=== PATIENT | female | born 1995 | race Caucasian/White ===

== ENCOUNTER → 2020-05-28 10:51 | Outpatient (BNVA) | payer MEDICAID, SELFPAY | PROVIDERS: Visit Provider Advanced Practice Midwife | DX: N92.6 Irregular menstruation, unspecified (principal) | CPT/HCPCS: 81025; 99212 ==

== ENCOUNTER 2020-06-11 09:24 | Outpatient (REF) | payer MEDICAID, SELFPAY ==
--- NOTE | ~2020-06-11 | US_ITS ---
EXAMINATION: US OBSTETRICAL ULTRASOUND CLINICAL INFORMATION: Irregular menstruation. Positive urine test. COMPARISON: None. LMP: 04/22/2020. Gestational age by maternal dates is 7 weeks 1 day. Estimated date of delivery by maternal dates is 01/27/2021. TECHNIQUE: Routine transabdominal ultrasound pelvis is performed. FINDINGS: There is a single intrauterine gestational sac with visible yolk sac, embryo/fetus, and cardiac activity. There is no significant subchorionic hemorrhage or hematoma. HR: 127 beats per minute. CRL (crown-rump length): 0.66 cm (6 weeks and 4 days +/- 4 days). JAROD (estimated date of delivery): 01/31/2021 +/- 4 days. There is visualization of yolk sac and heartbeat. movement is not yet seen. There is a small subchorionic hypoechoic area adjacent to the gestational sac suggestive of small subchorionic bleed. MATERNAL ADNEXA: The right maternal ovary measures 3.8 x 1.8 x 2.0 cm. The left maternal ovary measures 3.4 x 2.1 x 1.5 cm. There is a corpus luteal cyst measuring 1.3 x 0.9 x 1.5 cm. There is no significant maternal adnexal mass. No maternal pelvic ascites. US/US OB <= 14 weeks fetus IMPRESSION: 1. Single intrauterine gestation with ultrasound gestational age of 6 weeks 4 days +/- 4 days. 2. Estimated date of delivery is 01/31/2021 +/- 4 days. 3. Small subchorionic bleed suspected adjacent to the gestational sac. 4. Small corpus luteal cyst left ovary.
== END 2020-06-11 09:25 | disposition home or self-care (01) ==
LOC: HO.US 09:24
PROVIDERS: Visit Provider Advanced Practice Midwife
DX: N92.6 Irregular menstruation, unspecified (principal)
CPT/HCPCS: 76801

== ENCOUNTER → 2020-06-25 09:49 | Outpatient (BNVA) | payer MEDICAID, SELFPAY | PROVIDERS: Visit Provider Advanced Practice Midwife | DX: O21.9 Vomiting of pregnancy, unspecified (principal); O26.811 Pregnancy related exhaustion and fatigue, first trimester; O99.211 Obesity complicating pregnancy, first trimester; Z3A.09 9 weeks gestation of pregnancy | CPT/HCPCS: 99212 ==

== ENCOUNTER 2020-07-09 09:40 | Outpatient (REF) | payer MEDICAID, SELFPAY ==
[2020-07-09 13:31] LABS: MANUAL DIFF FLAG NO
[2020-07-09 13:43] LABS: Basophils Percent Auto 0.2 % (0-2); Eosinophils Absolute Auto 0.1 X10*3/uL (0.0-0.4); Eosinophils Percent Auto 1.2 % (0-4); Hematocrit 40.5 % (37-47); Hemoglobin 13.8 g/dl (12.0-16.0); Imm Gran Abs Auto 0.03 X10*3/uL (0.00-0.03); Imm Gran Pct Auto 0.4 % (0.0-0.4); Lymphocytes Absolute Auto 1.9 X10*3/uL (1.2-4.9); Lymphocytes Percent Auto 22.5 % (20-40); Mean Corpuscular HGB Conc 34.1 g/dl (31.0-35.0); Mean Corpuscular Hemoglobin 29.4 pg (27.0-33.0); Mean Corpuscular Volume 86.4 fL (80-98); Mean Platelet Volume 10.2 fL (9.4-12.3); Monocytes Absolute Auto 0.4 X10*3/uL (0.1-1.2); Monocytes Percent Auto 4.5 % (2-11); Neutrophils Absolute Auto 6.1 X10*3/uL (2.0-8.3); Neutrophils Percent Auto 71.2 % (45-73); Platelet Count 285 X10*3/uL (160-400); Red Blood Count 4.69 X10*6/uL (4.20-5.50); White Blood Count 8.5 X10*3/uL (4.8-10.8)
[2020-07-09 13:46] LABS: Glucose 1 Hour 130 mg/dL
[2020-07-09 14:17] LABS: Syphilis Screen Nonreactive (Nonreactive)
[2020-07-09 14:53] LABS: Amphetamine Screen Urine Not Detected (Not Detect); Barbiturates, Urine Not Detected (Not Detect); Benzodiazepines Screen Urine Not Detected (Not Detect); Cannabinoid Screen Urine Not Detected (Not Detect); Cocaine Screen Urine Not Detected (Not Detect); Opiate Screen Urine Not Detected (Not Detect); Phencyclidine Screen Urine Not Detected (Not Detect)
[2020-07-10 01:47] LABS: CT PCR NOT DETECTED (Not Detect.); NG PCR NOT DETECTED (Not Detect.)
[2020-07-10 05:17] LABS: Rubella IgG Antibody 5.92 Index
[2020-07-11 07:45] LABS: ~HepC Num1 0.18 S/CO (0.00-0.79); ~Hepatitis C Antibody Nonreactive (Nonreactive)
[2020-07-11 08:36] LABS: HBsAGNum1 0.22 S/CO (0.00-0.99); HIV AB/AG Nonreactive (Nonreactive); HIV Num 1 0.06 S/CO (0.00-0.99); Hepatitis B Surface Antigen Negative (Negative)
== END 2020-07-09 09:41 | disposition home or self-care (01) ==
LOC: HO.LAB 09:40
PROVIDERS: Visit Provider Advanced Practice Midwife
DX: Z34.91 Encounter for supervision of normal pregnancy, unspecified, first trimester (principal); Z20.2 Contact with and (suspected) exposure to infections with a predominantly sexual mode of transmission
CPT/HCPCS: 80307; 81003; 82951; 85025; 86762; 86780; 86787; 86803; 86850; 86900; 86901; 87086; 87340; 87389; 87491; 87591; 99212

== ENCOUNTER 2020-07-11 11:28 | Outpatient (REF) | payer MEDICAID, SELFPAY ==
--- NOTE | ~2020-07-11 | US_ITS ---
EXAMINATION: OBSTETRICAL ULTRASOUND, FIRST TRIMESTER HISTORY: 24-year-old at 11.3 weeks of gestation NT screening COMPARISON: 06/11/2020 TECHNIQUE: Real time transabdominal imaging with color and M-mode Doppler. FINDINGS: A single, live IUP CRL of 45.8 mm c/w 11.3wks is noted. Heart Rate: 156 beats per minute. Normal yolk sac seen. NT was 0.96.mm. NB Present The embryo appears sonographically wnl for this GA. Both maternal ovaries are seen and appear normal. GESTATIONAL AGE: 1. Established GA: 11.3 wks 2. GA from [facility]: 11.3 wks ESTIMATED DATE OF DELIVERY: 1. Established JAROD: 01/27/2021 2. JAROD from [facility]: 01/27/2021 US/US OB 1T nuc measure IMPRESSION: 1. A single live IUP 2. Size equals dates 3. NT of 0.96 mm MFM Consultation: I reviewed the ultrasound findings along with significance of NT measurement. The NT of less than 3mm is generally reassuring. However, the sensitivity for T21 detection is only 60%. I reviewed the availability of serum aneuploidy screening which includes cell-free DNA and placental protein based tests. I discussed the sensitivity, false-positive rate, and other limitations associated with each test. I also reviewed the availability of invasive diagnostic tests that are associated small but definite risk of miscarriage. We also reviewed the differences between screening tests and diagnostic tests. After our discussion, she opted for the First trimester screening that is based on cell-free DNA or non-invasive testing (NIPT). The result will be faxed to your office in approximately 7 days. A follow up at 18 weeks for survey has been scheduled. Thank you very much for this referral. Total time 20 minutes. The time spent was devoted to counseling the patient about the disease and diagnosis, coordinating care including reviewing her records, pertinent lab data and studies, as well as discussing diagnostic evaluation and workup, plan therapeutic interventions and future disposition of care. This includes any additional research needed to obtain further information in formulating the plan of care of this patient. This note was generated with a voice recognition program. Please excuse any errors which may have been overlooked during my review of this note. Sometimes these errors may affect the content or meaning of a given sentence.
== END 2020-07-11 11:29 | disposition home or self-care (01) ==
LOC: HO.US 11:28
PROVIDERS: Visit Provider Advanced Practice Midwife
DX: Z34.90 Encounter for supervision of normal pregnancy, unspecified, unspecified trimester (principal); Z36.82 Encounter for antenatal screening for nuchal translucency
CPT/HCPCS: 76813

== ENCOUNTER 2020-07-27 13:58 | Emergency (ER) | payer MEDICAID, SELFPAY ==
[2020-07-27 14:07] VITALS: BP 152/100; PULSE 92; RESP 18; TEMP 36.8; O2SAT 98; BMI 31.8
[2020-07-27 16:34] LABS: MANUAL DIFF FLAG NO
[2020-07-27 16:35] LABS: Basophils Percent Auto 0.3 % (0-2); Eosinophils Absolute Auto 0.1 X10*3/uL (0.0-0.4); Eosinophils Percent Auto 0.6 % (0-4); Hematocrit 41.9 % (37-47); Hemoglobin 14.5 g/dl (12.0-16.0); Imm Gran Abs Auto 0.02 X10*3/uL (0.00-0.03); Imm Gran Pct Auto 0.2 % (0.0-0.4); Lymphocytes Absolute Auto 1.9 X10*3/uL (1.2-4.9); Lymphocytes Percent Auto 18.9 % (20-40); Mean Corpuscular HGB Conc 34.6 g/dl (31.0-35.0); Mean Corpuscular Hemoglobin 29.4 pg (27.0-33.0); Mean Corpuscular Volume 84.8 fL (80-98); Mean Platelet Volume 9.7 fL (9.4-12.3); Monocytes Absolute Auto 0.4 X10*3/uL (0.1-1.2); Neutrophils Absolute Auto 7.7 X10*3/uL (2.0-8.3); Platelet Count 286 X10*3/uL (160-400); Red Blood Count 4.94 X10*6/uL (4.20-5.50); Red Cell Distribution Width 12.6 % (11.0-16.0); White Blood Count 10.1 X10*3/uL (4.8-10.8)
[2020-07-27] MEDS: 0.9 % Sodium Chloride 1,000 ML 999 ML IV (16:36)
[2020-07-27] MEDS: Lactated Ringers 1,000 ML 999 ML IV (16:36)
[2020-07-27] MEDS: ondansetron HCL 4 MG/2 ML VIAL IVPUSH (16:36)
[2020-07-27 16:49] LABS: COVID-19 Test Negative (Negative); IDNOW Serial# 9DD0AD1C
[2020-07-27 16:57] LABS: Alanine Aminotransferase 20 U/L (0-31); Albumin Level 4.4 g/dL (3.5-5.0); Alkaline Phosphatase 60 U/L (39-117); Anion Gap 14 (12-20); Aspartate Amino Transferase 17 U/L (5-31); Bilirubin Direct 0.2 mg/dL (0.0-0.5); Bilirubin Total 0.4 mg/dL (0.0-1.0); Blood Urea Nitrogen 6 mg/dL (9-16); Carbon Dioxide 23 mmol/L (22-29); Chloride 104 mmol/L (96-108); Creatinine Clr Calc Pharmacy 130.1; Estimated Glomerular Filt Rate > 60; Glucose Random 96 mg/dL (60-115); Lipase 22 U/L (8-78); Potassium 4.1 mmol/L (3.3-5.1); Sodium 137 mmol/L (135-145); Total Protein 7.4 g/dL (6.5-8.0)
--- NOTE | 2020-07-27 17:29 | ED.NAVMDI ---
HPI - Nausea/Vomiting/Diarrhea General Chief complaint: Nausea/Vomiting/Diarrhea Stated complaint: VOMITING PREG Time Seen by Provider: 07/27/20 14:50 Source: patient Mode of arrival: ambulatory Limitations: no limitations History of Present Illness HPI Narrative: Patient presents ED for vomiting and not able to to keep stuff down her stomach. Patient denies any abdominal pain, vaginal bleeding, dysuria, hematuria, back pain, or flank pain. Patient taking vitamin being B6 and diphenhydramine and as prescribed by her OBGYN. Patient denies any coughing, fever, chills, chest pain, shortness of breath Associated nausea: Yes Related Data Previous Rx's Medication Instructions Recorded vitamin with calcium 1 tab PO DAILY #30 tab 05/28/20 no.72-iron 27 mg-folic acid 1 mg tablet pyridoxine (vitamin B6) 25 mg 25 mg PO TID 30 Days #90 tab 06/11/20 tablet doxylamine succinate 25 mg tablet 12.5 mg PO BEDTIME #15 tab 06/30/20 Allergies Allergy/AdvReac Type Severity Reaction Status Date / Time sulfamethoxazole Allergy Intermediate RASH Verified 07/09/20 10:07 [From BACTRIM] trimethoprim [From BACTRIM] Allergy Intermediate RASH Verified 07/09/20 10:07 Review of Systems Review of Systems: Yes all other systems are reviewed and are negative Constitutional: Constitutional: Reports as per HPI and Reports no additional constitutional complaints Eyes: Eyes: Reports as per HPI and Reports no additional eye complaints ENT: Reports system reviewed and no additional complaints, except as documented and Reports as per HPI Cardiovascular: Cardiovascular: Reports as per HPI and Reports no additional cardiovascular complaints Respiratory: Respiratory: Reports as per HPI and Reports no additional respiratory complaints Gastrointestinal: Gastrointestinal: Reports as per HPI, Reports no additional gastrointestinal complaints, Denies abdominal pain, Denies belching, Reports nausea and Reports vomiting Genitourinary: Genitourinary: Reports no additional female genitourinary complaints and Reports as per HPI Musculoskeletal: Musculoskeletal: Reports no additional musculoskeletal complaints and Reports as per HPI Neurologic: Reports system reviewed and no additional complaints, except as documented and Reports as per HPI Psychiatric: Psychiatric: Reports no additional psychiatric complaints and Reports as per HPI PMF Past Medical History Medical History Obesity (BMI 30-39.9) Family History Family History Mother HTN (hypertension) Maternal Grandmother Epilepsy Maternal Aunt Diabetes Brother Coloboma, congenital heart disease, choanal atresia, growth retardation, genital hypoplasia, ear and hearing anomaly (CHARGE) syndrome Sister Autism disorder Social History Social History Household Members: Significant Other and Children Housing: House Alcohol intake: never Special misty needs: No Agree to transfusion: Yes Advance Directives: Yes Advance Directives Information Provided: Yes Advance Directives on File: No Patient : Yes Physical Exam Vital Signs: Vital Signs: Last Vital Signs Temp 98.2 F 07/27/20 14:07 Pulse 92 07/27/20 14:07 Resp 18 07/27/20 14:07 BP 152/100 H 07/27/20 14:07 Pulse Ox 98 07/27/20 14:07 Body Mass Index 31.8 Const: General: cooperative, healthy appearing, comfortable, no acute distress, well developed, alert, awake and Physically active Orientation/consciousness: patient oriented x3 HENMT: Head: Yes normal to inspection, Yes No palpable skull fracture present, Yes normocephalic and Yes atraumatic Eyes: General: appearance normal, both eyes and all related structures Neck: Neck: Yes normal visual inspection, Yes full ROM, Yes no lymphadenopathy, Yes no meningeal signs, Yes trachea midline, Yes supple and No tender Chest: Chest palpation & inspection: normal inspection of the chest and normal palpation of entire chest wall Resp: Effort & Inspection: normal respiratory effort and able to speak in complete sentences Auscultation: clear to auscultation bilaterally Cardio: Jugular venous distension: no JVD Heart sounds: S1 normal heart sound present and S2 normal heart sound present GI: Inspection: Yes normal to inspection and No abdominal wall ecchymosis Palpation (GI): Soft to palpation, not firm, nontender, no guarding and not rigid : General: No CVA tenderness and Yes no CVA tenderness Back/Spine/Pelvis: Back: no CVA tenderness, No CVA tenderness and No back tenderness Skin: General skin exam: no rashes or lesions noted and elasticity normal Neuro: General: patient oriented x3, gait normal, no meningeal signs and CN's II-XI intact bilaterally Cranial nerves: Yes CN's II-XII intact bilaterally Extrem: General: Yes normal to inspection and Yes full ROM Psych: Appearance: grossly normal, well kempt and not disheveled Course Course Course Narrative: Patient will have labs drawn given fluid. Reevaluation(s) Reevaluation #1: Patient given fluids. Patient given Zofran. Waiting for UA. Will do p.o. challenge. No need for ultrasound. Patient is not complaining of any abdominal pain or vaginal bleeding.Sign out to [employer]EL[employer] Samira MDM - Nausea/Vomiting/Diarrhea MDM Narrative Medical decision making narrative: Hyperemesis Lab Data Result diagrams: 07/27/20 16:07/27/20 16: Labs: Lab Results 07/27/20 07/27/20 07/27/20 Range/Units 16:28 16:28 16:28 WBC 10.1 (4.8-10.8) X10*3/uL RBC 4.94 (4.20-5.50) X10*6/uL Hgb 14.5 (12.0-16.0) g/dl Hct 41.9 (37-47) % MCV 84.8 (80-98) fL MCH 29.4 (27.0-33.0) pg MCHC 34.6 (31.0-35.0) g/dl RDW 12.6 (11.0-16.0) % Plt Count 286 (160-400) X10*3/uL MPV 9.7 (9.4-12.3) fL Immature Gran % (Auto) 0.2 (0.0-0.4) % Neut % (Auto) 76.0 H (45-73) % Lymph % (Auto) 18.9 L (20-40) % [place] % (Auto) 4.0 (2-11) % Eos % (Auto) 0.6 (0-4) % Baso % (Auto) 0.3 (0-2) % Lymph # (Auto) 1.9 (1.2-4.9) X10*3/uL [place] # (Auto) 0.4 (0.1-1.2) X10*3/uL Eos # (Auto) 0.1 (0.0-0.4) X10*3/uL Baso # (Auto) 0.0 (0.0-0.2) X10*3/uL Abs Immat Gran (auto) 0.02 (0.00-0.03) X10*3/uL Absolute Neuts (auto) 7.7 (2.0-8.3) X10*3/uL Absolute Nucleated RBC 0.000 (0.0-0.012) X10*3/uL Nucleated RBC % (auto) 0.0 (0.0-0.2) /100WBC Sodium 137 (135-145) mmol/L Potassium 4.1 (3.3-5.1) mmol/L Chloride 104 (96-108) mmol/L Carbon Dioxide 23 (22-29) mmol/L Anion Gap 14 (12-20) BUN 6 L (9-16) mg/dL Creatinine 0.68 (0.5-1.4) mg/dL Estim Creat Clear Calc 130.1 Estimated GFR > 60 Random Glucose 96 (60-115) mg/dL Calcium 10.0 (8.4-10.2) mg/dL Total Bilirubin 0.4 (0.0-1.0) mg/dL Direct Bilirubin 0.2 (0.0-0.5) mg/dL AST 17 (5-31) U/L ALT 20 (0-31) U/L Alkaline Phosphatase 60 (39-117) U/L Total Protein 7.4 (6.5-8.0) g/dL Albumin 4.4 (3.5-5.0) g/dL Lipase 22 (8-78) U/L Beta HCG, Quant 97763 mIU/mL COVID-19 (NACHO) Negative (Negative) COVID-19 Clin Com See Note Discharge Plan Discharge Clinical Impression: Hyperemesis gravidarum Patient Disposition: Home, Self-Care Prescriptions: No Action Vitamin Plus Low Iron 27 mg iron- 1 mg tablet 1 tab PO DAILY Qty: 30 RF: 11 pyridoxine (vitamin B6) 25 mg tablet 25 mg PO TID 30 Days Qty: 90 RF: 1 doxylamine succinate [Nighttime Sleep-Aid (doxylamn)] 25 mg tablet 12.5 mg PO BEDTIME Qty: 15 RF: 0
[2020-07-27 18:00] VITALS: RESP 18
[2020-07-27 18:09] LABS: Glucose Urine UA NEG (NEG); Leukocyte Esterase Urine NEG (NEG); Nitrite Urine NEG (NEG); Specific Gravity - Urine 1.025 (1.005-1.025); Urine Blood NEG (NEG); Urine Ketones >=80 MG/DL (NEG); Urine Protein NEG (NEG-TRACE)
[2020-07-27 18:10] LABS: UPreg QC Valid YES; Urine Pregnancy POSITIVE (NEGATIVE)
[2020-07-27 18:11] LABS: Appearance Urine CLEAR; Color Urine YELLOW
[2020-07-27 18:13] LABS: INTERNATIONAL NORM RATIO 1.1 (0.9-1.1); Prothrombin Time 13.3 SEC (10.8-13.0)
[2020-07-27 18:15] LABS: Partial Thromboplastin Time 32.9 SEC (24.1-38.0)
== END 2020-07-27 19:05 | disposition home or self-care (01) ==
PROVIDERS: Physician Assistant; Emergency Provider Emergency Medicine Emergency Medical Services
DX: O21.0 Mild hyperemesis gravidarum (principal); Z20.822 Contact with and (suspected) exposure to COVID-19; O99.210 Obesity complicating pregnancy, unspecified trimester; E66.9 Obesity, unspecified; Z3A.00 Weeks of gestation of pregnancy not specified
CPT/HCPCS: 36415; 80053; 80076; 81003; 81025; 82248; 83690; 84702; 85025; 85610; 85730; 87635; 96361; 96374; 99284; J2405

== ENCOUNTER → 2020-08-06 10:31 | Outpatient (BNVA) | payer MEDICAID, SELFPAY | PROVIDERS: Visit Provider Advanced Practice Midwife | DX: O35.9XX0 Maternal care for (suspected) fetal abnormality and damage, unspecified, not applicable or unspecified (principal); Z3A.15 15 weeks gestation of pregnancy | CPT/HCPCS: 81003; 99212 ==

== ENCOUNTER 2020-08-29 11:02 | Outpatient (REF) | payer MEDICAID, SELFPAY ==
--- NOTE | ~2020-08-29 | US_ITS ---
EXAMINATION: US OBSTETRICAL CLINICAL INFORMATION: 24-year-old at 18.3 weeks of gestation Screening for anomaly COMPARISON: 07/11/2020 TECHNIQUE: Real-time transabdominal ultrasound was performed using C1-5 megahertz transducer. FINDINGS: A single, active, fetus is seen in vertex presentation. The placenta is posterior without previa, and the amniotic fluid volume is wnl. MEASUREMENTS: 1. Biparietal Diameter: 4.1 cm; 18.4 wks 2. Occipital Frontal Diameter: 5.2 cm 3. Head Circumference: 15.4 cm; 18.3 wks 4. Abdominal Circumference: 12.8 cm; 18.3 wks 5. Femur Length: 2.6 cm; 17.6 wks 6. Humerus Length: 2.6 cm; 18.1 wks 7. Tibia Length: 2.3 cm; 18.2 wks 8. Ulna Length: 2.4 cm; 18.3 wks 9. Lateral ventricle: 0.6 cm 10. Cerebellum: 1.9 cm; 19.3 wks 11. Cisterna Magna: 0.4 cm 12. Nuchal Fold: 3.74 mm 13. Heart Rate: 138 beats per minute Rt ovary: normal Lt ovary: normal Cervical length 3.2 cm on T/A. GESTATIONAL AGE: 1. Established GA: 18.3 wks 2. GA from [facility]: 18.3 wks ESTIMATED DATE OF DELIVERY: 1. Established JAROD: 01/27/2021 2. JAROD from [facility]: 01/27/2021 ANATOMY: The visualized anatomy includes but not limited to: 1. Cranium: Normal 2. Intracranial anatomy: cavum septum pellucidi, lateral ventricles, choroid plexus, cerebellum, posterior fossa, third and fourth ventricles. 3. face: orbits, lip/palate, profile, nasal bone 4. Heart: four-chamber view of the heart, ventricular septum, foramen ovale, pulmonary vein, left and right outflow tracts, three-vessel view, 3 vessel trachea view, aortic and ductal arches, situs.. 5. Diaphragm: Normal 6. Abdominal wall: Normal 7. Cord Insertion: Normal 8. Spine: Cervical, thoracic, lumbar, sacral. 9. Stomach: Normal size and shape 10. Right Kidney: Normal 11. Left Kidney: Normal 12. 3 vessel cord: Normal 13. Upper extremity: Open hands, fifth digit. 14. Lower extremity: Tibia, fibula, bilateral feet. 15. Bladder: Normal 16. Genitalia: Male, patient aware US/US OB /maternal det add IMPRESSION: 1. Single, living, intrauterine with appropriate biometry. 2. Normal survey DISCUSSION: I reviewed today's ultrasound findings. We discussed the limitations of ultrasound in diagnosing aneuploidy and other congenital abnormalities. I reviewed the differences between screening test and diagnostic test. Amniocentesis was discussed and declined. She was informed that the baseline incidence of congenital abnormalities is approximately 3-5%. Not all these conditions are diagnosable in utero. RECOMMENDATIONS: Follow-up when necessary Thank you for allowing me to participate in her care. Total time 30 minutes. The time spent was devoted to counseling the patient about the disease and diagnosis, coordinating care including reviewing her records, pertinent lab data and studies, as well as discussing diagnostic evaluation and workup, plan therapeutic interventions and future disposition of care. This includes any additional research needed to obtain further information in formulating the plan of care of this patient. This note was generated with a voice recognition program. Please excuse any errors which may have been overlooked during my review of this note. Sometimes these errors may affect the content or meaning of a given sentence.
== END 2020-08-29 11:03 | disposition home or self-care (01) ==
LOC: HO.US 11:02
PROVIDERS: Visit Provider Advanced Practice Midwife
DX: Z34.92 Encounter for supervision of normal pregnancy, unspecified, second trimester (principal); Z36.3 Encounter for antenatal screening for malformations
CPT/HCPCS: 76811; 76812

== ENCOUNTER → 2020-09-05 10:21 | Outpatient (BNVA) | payer MEDICAID, SELFPAY | PROVIDERS: Visit Provider Advanced Practice Midwife | DX: Z34.92 Encounter for supervision of normal pregnancy, unspecified, second trimester (principal); Z3A.19 19 weeks gestation of pregnancy | CPT/HCPCS: 99212 ==

== ENCOUNTER → 2020-10-07 11:36 | Outpatient (BNVA) | payer MEDICAID, SELFPAY | PROVIDERS: Visit Provider Advanced Practice Midwife | DX: O99.212 Obesity complicating pregnancy, second trimester (principal); Z3A.24 24 weeks gestation of pregnancy; Z88.1 Allergy status to other antibiotic agents; Z79.82 Long term (current) use of aspirin | CPT/HCPCS: 81003; 99212 ==

== ENCOUNTER 2020-11-05 10:40 | Outpatient (REF) | payer MEDICAID, SELFPAY ==
[2020-11-05 13:08] LABS: Hematocrit 34.9 % (37-47); Hemoglobin 12.1 g/dl (12.0-16.0); Mean Corpuscular HGB Conc 34.7 g/dl (31.0-35.0); Mean Corpuscular Hemoglobin 29.9 pg (27.0-33.0); Mean Corpuscular Volume 86.2 fL (80-98); Mean Platelet Volume 9.9 fL (9.4-12.3); Platelet Count 230 X10*3/uL (160-400); Red Blood Count 4.05 X10*6/uL (4.20-5.50); Red Cell Distribution Width 13.6 % (11.0-16.0); White Blood Count 9.5 X10*3/uL (4.8-10.8)
[2020-11-05 13:23] LABS: Glucose 1 Hour PP 50gm Dose 157 mg/dL (60-140)
[2020-11-05 13:50] LABS: Syphilis Screen Nonreactive (Nonreactive)
== END 2020-11-05 10:41 | disposition home or self-care (01) ==
LOC: HO.LAB 10:40
PROVIDERS: Visit Provider Advanced Practice Midwife
DX: Z34.93 Encounter for supervision of normal pregnancy, unspecified, third trimester (principal); Z3A.28 28 weeks gestation of pregnancy
CPT/HCPCS: 36415; 81003; 85027; 86780; 99212

== ENCOUNTER 2020-11-10 10:16 | Outpatient (REF) | payer MEDICAID, SELFPAY | END 2020-11-10 10:17 | disposition home or self-care (01) | LOC: HO.LAB 10:16 | PROVIDERS: Visit Provider Advanced Practice Midwife | DX: Z13.89 Encounter for screening for other disorder (principal) ==

== ENCOUNTER → 2020-11-13 13:00 | Outpatient (BNVA) | payer MEDICAID, SELFPAY | PROVIDERS: Visit Provider Advanced Practice Midwife | DX: Z34.93 Encounter for supervision of normal pregnancy, unspecified, third trimester (principal); Z3A.29 29 weeks gestation of pregnancy | CPT/HCPCS: 99211 ==

== ENCOUNTER → 2020-11-19 13:04 | Outpatient (BNVA) | payer MEDICAID, SELFPAY | PROVIDERS: Visit Provider Advanced Practice Midwife | DX: O24.410 Gestational diabetes mellitus in pregnancy, diet controlled (principal); Z3A.30 30 weeks gestation of pregnancy | CPT/HCPCS: 99212 ==

== ENCOUNTER 2020-11-28 11:18 | Outpatient (REF) | payer MEDICAID, SELFPAY ==
--- NOTE | ~2020-11-28 | US_ITS ---
EXAMINATION: OBSTETRICAL ULTRASOUND, Follow up HISTORY: A 25-year-old at 31.3 weeks of gestation GDM on diet COMPARISON: 08/29/2020 TECHNIQUE: Real time transabdominal imaging with color and M-mode Doppler. PRESENTATION: Vertex PLACENTA LOCATION: Posterior without previa AMNIOTIC FLUID: [place] 13.8 MEASUREMENTS: 1. Biparietal Diameter: 7.8 cm; 31.3 wks 2. Head Circumference: 28.6 cm; 31.3 wks 3. Abdominal Circumference: 26.4 cm; 30.4 wks 4. Femur Length: 6.03 cm; 31.3 wks 5. Heart Rate: 134 beats per minute WEIGHT: EFW: 1672 grams (3 lbs 11 oz) -- 24 %. BIOPHYSICAL PROFILE: Motion: 2 Tone: 2 Breathin Amniotic Fluid: 2 Total score: 8/8 GESTATIONAL AGE: 1. Established GA: 31.3 wks 2. GA from [facility]: 31.2 wks ESTIMATED DATE OF DELIVERY: 1. Established JAROD: 01/27/2021 2. JAROD from [facility]: 01/28/2021 US/US OB follow up IMPRESSION: 1. A single active fetus is in vertex presentation 2. Size equals dates 3. Normal BPP score and amniotic fluid index. Patient is currently on GDM diet and monitoring her fingerstick glucose values. She was unable to tolerate her 1 hour GLT. According to patient, most of her fasting and postprandial values are within target range. I gave her reassurance regarding the size. We reviewed the clinical consequences of suboptimally controlled maternal serum glucose. Maternal hypoglycemia has been associated with the increased incidence of macrosomia and hypoglycemia. If her fingerstick glucose values are acceptable on diet alone, a follow-up evaluation in approximately one month is suggested. (Not scheduled) Thank you very much for this referral. Total time 30 minutes. The time spent was devoted to counseling the patient about the disease and diagnosis, coordinating care including reviewing her records, pertinent lab data and studies, as well as discussing diagnostic evaluation and workup, plan therapeutic interventions and future disposition of care. This includes any additional research needed to obtain further information in formulating the plan of care of this patient. This note was generated with a voice recognition program. Please excuse any errors which may have been overlooked during my review of this note. Sometimes these errors may affect the content or meaning of a given sentence.
== END 2020-11-28 11:19 | disposition home or self-care (01) ==
LOC: HO.US 11:18
PROVIDERS: Visit Provider Advanced Practice Midwife
DX: O24.419 Gestational diabetes mellitus in pregnancy, unspecified control (principal); Z3A.31 31 weeks gestation of pregnancy
CPT/HCPCS: 76816

== ENCOUNTER → 2020-12-02 13:22 | Outpatient (BNVA) | payer MEDICAID, SELFPAY | PROVIDERS: Visit Provider Advanced Practice Midwife | DX: Z34.83 Encounter for supervision of other normal pregnancy, third trimester (principal); Z3A.32 32 weeks gestation of pregnancy | CPT/HCPCS: 81003; 99212 ==

== ENCOUNTER → 2020-12-04 13:02 | Outpatient (BNVA) | payer MEDICAID, SELFPAY | PROVIDERS: Visit Provider Obstetrics & Gynecology | DX: O24.410 Gestational diabetes mellitus in pregnancy, diet controlled (principal); Z3A.32 32 weeks gestation of pregnancy | CPT/HCPCS: 59025; 99212 ==

== ENCOUNTER 2020-12-16 08:53 | Outpatient (REF) | payer MEDICAID, SELFPAY ==
--- NOTE | ~2020-12-16 | US_ITS ---
EXAMINATION: US OBSTETRICAL (BIOPHYSICAL PROFILE) CLINICAL INFORMATION: Variable deceleration COMPARISON: Ultrasound OB 11/28/2020 TECHNIQUE: Ultrasound of the pelvis is performed. Biophysical profile is performed over 30 minutes with assessment of breathing, gross body movement, tone, and qualitative amniotic fluid volume. Each matrix is scored 0 or 2, depending if the metric is present. Maximum total score possible is 8. Examination is not intended to assess for anomalies. FINDINGS: POSITION: Cephalic PLACENTA: Posterior, grade 2 AMNIOTIC FLUID INDEX: 10.5 cm CARDIAC ACTIVITY: 136 beats per minute BIOPHYSICAL PROFILE: Motion: 2 Tone: 2 Breathin Amniotic Fluid: 2 Total score: 8/8 US/US OB biophysical profile IMPRESSION: 1. Single intrauterine gestation in cephalic position with posterior placenta. 2. Total biophysical score is 8 (scale 0-8). 3. Amniotic fluid index 10.5 cm. 4. cardiac activity 136 beats per minute.
[2020-12-17 09:05] LABS: BV Int Neg Control Negative (Negative); BV Int Pos Control Positive (Positive)
[2020-12-17 11:13] LABS: CT PCR NOT DETECTED (Not Detect.); NG PCR NOT DETECTED (Not Detect.)
== END 2020-12-16 08:54 | disposition home or self-care (01) ==
LOC: HO.US 08:53
PROVIDERS: Visit Provider Advanced Practice Midwife
DX: O36.8330 Maternal care for abnormalities of the fetal heart rate or rhythm, third trimester, not applicable or unspecified (principal); O26.893 Other specified pregnancy related conditions, third trimester; N89.8 Other specified noninflammatory disorders of vagina
CPT/HCPCS: 59025; 76819; 81003; 87480; 87491; 87510; 87591; 87660; 99212

== ENCOUNTER → 2020-12-18 13:41 | Outpatient (BNVA) | payer MEDICAID, SELFPAY | PROVIDERS: Visit Provider Advanced Practice Midwife | DX: O24.419 Gestational diabetes mellitus in pregnancy, unspecified control (principal); Z3A.34 34 weeks gestation of pregnancy; O99.891 Other specified diseases and conditions complicating pregnancy; Z86.59 Personal history of other mental and behavioral disorders | CPT/HCPCS: 99212 ==

== ENCOUNTER 2020-12-22 11:42 | Outpatient (REF) | payer MEDICAID, SELFPAY ==
[2020-12-22 13:16] LABS: Hemoglobin 12.8 g/dl (12.0-16.0); Mean Corpuscular HGB Conc 34.6 g/dl (31.0-35.0); Mean Corpuscular Hemoglobin 30.3 pg (27.0-33.0); Mean Corpuscular Volume 87.5 fL (80-98); Mean Platelet Volume 10.6 fL (9.4-12.3); Platelet Count 230 X10*3/uL (160-400); Red Blood Count 4.23 X10*6/uL (4.20-5.50); White Blood Count 9.6 X10*3/uL (4.8-10.8)
[2020-12-22 13:32] LABS: Alanine Aminotransferase 18 U/L (0-31); Aspartate Amino Transferase 17 U/L (5-31); Blood Urea Nitrogen 7 mg/dL (9-16)
[2020-12-22 14:10] LABS: Creatinine Urine 20.22 mg/dL; Total Protein Urine Random < 7 mg/dL (<12)
== END 2020-12-22 11:43 | disposition home or self-care (01) ==
LOC: HO.LAB 11:42
PROVIDERS: Visit Provider Advanced Practice Midwife
DX: O26.893 Other specified pregnancy related conditions, third trimester (principal); R03.0 Elevated blood-pressure reading, without diagnosis of hypertension; R51.9 Headache, unspecified; O24.419 Gestational diabetes mellitus in pregnancy, unspecified control; Z3A.34 34 weeks gestation of pregnancy
CPT/HCPCS: 36415; 84156; 84450; 84460; 84520; 85027; 99212

== ENCOUNTER 2021-01-07 11:47 | Outpatient (REF) | payer MEDICAID, SELFPAY ==
[2021-01-07 16:39] LABS: CT PCR NOT DETECTED (Not Detect.); NG PCR NOT DETECTED (Not Detect.)
[2021-01-08 10:55] LABS: BV Int Neg Control Negative (Negative); BV Int Pos Control Positive (Positive)
== END 2021-01-07 11:48 | disposition home or self-care (01) ==
LOC: HO.LAB 11:47
PROVIDERS: Visit Provider Advanced Practice Midwife
DX: O26.899 Other specified pregnancy related conditions, unspecified trimester (principal); O99.213 Obesity complicating pregnancy, third trimester; N89.8 Other specified noninflammatory disorders of vagina; Z3A.37 37 weeks gestation of pregnancy; Z68.38 Body mass index [BMI] 38.0-38.9, adult
CPT/HCPCS: 87081; 87480; 87491; 87510; 87591; 87660; 99212

== ENCOUNTER → 2021-01-12 13:00 | Outpatient (BNVA) | payer MEDICAID, SELFPAY | PROVIDERS: Visit Provider Advanced Practice Midwife | DX: O24.419 Gestational diabetes mellitus in pregnancy, unspecified control (principal); E66.9 Obesity, unspecified; Z3A.37 37 weeks gestation of pregnancy | CPT/HCPCS: 81003; 99212 ==

== ENCOUNTER → 2021-01-13 13:54 | Outpatient (BNVA) | payer MEDICAID, SELFPAY | PROVIDERS: Visit Provider Advanced Practice Midwife | DX: O24.419 Gestational diabetes mellitus in pregnancy, unspecified control (principal); O36.8330 Maternal care for abnormalities of the fetal heart rate or rhythm, third trimester, not applicable or unspecified; Z3A.38 38 weeks gestation of pregnancy | CPT/HCPCS: 59025; 99212 ==

== ENCOUNTER → 2021-01-14 14:04 | Outpatient (BNVA) | payer MEDICAID, SELFPAY | PROVIDERS: Visit Provider Advanced Practice Midwife | DX: O16.3 Unspecified maternal hypertension, third trimester (principal); Z3A.38 38 weeks gestation of pregnancy | CPT/HCPCS: 99212 ==

== ENCOUNTER → 2021-01-19 14:48 | Outpatient (BNVA) | payer MEDICAID, SELFPAY | PROVIDERS: Visit Provider Advanced Practice Midwife | DX: O14.95 Unspecified pre-eclampsia, complicating the puerperium (principal); Z3A.38 38 weeks gestation of pregnancy | CPT/HCPCS: 99212 ==

== ENCOUNTER → 2021-03-02 14:03 | Outpatient (BNVA) | payer MEDICAID, SELFPAY | PROVIDERS: Visit Provider Advanced Practice Midwife | DX: O14.95 Unspecified pre-eclampsia, complicating the puerperium (principal); Z30.011 Encounter for initial prescription of contraceptive pills | CPT/HCPCS: 99212 ==

== ENCOUNTER 2021-03-26 12:37 | Outpatient (REF) | payer MEDICAID, SELFPAY ==
--- NOTE | ~2021-03-26 | XR_ITS ---
EXAMINATION: XR WRIST, LEFT CLINICAL INFORMATION: Left wrist pain COMPARISON: None TECHNIQUE: Four views of the left wrist. FINDINGS: Visualized portion of the distal left radius and ulna demonstrate no fracture. Carpal rows are well aligned. No carpal bone fracture. No focal soft tissue swelling of the wrist. Visualized metacarpals demonstrate no fracture. XR/XR wrist LT min 3V IMPRESSION: Unremarkable radiographs of the left wrist.
== END 2021-03-26 12:38 | disposition home or self-care (01) ==
LOC: HO.XRAY 12:37
PROVIDERS: PCP Registered Nurse Community Health; Visit Provider Registered Nurse Community Health
DX: M25.532 Pain in left wrist (principal)
CPT/HCPCS: 73110

== ENCOUNTER → 2021-04-03 13:39 | Outpatient (BNVA) | payer MEDICAID, SELFPAY | PROVIDERS: PCP Registered Nurse Community Health; Visit Provider Advanced Practice Midwife | DX: Z30.09 Encounter for other general counseling and advice on contraception (principal); R51.9 Headache, unspecified; T38.4X5A Adverse effect of oral contraceptives, initial encounter; Z87.59 Personal history of other complications of pregnancy, childbirth and the puerperium | CPT/HCPCS: 99212 ==

== ENCOUNTER → 2021-05-04 14:42 | Outpatient (BNVA) | payer MEDICAID, SELFPAY | PROVIDERS: Visit Provider Advanced Practice Midwife ==

== ENCOUNTER 2021-06-20 13:42 | Emergency (ER) | payer MEDICAID, SELFPAY ==
--- NOTE | ~2021-06-20 | US_ITS ---
EXAMINATION: US ABDOMEN LIMITED CLINICAL INFORMATION: Upper abdominal pain and nausea. COMPARISON: None TECHNIQUE: Real-time imaging of the right upper quadrant abdominal viscera. FINDINGS: PANCREAS: Normal. LIVER: Normal. The liver is normal in size. The liver contour is normal. Parenchymal echogenicity is normal. No focal hepatic lesion. There is no intrahepatic biliary duct dilatation seen. GALLBLADDER: Echogenic sludge. The gallbladder is physiologically distended without evidence of stones, polyps, wall thickening or pericholecystic fluid. COMMON BILE DUCT: Normal in caliber measuring 0.3 cm in diameter. RIGHT KIDNEY: Increased echogenicity of the renal pyramids. No hydronephrosis. No renal calculi or focal parenchymal lesions. The kidney measures 13.4 cm in maximum dimension. FREE FLUID: None. US/US abdomen limited IMPRESSION: Increased echogenicity of the renal pyramids which is nonspecific but could be seen in cases of medullary nephrocalcinosis. Recommend clinical correlation. Echogenic gallbladder sludge with no shadowing stones, gallbladder wall thickening nor pericholecystic free fluid.
[2021-06-20 13:54] VITALS: BP 154/69; PULSE 108; RESP 20; TEMP 36.1; O2SAT 98; BMI 35.4
[2021-06-20] MEDS: Ondansetron ODT 4 MG TAB.RAPDIS TRANSLINGU (13:57)
[2021-06-20 14:49] LABS: MANUAL DIFF FLAG NO
[2021-06-20 15:00] LABS: Basophils Percent Auto 0.2 % (0-2); Eosinophils Absolute Auto 0.1 X10*3/uL (0.0-0.4); Eosinophils Percent Auto 0.7 % (0-4); Hematocrit 46.1 % (37.0-47.0); Hemoglobin 15.7 g/dl (12.0-16.0); Imm Gran Abs Auto 0.03 X10*3/uL (0.00-0.03); Imm Gran Pct Auto 0.4 % (0.0-0.4); Lymphocytes Absolute Auto 0.9 X10*3/uL (1.2-4.9); Lymphocytes Percent Auto 10.5 % (20-40); Mean Corpuscular HGB Conc 34.1 g/dl (31.0-35.0); Mean Corpuscular Volume 85.2 fL (80.0-98.0); Mean Platelet Volume 9.5 fL (9.4-12.3); Monocytes Absolute Auto 0.4 X10*3/uL (0.1-1.2); Monocytes Percent Auto 4.6 % (2-11); Neutrophils Absolute Auto 6.9 x10*3/uL (2.0-8.3); Neutrophils Percent Auto 83.6 % (45-73); Platelet Count 285 X10*3/uL (160-400); Red Blood Count 5.41 X10*6/uL (4.20-5.50); White Blood Count 8.3 X10*3/uL (4.8-10.8)
[2021-06-20 15:05] LABS: COVID-19 Test Negative (Negative); IDNOW Serial# 55D5AD1C; Influenza A Negative (Negative); Influenza B2 Negative (Negative)
[2021-06-20 15:11] LABS: Anion Gap 10 (12-20); Blood Urea Nitrogen 12 mg/dL (9-16); Calcium 9.5 mg/dL (8.4-10.2); Carbon Dioxide 26 mmol/L (22-29); Chloride 105 mmol/L (96-108); Creatinine Clr Calc Pharmacy 120.4; Estimated Glomerular Filt Rate > 60; Glucose Random 92 mg/dL (60-115); Potassium 4.4 mmol/L (3.3-5.1); Sodium 137 mmol/L (135-145)
--- NOTE | 2021-06-20 16:48 | ED.ABDPAIN ---
HPI - Abdominal Pain General Chief Complaint: Nausea/Vomiting/Diarrhea Stated Complaint: Headache/Nausea Time Seen by Provider: 06/20/21 16:23 Source: patient Mode of arrival: ambulatory Limitations: no limitations History of Present Illness HPI narrative: 25-year-old female with a past medical history of gestational diabetes and who had high blood pressure while she was a year ago presenting to the ED with complaints of nausea/diarrhea and lower abdominal cramping since yesterday. She reports intermittent headaches. She is also concerned about her blood glucose level reports that she wants to see if her blood sugars still high due to while she was it was high. She also reports that she wants her blood pressure recheck due to she believes her blood pressure has been running high and she has tried to talk to her doctor about this although her doctor believes that she is too young to have high blood pressure. She denies any fevers, chills, dizziness, neck pain/stiffness, trouble swallowing or breathing, chest pain or shortness of breath, dyspnea on exertion, orthopnea, palpitations, paresthesias, radiation of the abdominal pain, dysuria, hematuria, abnormal vaginal discharge, black or bloody stools, vomiting, constipation, recent travel or sick contacts, bad food exposure, others with similar symptoms, recent antibiotic usage, recent surgery or procedure, recent injury, similar symptoms in the past, possible bad food exposure or any other symptoms complaints or concerns at this time. MD elicited complaint: abdominal pain Pertinent past history: none Onset (ago): day(s) (2) Pain Consistency: constant Location: epigastric, LUQ and RUQ Severity: moderate Quality: cramping and aching Radiation: none Migration to: no migration Exacerbating factors: nothing Relieving factors: nothing Associated symptoms: nausea, vomiting and diarrhea Related Data Date of Last Menstrual Period: 05/29/21 Previous Rx's Medication Instructions Recorded norethindrone (contraceptive) 0.35 0.35 mg PO DAILY #84 tab 04/03/21 mg tablet dicyclomine 20 mg tablet 20 mg PO TID #14 tab 06/20/21 ondansetron 4 mg disintegrating 4 mg PO Q6-8H PRN #14 tab 06/20/21 tablet Allergies Allergy/AdvReac Type Severity Reaction Status Date / Time sulfamethoxazole Allergy Intermediate RASH Verified 05/04/21 14:57 [From BACTRIM] trimethoprim [From BACTRIM] Allergy Intermediate RASH Verified 03/02/21 14:25 Review of Systems Review of Systems Constitutional : No Fever, No Chills, No Night Sweats, No Fatigue, No Malaise Cardiovascular : No Chest Pain, No SOB Respiratory : No Cough, No Sputum, No Wheezing, No Dyspnea Gastrointestinal : + Nausea, No Vomiting, + Diarrhea, + abdominal Pain, No Hematochezia, No Melena Genitourinary : No irregular bleeding, No Dysuria, No Urinary Frequency, No Hematuria,No Urinary Incontinence, No Urgency, No Flank Pain Musculoskeletal : No joint pain, No Myalgias, No Joint Swelling Skin : No Skin Lesions, No rash Neuro : No Weakness, No Numbness, No Paresthesias, No Loss of Consciousness, No Dizziness, + Headache Heme/Lymph: No Lymphadenopathy Endocrine : No Temperature Intolerance Yes all other systems are reviewed and are negative ON LICENSE OF [facility] Past Medical History Attestation statement: The following information was validated with the patient. Medical History Fall (on) (from) other stairs and steps, initial encounter Obesity (BMI 30-39.9) Date of Last Menstrual Period: 05/29/21 Family History Family History Mother HTN (hypertension) Maternal Grandmother Epilepsy Maternal Aunt Diabetes Brother Coloboma, congenital heart disease, choanal atresia, growth retardation, genital hypoplasia, ear and hearing anomaly (CHARGE) syndrome Sister Autism disorder Social History Social History Household Members: Significant Other and Children Housing: House Alcohol intake: never Patient Tobacco Use Status: Never used Tobacco Special misty needs: No Agree to transfusion: Yes Advance Directives: No Advance Directives Information Provided: No Patient : No Physical Exam ED Vital Signs: Vital Signs - 24 hr 06/20/21 13:54 Temperature 97.0 F Pulse Rate 108 H Respiratory Rate 20 Blood Pressure 154/69 H Pulse Oximetry 98 BMI result Body Mass Index 35.4 Vital signs have been reviewed and blood pressure 154/69. Pulse 108. Respiration 20. Temperature 97.0 degrees. Oxygen 98% on room air. Appearance: Alert. Oriented X3. No acute distress. Head: Normal external exam. Normocephalic. Eyes: PERRLA. EOMI. Conjunctiva and sclera normal. Eyelids normal. ENT: Pharynx normal. Uvula midline. Moist mucous membranes. No trismus noted. No drooling noted. No muffled voice noted. Neck: Normal inspection. Neck supple. FROM. No adenopathy. No meningeal signs. CVS: Normal heart rate and rhythm. Heart sound normal. No murmurs noted. Pulses normal throughout. Respiratory: No respiratory distress. Painless inspiration. Breath sounds normal. No wheezes/rales/rhonchi noted. Chest nontender. No accessory muscle usage noted or decreased air movement noted. Abdomen: Soft and mild tenderness palpation to the epigastric/right upper quadrant Nondistended. No guarding. No rigidity. Bowel sounds normal in all 4 quadrants. No distention noted. No organomegaly noted. No visible injury noted. No rebound tenderness. Negative Rovsing sign. Negative obturator's sign. Negative psoas sign. Negative Mondragon sign. Back: No CVA tenderness. Full range of motion noted. Skin: Skin warm and dry. Normal skin color. Normal skin turgor. No rashes/lesions/lacerations noted. Extremities: Extremities exhibit normal range of motion. Extremities nontender. Neuro: Oriented X 3. No motor deficit. No sensory deficit. Reflexes normal. Normal steady gait. CN's II-XII intact bilaterally? Course Course Course Narrative: 25-year-old female with a past medical history of gestational diabetes and who had high blood pressure while she was a year ago presenting to the ED with complaints of nausea/diarrhea and lower abdominal cramping since yesterday. She reports intermittent headaches. She is also concerned about her blood glucose level reports that she wants to see if her blood sugars still high due to while she was it was high. She also reports that she wants her blood pressure recheck due to she believes her blood pressure has been running high and she has tried to talk to her doctor about this although her doctor believes that she is too young to have high blood pressure. Labs obtained including an A1c level and all within normal limits. Serum quant negative for . Patient negative for flu and COVID. Abdominal ultrasound revealed increased echogenic of the renal pyramids which is nonspecific but could be seen in cases of Medullary nephrocalcinosis. Otherwise no other acute processes. Therefore at this time will DC home with symptomatic treatment and instructions return if any new or worsening symptoms to follow up with PCP regarding her high blood pressure to possibly start her on blood pressure medication. Patient understands agrees with this plan. MDM - Abdominal Pain Medical Records Attestation: I reviewed the patient's medical records. Lab Data Attestation: I reviewed the patient's lab results. Result diagrams: 06/20/21 14:43 06/20/21 14:43 Labs: Lab Results 06/20/21 06/20/21 06/20/21 Range/Units 14:43 14:43 14:43 WBC 8.3 (4.8-10.8) X10*3/uL RBC 5.41 (4.20-5.50) X10*6/uL Hgb 15.7 (12.0-16.0) g/dl Hct 46.1 (37.0-47.0) % MCV 85.2 (80.0-98.0) fL MCH 29.0 (27.0-33.0) pg MCHC 34.1 (31.0-35.0) g/dl RDW 12.0 (11.0-16.0) % Plt Count 285 (160-400) X10*3/uL MPV 9.5 (9.4-12.3) fL Immature Gran % (Auto) 0.4 (0.0-0.4) % Neut % (Auto) 83.6 H (45-73) % Lymph % (Auto) 10.5 L (20-40) % Pecos % (Auto) 4.6 (2-11) % Eos % (Auto) 0.7 (0-4) % Baso % (Auto) 0.2 (0-2) % Lymph # (Auto) 0.9 L (1.2-4.9) X10*3/uL [place] # (Auto) 0.4 (0.1-1.2) X10*3/uL Eos # (Auto) 0.1 (0.0-0.4) X10*3/uL Baso # (Auto) 0.0 (0.0-0.2) X10*3/uL Abs Immat Gran (auto) 0.03 (0.00-0.03) X10*3/uL Absolute Neuts (auto) 6.9 (2.0-8.3) x10*3/uL Absolute Nucleated RBC 0.000 (0.0-0.012) X10*3/uL Nucleated RBC % (auto) 0.0 (0.0-0.2) /100WBC Sodium 137 (135-145) mmol/L Potassium 4.4 (3.3-5.1) mmol/L Chloride 105 (96-108) mmol/L Carbon Dioxide 26 (22-29) mmol/L Anion Gap 10 L (12-20) BUN 12 (9-16) mg/dL Creatinine 0.77 (0.5-1.4) mg/dL Estim Creat Clear Calc 120.4 Estimated GFR > 60 Random Glucose 92 (60-115) mg/dL Estimat Average Glucose mg/dL Hemoglobin A1c % % Calcium 9.5 (8.4-10.2) mg/dL Magnesium 1.8 (1.6-2.6) mg/dL Total Bilirubin 0.6 (0.0-1.0) mg/dL Direct Bilirubin 0.2 (0.0-0.5) mg/dL AST 20 (5-31) U/L ALT 25 (0-31) U/L Alkaline Phosphatase 74 D (39-117) U/L Total Protein 7.4 (6.5-8.0) g/dL Albumin 4.4 (3.5-5.0) g/dL Lipase 18 (8-78) U/L Beta HCG, Quant < 2 mIU/mL COVID-19 (NACHO) (Negative) COVID-19 Clin Com Influenza Type A (MARQUISE) Negative (Negative) Influenza Type B (MARQUISE) Negative (Negative) Influenza A & B Note See Note 06/20/21 06/20/21 Range/Units 14:43 14:43 WBC (4.8-10.8) X10*3/uL RBC (4.20-5.50) X10*6/uL Hgb (12.0-16.0) g/dl Hct (37.0-47.0) % MCV (80.0-98.0) fL MCH (27.0-33.0) pg MCHC (31.0-35.0) g/dl RDW (11.0-16.0) % Plt Count (160-400) X10*3/uL MPV (9.4-12.3) fL Immature Gran % (Auto) (0.0-0.4) % Neut % (Auto) (45-73) % Lymph % (Auto) (20-40) % Pecos % (Auto) (2-11) % Eos % (Auto) (0-4) % Baso % (Auto) (0-2) % Lymph # (Auto) (1.2-4.9) X10*3/uL [place] # (Auto) (0.1-1.2) X10*3/uL Eos # (Auto) (0.0-0.4) X10*3/uL Baso # (Auto) (0.0-0.2) X10*3/uL Abs Immat Gran (auto) (0.00-0.03) X10*3/uL Absolute Neuts (auto) (2.0-8.3) x10*3/uL Absolute Nucleated RBC (0.0-0.012) X10*3/uL Nucleated RBC % (auto) (0.0-0.2) /100WBC Sodium (135-145) mmol/L Potassium (3.3-5.1) mmol/L Chloride (96-108) mmol/L Carbon Dioxide (22-29) mmol/L Anion Gap (12-20) BUN (9-16) mg/dL Creatinine (0.5-1.4) mg/dL Estim Creat Clear Calc Estimated GFR Random Glucose (60-115) mg/dL Estimat Average Glucose 97 mg/dL Hemoglobin A1c % 5.0 % Calcium (8.4-10.2) mg/dL Magnesium (1.6-2.6) mg/dL Total Bilirubin (0.0-1.0) mg/dL Direct Bilirubin (0.0-0.5) mg/dL AST (5-31) U/L ALT (0-31) U/L Alkaline Phosphatase (39-117) U/L Total Protein (6.5-8.0) g/dL Albumin (3.5-5.0) g/dL Lipase (8-78) U/L Beta HCG, Quant mIU/mL COVID-19 (NACHO) Negative (Negative) COVID-19 Clin Com See Note Influenza Type A (MARQUISE) (Negative) Influenza Type B (MARQUISE) (Negative) Influenza A & B Note Imaging Data abd US limited: Attestation: I personally reviewed and interpreted this imaging study as follows: Radiologist's impression: FINDINGS: PANCREAS: Normal. LIVER: Normal. The liver is normal in size. The liver contour is normal. Parenchymal echogenicity is normal. No focal hepatic lesion. There is no intrahepatic biliary duct dilatation seen. GALLBLADDER: Echogenic sludge. The gallbladder is physiologically distended without evidence of stones, polyps, wall thickening or pericholecystic fluid. COMMON BILE DUCT: Normal in caliber measuring 0.3 cm in diameter. RIGHT KIDNEY: Increased echogenicity of the renal pyramids. No hydronephrosis. No renal calculi or focal parenchymal lesions. The kidney measures 13.4 cm in maximum dimension. FREE FLUID: None. US/US abdomen limited IMPRESSION: Increased echogenicity of the renal pyramids which is nonspecific but could be seen in cases of medullary nephrocalcinosis. Recommend clinical correlation. ? Echogenic gallbladder sludge with no shadowing stones, gallbladder wall thickening nor pericholecystic free fluid. Discharge Plan Discharge Clinical Impression: High blood pressure, Acute viral syndrome Patient Disposition: Home, Self-Care Instructions: Heart Healthy Diet (ED), How to Take a Blood Pressure (ED), Viral Syndrome (ED) Prescriptions: New ondansetron 4 mg tablet,disintegrating 4 mg PO Q6-8H PRN (Reason: nausea and vomiting) Qty: 14 0RF dicyclomine 20 mg tablet 20 mg PO TID Qty: 14 0RF No Action norethindrone (contraceptive) 0.35 mg tablet 0.35 mg PO DAILY Qty: 84 4RF Referrals: [facility] [Primary Care Provider] - Print Language: Albanian
[2021-06-20 16:53] LABS: HCG Quantitative < 2 mIU/mL
[2021-06-20 17:03] LABS: Estimated Average Glucose 97 mg/dL
[2021-06-20 17:07] LABS: Alanine Aminotransferase 25 U/L (0-31); Albumin Level 4.4 g/dL (3.5-5.0); Alkaline Phosphatase 74 U/L (39-117); Aspartate Amino Transferase 20 U/L (5-31); Bilirubin Direct 0.2 mg/dL (0.0-0.5); Bilirubin Total 0.6 mg/dL (0.0-1.0); Lipase 18 U/L (8-78); Magnesium 1.8 mg/dL (1.6-2.6); Total Protein 7.4 g/dL (6.5-8.0)
[2021-06-20 18:36] LABS: Appearance Urine CLEAR; Color Urine YELLOW; Glucose Urine UA NEG (NEG); Leukocyte Esterase Urine NEG (NEG); Nitrite Urine NEG (NEG); Urine Blood NEG (NEG); Urine Ketones NEG (NEG); Urine Protein NEG (NEG-TRACE)
[2021-06-20 18:50] VITALS: BP 146/90; PULSE 109; RESP 18; TEMP 37.2; O2SAT 98
== END 2021-06-20 19:02 | disposition home or self-care (01) ==
PROVIDERS: Physician Assistant Medical; Emergency Provider Emergency Medicine Emergency Medical Services
DX: B34.9 Viral infection, unspecified (principal); R10.11 Right upper quadrant pain; R51.9 Headache, unspecified; R11.2 Nausea with vomiting, unspecified; Z20.822 Contact with and (suspected) exposure to COVID-19; Z79.899 Other long term (current) drug therapy
CPT/HCPCS: 76705; 80048; 80076; 81003; 83036; 83690; 83735; 84702; 85025; 87502; 87635; 99283; 99284

== ENCOUNTER → 2021-07-01 10:40 | Outpatient (BNVA) | payer MEDICAID, SELFPAY | PROVIDERS: Visit Provider Advanced Practice Midwife | DX: Z13.89 Encounter for screening for other disorder (principal) ==

== ENCOUNTER 2022-02-14 14:55 | Emergency (ER) | payer MEDICAID, SELFPAY ==
--- NOTE | 2022-02-14 15:48 | ED_ITS ---
HPI - URI/Sore Throat General Chief Complaint: Upper Respiratory Symptoms Stated Complaint: Flu symptoms Time Seen by Provider: 02/14/22 18:26 Source: patient Mode of arrival: ambulatory Limitations: no limitations History of Present Illness HPI Narrative: 26yoF presenting to the ER with complaints of generalized fatigue/malaise, nasal congestion/rhinorrhea, sore throat, productive cough, chest tightness, body ac hes which started on Tuesday worse today. Reports her sister recently tested positive for the flu. No other sick contacts that she is aware of. No recent travel. She denies any other symptoms complaints or concerns at this time. MD elicited complaint: cough, sore throat, rhinorrhea and nasal congestion Onset (ago): day(s) (2) Consistency: constant and progressively worsening Severity: mild Description of mucous: clear, watery and yellow Able to tolerate fluids by mouth: Yes Exacerbating factors: swallowing Relieving factors: nothing Context: sick contacts (Her siblings recently tested positive for the flu) Associated symptoms: chills, myalgias, headache, rhinorrhea, nasal congestion, sore throat and cough Treatments prior to arrival: none Related Data Previous Rx's Medication Instructions Recorded norethindrone (contraceptive) 0.35 0.35 mg PO DAILY #84 tabs 04/03/21 mg tablet albuterol sulfate 90 mcg/actuation 1 inh inhalation QID PRN shortness 02/14/22 aerosol inhaler of breath or wheezing #8.5 grams azithromycin 250 mg tablet See Rx Instructions PO .COMPLEX #6 02/14/22 tabs codeine 10 mg-guaifenesin 100 mg/5 5 ml PO Q6H PRN cold symptoms #120 02/14/22 mL oral liquid (Guaifenesin AC) mL prednisone 20 mg tablet 40 mg PO DAILY inflammation 5 days 02/14/22 #10 tabs Allergies Allergy/AdvReac Type Severity Reaction Status Date / Time sulfamethoxazole Allergy Intermediate RASH Verified 07/01/21 10:41 [From BACTRIM] trimethoprim [From BACTRIM] Allergy Intermediate RASH Verified 07/01/21 10:41 Review of Systems Review of Systems: Constitutional : + chills/fatigue/malaise, No Weight loss, No Night Sweats ENT/Mouth : No Hearing loss, No Ear Pain, + Nasal Congestion, No Sinus Pain, No Hoarseness, + sore throat, + Rhinorrhea, No Swallowing Difficulty Eyes: No Eye Pain, No Swelling, No Redness, No Foreign Body, No Discharge, No Vision Changes Cardiovascular : No Chest Pain, No SOB, No Dyspnea on Exertion, No Orthopnea, No Edema, No Palpitations Respiratory : + Cough, No Sputum, No Wheezing, No Smoke Exposure, No Dyspnea Gastrointestinal : No Nausea, No Vomiting, No Diarrhea, No Constipation, No abdominal Pain, No Hematochezia, No Melena Genitourinary : no irregular bleeding, No Dysuria, No Urinary Frequency, No Hematuria, No Urinary Incontinence, No Urgency, No Flank Pain, No Urinary Flow Changes, No Hesitancy Musculoskeletal : No joint pain, + Myalgias, No Joint Swelling Skin : No Skin Lesions, No rash Neuro : No Weakness, No Numbness, No Paresthesias, No Loss of Consciousness, No Dizziness, No Headache Psych : No Anxiety/Panic, No Depression, No SI/HI/AH/VH, No Social Issues, Heme/Lymph: No Bruising, No Bleeding,No Lymphadenopathy Endocrine : No Polyuria, No Polydipsia, No Temperature Intolerance Yes all other systems are reviewed and are negative [facility] Past Medical History Attestation statement: The following information was validated with the patient. Source: old records reviewed and nursing notes reviewed Medical History Fall (on) (from) other stairs and steps, initial encounter Obesity (BMI 30-39.9) Family History Family History Mother HTN (hypertension) Maternal Grandmother Epilepsy Maternal Aunt Diabetes Brother Coloboma, congenital heart disease, choanal atresia, growth retardation, genital hypoplasia, ear and hearing anomaly (CHARGE) syndrome Sister Autism disorder Social History Social History Household Members: Significant Other and Children Housing: House Alcohol intake: never Patient Tobacco Use Status: Never used Tobacco Special misty needs: No Agree to transfusion: Yes Advance Directives: No Advance Directives Information Provided: No Physical Exam Vital Signs: Vital Signs: Last Vital Signs Temp 97.9 F 02/14/22 15:50 Pulse 73 02/14/22 15:50 Resp 18 02/14/22 15:50 Pulse Ox 100 02/14/22 15:50 O2 Del Method 02/14/22 15:50 BMI result Body Mass Index 36.3 Vital signs reviewed. Blood pressure normal. Pulse normal. Respiration normal. Oxygen normal. Temperature normal. Appearance: Alert. Oriented X3. No acute distress. Head: Normal external exam. Normocephalic. Atraumatic. Eyes: PERRLA. EOMI. Conjunctiva and sclera normal. Eyelids normal. ENT: EAC normal. TM's Normal. Pharynx normal. Uvula midline. Moist mucous me mbranes. No lesions/ulcerations or masses noted on the tongue. Normal voice. No trismus noted. No drooling noted. No muffled voice noted. Neck: Normal inspection. Neck supple. FROM. No adenopathy. Thyroid Normal. No meningeal signs. CVS: Normal heart rate and rhythm. Heart sound normal. Pulses normal throughout. No murmurs/rales/gallops. Respiratory: No respiratory distress. Painless inspiration. Breath sounds normal. No wheezes/rales/rhonchi noted. Chest nontender. No accessory muscle usage noted or decreased air movement noted. Abdomen: Soft and nontender. Back: Full range of motion noted. Nontender. Skin: Skin warm and dry. Normal skin color. Normal skin turgor. No rashes/lesions/lacerations noted. Extremities: Extremities exhibit normal range of motion and nontender. Neuro: Oriented X 3. No motor deficit. No sensory deficit. Reflexes normal. Normal steady gait. No focal neuro deficits noted. CN's II-XII intact bilaterally? Vascular: + radial pulses. Normal cap refill. No cyanosis noted to upper extremity nails Course Course Course Narrative: RMKady- 15:50PM - 26yoF presenting to the ER with complaints of generalized fatigue/malaise, nasal congestion/rhinorrhea, sore throat, productive cough, chest tightness, body aches which started on Tuesday worse today. Reports her sister recently tested positive for the flu. No other sick contacts that she is aware of. No recent travel. She denies any other symptoms complaints or concerns at this time. Plan: Will obtain a COVID/RSV/flu swab and rapid strep. Patient will be sent back to the waiting room to be evaluated in [facility] [place]. Reevaluation(s) Reevaluation #1: COVID/RSV/flu swab and strep negative. Will DC home with symptomatic treatment instructions return if any new or worsening symptoms follow up with primary care provider. Patient understands agrees with this plan. Time: 20:02 Medical Decision Making Lab Data MDM Lab Attestation statement: I reviewed the patient's lab results. Labs: Lab Results 02/14/22 02/14/22 Range/Units 16:47 16:47 Influenza Type A (PCR) NEGATIVE (Negative) Influenza Type B (PCR) NEGATIVE (Negative) RSV RNA Qual (PCR) NEGATIVE (Negative) SARS-CoV-2 RNA (RT-PCR) NEGATIVE (Negative) S. pyogenes GrpA MARQUISE Negative (Negative) Discharge Plan Discharge Clinical Impression: Acute viral syndrome Patient Disposition: Home, Self-Care Instructions: Viral Syndrome (ED) Prescriptions: New azithromycin 250 mg tablet See Rx Instructions .ROUTE .COMPLEX Qty: 6 0RF Rx Instructions: For 250 mg dose pack: take 500 mg today (day 1), then 250 mg for 4 days (days 2-5) prednisone 20 mg tablet 40 mg PO DAILY 5 Days Qty: 10 0RF codeine-guaifenesin [Guaifenesin AC] 10-100 mg/5 mL liquid 5 ml PO Q6H PRN (Reason: cold symptoms) Qty: 120 0RF albuterol sulfate 90 mcg/actuation HFA aerosol inhaler 1 inh inhalation QID PRN (Reason: shortness of breath or wheezing) Qty: 8.5 0RF No Action norethindrone (contraceptive) 0.35 mg tablet 0.35 mg PO DAILY Qty: 84 4RF Referrals: Physician,Unknown J [Primary Care Provider] - Stand Alone Forms: Work/School Release Interventions: ED Discharge Assessment Last Done: 02/14/22 18:28 Discharge Date/Time: 02/14/22 18:31
[2022-02-14 15:50] VITALS: PULSE 73; RESP 18; TEMP 36.6; O2SAT 100; BMI 36.3
[2022-02-14 17:01] LABS: Strep A Nucleic Acid Negative (Negative)
[2022-02-14 17:32] LABS: Influenza A PCR NEGATIVE (Negative); Influenza B PCR NEGATIVE (Negative); Resp Syncy Virus RNA Qual PCR NEGATIVE (Negative); SARS COV2 PCR INHOUSE NEGATIVE (Negative)
== END 2022-02-14 18:31 | disposition home or self-care (01) ==
LOC: HO.ED 18:30
PROVIDERS: Physician Assistant Medical; Emergency Provider Emergency Medicine
DX: B34.9 Viral infection, unspecified (principal); M79.10 Myalgia, unspecified site; R51.9 Headache, unspecified; R05.9 Cough, unspecified; Z20.822 Contact with and (suspected) exposure to COVID-19
CPT/HCPCS: 0241U; 36415; 87651; 99282; 99283

== ENCOUNTER 2022-07-02 06:07 | Emergency (ER) | payer MEDICAID, SELFPAY ==
[2022-07-02 06:19] VITALS: BP 140/94; PULSE 86; RESP 16; TEMP 36.7; O2SAT 98; BMI 33.8
--- NOTE | 2022-07-02 07:48 | ED_ITS ---
HPI - Anxiety General Chief Complaint: Anxiety Stated Complaint: Anxiety Time Seen by Provider: 07/02/22 07:00 Source: patient Mode of arrival: ambulatory Limitations: no limitations History of Present Illness HPI narrative: This is a very pleasant 26 years old female with no significant past medical history presented to the emergency department complaining of anxiety attack, she denies SI HI. She denies any other systemic symptoms such fever vomiting MD complaint: anxiety Onset (ago): hour(s) (1) Severity: mild Quality: improving History of similar episodes: No Provoking factors: none known Relieving factors: nothing Exacerbating factors: nothing Related Data Previous Rx's Medication Instructions Recorded albuterol sulfate 90 mcg/actuation 1 inh inhalation QID PRN shortness 02/14/22 aerosol inhaler of breath or wheezing #8.5 grams azithromycin 250 mg tablet See Rx Instructions PO .COMPLEX #6 02/14/22 tabs codeine 10 mg-guaifenesin 100 mg/5 5 ml PO Q6H PRN cold symptoms #120 02/14/22 mL oral liquid (Guaifenesin AC) mL prednisone 20 mg tablet 40 mg PO DAILY inflammation 5 days 02/14/22 #10 tabs norethindrone (contraceptive) 0.35 0.35 mg PO DAILY #84 tabs 04/30/22 mg tablet Allergies Allergy/AdvReac Type Severity Reaction Status Date / Time sulfamethoxazole Allergy Intermediate RASH Verified 07/01/21 10:41 [From BACTRIM] trimethoprim [From BACTRIM] Allergy Intermediate RASH Verified 07/01/21 10:41 Review of Systems Constitutional: Constitutional: Reports no additional constitutional complaints Cardiovascular: Cardiovascular: Denies chest pain and Denies dyspnea Respiratory: Respiratory: Denies dyspnea Neurologic: Reports as per HPI [facility] Past Medical History Medical History Fall (on) (from) other stairs and steps, initial encounter Obesity (BMI 30-39.9) Family History Family History Mother HTN (hypertension) Maternal Grandmother Epilepsy Maternal Aunt Diabetes Brother Coloboma, congenital heart disease, choanal atresia, growth retardation, genital hypoplasia, ear and hearing anomaly (CHARGE) syndrome Sister Autism disorder Social History Social History Household Members: Significant Other and Children Housing: House Alcohol intake: never Patient Tobacco Use Status: Never used Tobacco Smoked in Last 30 Days: No Use of substances other than those prescribed or required for medical reasons: No Special misty needs: No Agree to transfusion: Yes Advance Directives: No Advance Directives Information Provided: No Patient : No Physical Exam Vital Signs: Vital Signs: Last Vital Signs Temp 98.0 F 07/02/22 06:19 Pulse 86 07/02/22 06:19 Resp 16 07/02/22 06:19 BP 140/94 H 07/02/22 06:19 Pulse Ox 98 07/02/22 06:19 O2 Del Method Room Air 07/02/22 06:19 BMI result Body Mass Index 33.8 Const: General: cooperative, healthy appearing, comfortable, no acute distress, well developed, alert and awake Nutritional Appearance: well nourished Orientation/consciousness: patient oriented x3 Limitations: no limitations HEENT: Head: Yes normal to inspection Face and sinus: Yes normal facial exam Mouth: Normal oral and palatal mucosa present Neck: Neck: Yes normal visual inspection and Yes full ROM Chest: Chest palpation & inspection: normal inspection of the chest Resp: Effort & Inspection: normal respiratory effort Auscultation: clear to auscultation bilaterally Cardio: Jugular venous distension: no JVD Rate: regular rate Rhythm: regular rhythm GI: Palpation (GI): Soft to palpation, not firm, nontender and no guarding Neuro: General: patient oriented x3 Cranial nerves: Yes CN's II-XII intact bilaterally Cognition (Neuro): normal cognition Motor exam (neuro): 5/5 motor strength present throughout Psych: Appearance: grossly normal and well kempt Mental Status: mental status grossly normal Speech and movement: Clear speech present Affect: Anxious affect present Attitude: cooperative Thought process: Normal thought process present Thought content: Normal thought content present Insight: Good insight present (Psych) Judgement: Good judgement present (Psych) Course Reevaluation(s) Reevaluation #1: mihir much better Time: 08:53 Medications Administered Discontinued Medications Generic Name Dose Route Start Last Admin Trade Name Freq PRN Reason Stop Dose Admin Lorazepam 0.5 mg 07/02/22 07:47 07/02/22 07:54 Lorazepam 0.5 Mg Tablet PO 07/02/22 07:48 0.5 mg ONCE ONE Administration Medical Decision Making Medical Decision Making [facility] Narrative: pt presented with anxiety no Si no HI ,will try small dose of lorazepam .5 mg Differential Diagnosis Differential Diagnoses: The differential diagnosis associated with the presentation includes anxiety/depression/panic attack Admission/Observation Consideration of admission/observation: Escalation of care including admission/observation considered I consider psych eval,not done because no SI no HI Prescription Management I considered prescription management with: Other (benzo) no prescription for benzo given because young and at risk of addiction Discharge Plan Discharge Clinical Impression: Anxiety Patient Disposition: Still a Patient Instructions: Anxiety (ED) Additional Instructions: Follow-up with your primary care physician return if you worse, any concern. Prescriptions: No Action norethindrone (contraceptive) 0.35 mg tablet 0.35 mg PO DAILY Qty: 84 0RF azithromycin 250 mg tablet See Rx Instructions .ROUTE .COMPLEX Qty: 6 0RF Rx Instructions: For 250 mg dose pack: take 500 mg today (day 1), then 250 mg for 4 days (days 2-5) prednisone 20 mg tablet 40 mg PO DAILY 5 Days Qty: 10 0RF codeine-guaifenesin [Guaifenesin AC] 10-100 mg/5 mL liquid 5 ml PO Q6H PRN (Reason: cold symptoms) Qty: 120 0RF albuterol sulfate 90 mcg/actuation HFA aerosol inhaler 1 inh inhalation QID PRN (Reason: shortness of breath or wheezing) Qty: 8.5 0RF
[2022-07-02] MEDS: LORazepam 0.5 MG TABLET PO (07:54)
[2022-07-02 09:01] VITALS: BP 135/88; PULSE 76; RESP 16; O2SAT 100
[2022-07-02] MEDS: Ondansetron ODT 4 MG TAB.RAPDIS TRANSLINGU (09:02)
--- NOTE | 2022-07-02 09:12 | PC.NURSE ---
Dr Canales updated patient on plan of care. Plan is for dc home with f/u with PCP. Pt reports that she is feeling better and is agreeable to the plan.
== END 2022-07-02 09:14 | disposition home or self-care (01) ==
PROVIDERS: Emergency Provider Emergency Medicine
DX: F41.1 Generalized anxiety disorder (principal); F43.0 Acute stress reaction; R50.9 Fever, unspecified; Z79.899 Other long term (current) drug therapy
CPT/HCPCS: 99283; 99284

== ENCOUNTER 2022-09-02 10:28 | Outpatient (REF) | payer MEDICAID, SELFPAY | END 2022-09-02 10:29 | disposition home or self-care (01) | LOC: HO.LNP 10:28 | PROVIDERS: PCP Registered Nurse; Visit Provider Advanced Practice Midwife | DX: Z01.419 Encounter for gynecological examination (general) (routine) without abnormal findings (principal); Z01.30 Encounter for examination of blood pressure without abnormal findings; Z79.3 Long term (current) use of hormonal contraceptives | CPT/HCPCS: 0353U; 81025; 87480; 87510; 87660; 88142; 99212 ==

== ENCOUNTER 2022-12-02 23:30 | Emergency (ER) | payer OTHER, SELFPAY ==
[2022-12-02 23:34] VITALS: BP 148/90; PULSE 68; RESP 18; TEMP 36.5; O2SAT 96; BMI 40.7
[2022-12-03 00:48] VITALS: BP 147/83; PULSE 84; TEMP 36.6; O2SAT 98
--- NOTE | 2022-12-03 00:57 | ED.CHESTPAIN ---
HPI - Chest Pain General Chief Complaint: Chest Pain Stated Complaint: Chest pain Time Seen by Provider: 12/03/22 00:34 Source: patient, RN notes reviewed and old records reviewed Mode of arrival: ambulatory Limitations: no limitations History of Present Illness HPI narrative: 27-year-old female who denies any past medical history presents for evaluation of left-sided chest pain. Patient reports that her symptoms started about 12 hours prior to my evaluation She states that she was not doing anything when her pain started Her pain radiates to her left shoulder and causes ?numbness and tingling. She reports some numbness and tingling on the right side as well and is concerned she may have ?carpal tunnel. ? Denies any history of cardiac disease That is any history of hypertension, hyperlipidemia, coronary artery disease Related Data Home Medications Medication Instructions Recorded Confirmed blood pressure test kit-large #1 ea 09/02/22 escitalopram oxalate 10 mg tablet 10 mg PO QAM 09/02/22 hydroxyzine pamoate 50 mg capsule 50 mg PO Q8H PRN anxiety 09/02/22 Previous Rx's Medication Instructions Recorded norethindrone (contraceptive) 0.35 0.35 mg PO DAILY #84 tabs 09/02/22 mg tablet metronidazole 500 mg tablet 500 mg PO BID 7 days #14 tabs 09/06/22 metronidazole 500 mg tablet 500 mg PO BID 7 days #14 tabs 11/11/22 Allergies Allergy/AdvReac Type Severity Reaction Status Date / Time sulfamethoxazole Allergy Intermediate RASH Verified 12/02/22 23:37 [From BACTRIM] trimethoprim [From BACTRIM] Allergy Intermediate RASH Verified 12/02/22 23:37 Review of Systems Constitutional: Constitutional: Denies chills and Denies fever(s) Eyes: Eyes: Denies blurry vision ENT: Denies sore throat Cardiovascular: Cardiovascular: Reports chest pain, Denies rapid heart rate and Denies dyspnea Respiratory: Respiratory: Denies cough and Denies dyspnea Gastrointestinal: Gastrointestinal: Denies abdominal pain, Denies nausea and Denies vomiting Musculoskeletal: Musculoskeletal: Denies back pain, Reports radiating pain into limb and Reports tingling Neurologic: Denies focal weakness, Reports tingling and Reports paresthesias PMFSH Past Medical History Medical History Fall (on) (from) other stairs and steps, initial encounter Obesity (BMI 30-39.9) Family History Family History Mother HTN (hypertension) Maternal Grandmother Epilepsy Maternal Aunt Diabetes Brother Coloboma, congenital heart disease, choanal atresia, growth retardation, genital hypoplasia, ear and hearing anomaly (CHARGE) syndrome Sister Autism disorder Social History Social History Household Members: Significant Other and Children Housing: House Alcohol intake: never Patient Tobacco Use Status: Never used Tobacco Special misty needs: No Agree to transfusion: Yes Advance Directives: No Advance Directives Information Provided: Yes Physical Exam Vital Signs: Vital Signs: Last Vital Signs Temp 97.9 F 12/03/22 00:48 Pulse 84 12/03/22 00:48 Resp 18 12/02/22 23:34 BP 147/83 H 12/03/22 00:48 Pulse Ox 98 12/03/22 00:48 O2 Del Method Room Air 12/03/22 00:48 BMI result Body Mass Index 40.7 Const: General: healthy appearing, comfortable, no acute distress, alert and awake Nutritional Appearance: well nourished Orientation/consciousness: patient oriented x3 HEENT: Head: Yes normocephalic and Yes atraumatic Eyes: Eyelids: Yes eyelids normal Conjunctivae: conjunctivae normal Sclerae: sclerae normal Corneas: corneas normal Pupils: Equal, round and reactive pupils present EOM: EOMs intact bilaterally Neck: Neck: Yes full ROM Chest: Chest palpation & inspection: normal inspection of the chest, normal palpation of entire chest wall and no crepitus Resp: Effort & Inspection: normal respiratory effort, able to speak in complete sentences and not labored Cardio: Rate: regular rate Rhythm: regular rhythm Skin: General skin exam: elasticity normal Neuro: General: patient oriented x3 Cranial nerves: Yes Equal, round and reactive pupils present and Yes Bilaterally intact EOM present Cognition (Neuro): normal cognition Course Reevaluation(s) Reevaluation #1: Labs reassuring, troponin negative, patient stable for discharge Time: 01:25 Medical Decision Making Medical Decision Making MDM Narrative: 27-year-old female with no significant past medical history presents for evaluation of chest pain that is been constant for the last 12 hours. Her pain is not reproducible on exam. Plan for EKG and chest x-ray, labs. Low suspicion for ACS that she has no risk factors and is only 27 years old. She is PERC negative. Most likely cause is chest wall pain, GERD, costochondritis or anxiety Differential Diagnosis Differential Diagnoses: The differential diagnosis associated with the presentation includes Chest pain ACS Costochondritis Anxiety GERD Lab Data MDM Lab Attestation statement: I reviewed the patient's lab results. No leukocytosis, no significant anemia. Normal platelet count. No electrolyte abnormalities. Troponin less than 2.7 12/03/22 00:01 12/03/22 00:01 Labs: Lab Results 12/03/22 Range/Units 00:01 WBC 10.8 (4.8-10.8) X10*3/uL RBC 4.95 (4.20-5.50) X10*6/uL Hgb 14.4 (12.0-16.0) g/dl Hct 42.4 (37.0-47.0) % MCV 85.7 (80.0-98.0) fL MCH 29.1 (27.0-33.0) pg MCHC 34.0 (31.0-35.0) g/dl RDW 12.7 (11.0-16.0) % Plt Count 310 (160-400) X10*3/uL MPV 9.4 (9.4-12.3) fL Immature Gran % (Auto) 0.2 (0.0-0.4) % Neut % (Auto) 53.5 (45-73) % Lymph % (Auto) 38.1 (20-40) % [place] % (Auto) 5.5 (2-11) % Eos % (Auto) 2.0 (0-4) % Baso % (Auto) 0.7 (0-2) % Lymph # (Auto) 4.1 (1.2-4.9) X10*3/uL [place] # (Auto) 0.6 (0.1-1.2) X10*3/uL Eos # (Auto) 0.2 (0.0-0.4) X10*3/uL Baso # (Auto) 0.1 (0.0-0.2) X10*3/uL Abs Immat Gran (auto) 0.02 (0.00-0.03) X10*3/uL Absolute Neuts (auto) 5.8 (2.0-8.3) x10*3/uL Absolute Nucleated RBC 0.000 (0.0-0.012) X10*3/uL Nucleated RBC % (auto) 0.0 (0.0-0.2) /100WBC Sodium 140 (135-145) mmol/L Potassium 4.1 (3.3-5.1) mmol/L Chloride 105 (96-108) mmol/L Carbon Dioxide 22 (22-29) mmol/L Anion Gap 17 (12-20) BUN 17 H (9-16) mg/dL Creatinine 0.84 (0.5-1.4) mg/dL Estim Creat Clear Calc 117.2 Estimated GFR > 60 Random Glucose 106 (60-115) mg/dL Calcium 9.9 (8.4-10.2) mg/dL Total Bilirubin 0.3 (0.0-1.0) mg/dL Direct Bilirubin 0.1 (0.0-0.5) mg/dL AST 24 (5-31) U/L ALT 30 (0-31) U/L Alkaline Phosphatase 83 (39-117) U/L Troponin I High Sens < 2.7 (<3.5-17.0) ng/L Total Protein 7.2 (6.5-8.0) g/dL Albumin 4.2 (3.5-5.0) g/dL Independent Interpretation I performed an independent interpretation of an: EKG (A normal sinus rhythm with rate of 80 beats minute. No ectopy, no ischemic changes) Discharge Plan Discharge Clinical Impression: Atypical chest pain Patient Disposition: Home, Self-Care Instructions: Chest Pain (ED) Additional Instructions: Your workup in the emergency department today was reassuring. This includes your EKG, chest x-ray, and your blood work Use ibuprofen or Tylenol for pain Return for new or worsening symptoms Prescriptions: No Action metronidazole 500 mg tablet 500 mg PO BID 7 Days Qty: 14 0RF Rx Instructions: Take with food, Avoid alcohol and vinegar products metronidazole 500 mg tablet 500 mg PO BID 7 Days Qty: 14 0RF Rx Instructions: Take with food, Avoid alcohol and vinegar products escitalopram oxalate 10 mg tablet 10 mg PO QAM (DME) blood pressure test kit-large Kit See Rx Instructions .ROUTE BID Qty: 1 Rx Instructions: As directed hydroxyzine pamoate 50 mg capsule 50 mg PO Q8H PRN (Reason: anxiety) norethindrone (contraceptive) 0.35 mg tablet 0.35 mg PO DAILY Qty: 84 3RF
[2022-12-03 01:03] LABS: Alanine Aminotransferase 30 U/L (0-31); Albumin Level 4.2 g/dL (3.5-5.0); Alkaline Phosphatase 83 U/L (39-117); Anion Gap 17 (12-20); Aspartate Amino Transferase 24 U/L (5-31); Bilirubin Direct 0.1 mg/dL (0.0-0.5); Bilirubin Total 0.3 mg/dL (0.0-1.0); Blood Urea Nitrogen 17 mg/dL (9-16); Calcium 9.9 mg/dL (8.4-10.2); Carbon Dioxide 22 mmol/L (22-29); Chloride 105 mmol/L (96-108); Creatinine Clr Calc Pharmacy 117.2; Estimated Glomerular Filt Rate > 60; Glucose Random 106 mg/dL (60-115); Potassium 4.1 mmol/L (3.3-5.1); Sodium 140 mmol/L (135-145); Total Protein 7.2 g/dL (6.5-8.0)
[2022-12-03 01:47] VITALS: BP 149/80; PULSE 67; RESP 18; TEMP 36.7; O2SAT 100
== END 2022-12-03 01:48 | disposition home or self-care (01) ==
PROVIDERS: Emergency Provider Internal Medicine
DX: R07.89 Other chest pain (principal); E66.9 Obesity, unspecified; Z68.41 Body mass index [BMI] 40.0-44.9, adult; Z79.899 Other long term (current) drug therapy
CPT/HCPCS: 36415; 71045; 80048; 80076; 84484; 85025; 93005; 99283; 99284

== ENCOUNTER 2023-01-19 14:32 | Outpatient (AMB) | payer OTHER, SELFPAY ==
[2023-01-19 14:46] VITALS: BP 130/86; BMI 40.5
--- NOTE | 2023-01-19 14:46 | MHC.OFFVISPN ---
Intake Vital Signs 01/19/23 14:46 Height 5 ft 3 in Weight 228 lb 6 oz BMI 40.5 BP 130/86 Blood Pressure Location Lt brachial Intake Visit Reasons: possible BV Intake Note: vaginal itching with bad odor. Mail Superintendent Required: No Information Interpreted: non-clinical & clinical Allergies sulfamethoxazole [From BACTRIM] Allergy (Intermediate, Verified 01/19/23 14:50) RASH trimethoprim [From BACTRIM] Allergy (Intermediate, Verified 01/19/23 14:50) RASH Medication List - Last Reconciled 01/19/23 by Kathy Berry LPN blood pressure test kit-large As directed norethindrone (contraceptive) 0.35 mg PO DAILY Is last menstrual period known: Yes Last menstrual period: 01/12/23 Post menopausal: No Patient : No Do you need a note to return to daycare/school/sports/work: No PFSH Medical History Fall (on) (from) other stairs and steps, initial encounter Obesity (BMI 30-39.9) Family History Mother HTN (hypertension) Maternal Grandmother Epilepsy Maternal Aunt Diabetes Brother Coloboma, congenital heart disease, choanal atresia, growth retardation, genital hypoplasia, ear and hearing anomaly (CHARGE) syndrome Sister Autism disorder Household Members: Significant Other and Children Both parents involved: Yes Housing: House Alcohol intake: never Patient Tobacco Use Status: Never used Tobacco Special misty needs: No Agree to transfusion: Yes Patient : No Female Reproductive History Menstrual Age of Menarche: 12 Duration of menses: 6-7 days Date of last menstrual period: 01/12/23 control method: pills Total pregnancies: 2 Full term: 2 Premature: 0 Number of Living Children: 2 Date of last pap smear: 09/07/22 History of abnormal pap smear: No History of STI: No History History 2 Elective abortions 0 Para 1 Spontaneous abortions 0 Hx # Term Pregnancies 2 Ectopic pregnancies 0 Hx # Pregnancies 0 Multiple births 0 Past Pregnancies Del. Date GA/Weeks Outcome Route Wt Inf Gender Labor Lizbeth Anesthesia Location Provider Complicate 06/17/17 39 live - full term vaginal delivery 6 lb Female 9 hours epidural [facility] none Questionnaire History History : 2 Exam External Female Exam: normal external appearance and normal appearance of the urethra Urethra: normal appearance of the urethra Speculum exam - vagina: normal appearance of the vagina and normal discharge Speculum Exam - Cervix: normal appearance of the cervix and Cervical os closed Assessment & Plan Assessment & Plan (1) Screen for sexually transmitted diseases: Code(s): Z11.3 - Encounter for screening for infections with a predominantly sexual mode of transmission Category: Medical (2) Bacterial vaginosis: Code(s): N76.0 - Acute vaginitis; B96.89 - Other specified bacterial agents as the cause of diseases classified elsewhere Category: Medical Plan ---Discussed the current research around the phenomena of bacterial vaginosis, and the many factors involved in the increase and change in the prevalence of certain bacteria in the vagina, that contribute to the clingy discharge, the fishy malodor, and the discomfort, that many women experience very frequently in their lives. Discussed the many factors that can promote it, and current thinking about best options for treatment of both the a 1 time episode, or frequently occurring episodes. Discussed the role of partner condom use. Discussed that previously, treatment was recommended for both partners, but is not currently recommended today in 2020. Discussed the testing involved. Discussed treatment options including Flagyl, metronidazole gel, boric acid capsules and others I highly. recommend the patient stop washing her vagina with soap 6 or 7 times. She thinks that she may have OCD and she cant stop. I also discussed condom use if the fishy odor is always after sex but really and truly stopping the obsessive cleansing with soap is what is necessary. Coding Diagnoses Screen for sexually transmitted diseases Z11.3 Bacterial vaginosis N76.0; B96.89
[2023-01-19 15:21] VITALS: BMI 40.5
--- NOTE | 2023-01-19 15:21 | MHC.OFFVIS ---
Intake Vital Signs 01/19/23 14:46 01/19/23 15:21 Height 5 ft 3 in Weight 228 lb 6 oz BMI 40.5 40.5 BP 130/86 Blood Pressure Location Lt brachial Intake Visit Reasons: possible BV Allergies sulfamethoxazole [From BACTRIM] Allergy (Intermediate, Verified 01/19/23 14:50) RASH trimethoprim [From BACTRIM] Allergy (Intermediate, Verified 01/19/23 14:50) RASH Medication List - Last Reconciled 01/19/23 by Kathy Berry LPN blood pressure test kit-large As directed norethindrone (contraceptive) 0.35 mg PO DAILY Is last menstrual period known: Yes (It started on the and then stopped and started and she still is spotti) HPI possible BV HPI Details Patient is here because she believes she has BV she admits to washing herself vigorously in her vaginal area 6-7 times with soap and she thinks it is her OCD. [facility] Medical History Fall (on) (from) other stairs and steps, initial encounter Obesity (BMI 30-39.9) Family History Mother HTN (hypertension) Maternal Grandmother Epilepsy Maternal Aunt Diabetes Brother Coloboma, congenital heart disease, choanal atresia, growth retardation, genital hypoplasia, ear and hearing anomaly (CHARGE) syndrome Sister Autism disorder Household Members: Significant Other and Children Both parents involved: Yes Housing: House Alcohol intake: never Patient Tobacco Use Status: Never used Tobacco Special misty needs: No Agree to transfusion: Yes Female Reproductive History Menstrual Age of Menarche: 12 Physical Exam Vital Signs: Last Vital Signs BP 130/86 01/19/23 14:46 BMI result Body Mass Index 40.5 External Female Exam: normal external appearance and normal appearance of the urethra Speculum Exam - Vagina: normal appearance of the vagina and normal vaginal discharge Speculum Exam - Cervix: normal appearance of the cervix and Cervical os closed Assessment & Plan Assessment & Plan (1) Screen for sexually transmitted diseases: Code(s): Z11.3 - Encounter for screening for infections with a predominantly sexual mode of transmission (2) Bacterial vaginosis: Code(s): N76.0 - Acute vaginitis; B96.89 - Other specified bacterial agents as the cause of diseases classified elsewhere (3) control counseling: Code(s): Z30.09 - Encounter for other general counseling and advice on contraception Plan ---Discussed the current research around the phenomena of bacterial vaginosis, and the many factors involved in the increase and change in the prevalence of certain bacteria in the vagina, that contribute to the clingy discharge, the fishy malodor, and the discomfort, that many women experience very frequently in their lives. Discussed the many factors that can promote it, and current thinking about best options for treatment of both the a 1 time episode, or frequently occurring episodes. Discussed the role of partner condom use. Discussed that previously, treatment was recommended for both partners, but is not currently recommended today in 2020. Discussed the testing involved. Discussed treatment options including Flagyl, metronidazole gel, boric acid capsules and others. And that she stop washing her vagina is obsessively 6-7 times with soap and that splashing with plain water is okay. It is okay to wash her rectal area with soap. Also if this fishy odor is always after sex she should use condoms I know she does not like them but that may be the only option she has. she Might need to make some choices. Lengthy discussion about ways to address this issue today she has the tail end of menses. She missed 3 control pills last week I reminded her she needs to use condoms if she has sex within the next couple weeks she is dealing with depression and is on depression pills so she has not been too interested in having sex anyway but regardless to protect herself from she needs to use condom I told her that I would send a prescription for metronidazole for 7 days which was her treatment of choice she did not want to use the gel, and I will send 1 refill on it but I want her very much to try and refrain from using it, and certainly not to repeat treatment unless she was absolutely certain that she had a creamy sticky fishy smelling abnormal discharge and not to be over treating BV when it is not necessary she may be did interested in trying the boric acid capsules and a discretionary basis but not overuse the soap and not overuse the metronidazole. Orders: Orders Bacterial Vaginosis Panel Today B96.89 - Other specified bacterial agents as the cause of diseases classified elsewhere, N76.0 - Acute vaginitis, Z11.3 - Encounter for screening for infections with a predominantly sexual mode of transmission CT NG by PCR Today B96.89 - Other specified bacterial agents as the cause of diseases classified elsewhere, N76.0 - Acute vaginitis, Z11.3 - Encounter for screening for infections with a predominantly sexual mode of transmission Medications: New metronidazole May use only with 100% certainty of bacterial vaginosis symptoms 500 mg PO Q12H 14 tabs 1RF Coding Level of Care Code Est Pt Level 3 (31228) Diagnoses Screen for sexually transmitted diseases Z11.3 Bacterial vaginosis N76.0; B96.89 control counseling Z30.09
== END 2023-01-19 15:38 | disposition home or self-care (01) ==
LOC: HO.HWS 14:32
PROVIDERS: PCP Registered Nurse; Visit Provider Advanced Practice Midwife
DX: Z11.3 Encounter for screening for infections with a predominantly sexual mode of transmission (principal); N76.0 Acute vaginitis; B96.89 Other specified bacterial agents as the cause of diseases classified elsewhere
CPT/HCPCS: 99213

== ENCOUNTER 2023-01-19 14:32 | Outpatient (REF) | payer OTHER, SELFPAY ==
[2023-01-19 18:37] LABS: CT PCR NOT DETECTED (Not Detect.); NG PCR NOT DETECTED (Not Detect.)
[2023-01-20 12:01] LABS: BV Int Neg Control Negative (Negative); BV Int Pos Control Positive (Positive)
== END 2023-01-19 14:33 | disposition home or self-care (01) ==
LOC: HO.LNP 14:32
PROVIDERS: PCP Registered Nurse; Visit Provider Advanced Practice Midwife
DX: Z11.3 Encounter for screening for infections with a predominantly sexual mode of transmission (principal); N76.0 Acute vaginitis; B96.89 Other specified bacterial agents as the cause of diseases classified elsewhere
CPT/HCPCS: 0353U; 87480; 87510; 87660; 99212

== ENCOUNTER 2023-01-30 12:31 | Emergency (ER) | payer OTHER, SELFPAY ==
[2023-01-30 12:46] VITALS: BP 136/91; PULSE 109; RESP 18; TEMP 38.2; O2SAT 96; BMI 39.9
--- NOTE | 2023-01-30 12:48 | ED_ITS ---
HPI - General Adult General Chief complaint: Nausea/Vomiting/Diarrhea Stated complaint: Vomiting Time Seen by Provider: 01/30/23 15:29 Source: patient Mode of arrival: ambulatory Limitations: no limitations History of Present Illness HPI narrative: 27 yo female previously healthy here with complaints of cough, congestion, subjective fevers/chills, headache, nausea/vomiting/diarrhea since yesterday. Daughter has similar symptoms. No chest pain, diff breathing, skin rash, neck pain/stiffness. Related Data Home Medications Medication Instructions Recorded Confirmed blood pressure test kit-large #1 ea 09/02/22 Previous Rx's Medication Instructions Recorded norethindrone (contraceptive) 0.35 0.35 mg PO DAILY #84 tabs 09/02/22 mg tablet metronidazole 500 mg tablet 500 mg PO Q12H #14 tabs 01/19/23 ondansetron 4 mg disintegrating 4 mg PO Q6H PRN nausea and 01/30/23 tablet vomiting #10 tabs Allergies Allergy/AdvReac Type Severity Reaction Status Date / Time sulfamethoxazole Allergy Intermediate RASH Verified 01/30/23 12:46 [From BACTRIM] trimethoprim [From BACTRIM] Allergy Intermediate RASH Verified 01/30/23 12:46 Review of Systems Review of Systems: Yes all other systems are reviewed and are negative Constitutional: Constitutional: Reports no additional constitutional complaints, Denies body ache(s), Reports chills, Reports fever(s), Reports headache(s) and Denies weakness Eyes: Eyes: Reports no additional eye complaints and Denies change in vision ENT: Reports system reviewed and no additional complaints, except as documented, Denies dizziness, Reports headache(s), Reports nasal congestion, Denies nasal discharge and Denies neck pain Cardiovascular: Cardiovascular: Reports no additional cardiovascular complaints, Denies chest pain, Denies leg edema and Denies dyspnea Respiratory: Respiratory: Reports no additional respiratory complaints, Reports cough and Denies dyspnea Gastrointestinal: Gastrointestinal: Reports no additional gastrointestinal complaints, Denies abdominal pain, Reports diarrhea, Reports nausea and Reports vomiting Genitourinary: Genitourinary: Reports no additional female genitourinary complaints and Denies urinary incontinence Musculoskeletal: Musculoskeletal: Reports no additional musculoskeletal complaints, Denies back pain, Denies arthralgias, Denies joint swelling, Denies neck pain, Denies numbness and Denies tingling Integumentary/Breasts: Skin/Breast: Reports system reviewed and no additional complaints, except as docu and Denies rash Neurologic: Reports system reviewed and no additional complaints, except as documented, Denies Abnormal speech present, Denies dizziness, Reports headache(s), Denies numbness, Denies tingling and Denies weakness PMFSH Past Medical History Attestation statement: The following information was validated with the patient. Source: old records reviewed and nursing notes reviewed Medical History Fall (on) (from) other stairs and steps, initial encounter Obesity (BMI 30-39.9) Family History Family History Mother HTN (hypertension) Maternal Grandmother Epilepsy Maternal Aunt Diabetes Brother Coloboma, congenital heart disease, choanal atresia, growth retardation, genital hypoplasia, ear and hearing anomaly (CHARGE) syndrome Sister Autism disorder Social History Social History Household Members: Significant Other and Children Housing: House Alcohol intake: never Patient Tobacco Use Status: Never used Tobacco Special nereida needs: No Agree to transfusion: Yes Advance Directives: No Advance Directives Information Provided: No Physical Exam ED Vital Signs: Vital Signs - 24 hr 01/30/23 17:17 01/30/23 17:26 Temperature 99.2 F 99.3 F BMI result Body Mass Index 39.9 Const General: cooperative, healthy appearing, comfortable and no acute distress Orientation/consciousness: patient oriented x3 Limitations: no limitations HENMT Head: Yes normal to inspection Ears: hearing grossly normal bilaterally and TM's normal bilaterally General nose exam: Normal external nose present Face and sinus: Yes normal facial exam Mouth: Normal oral and palatal mucosa present Throat: Yes posterior oropharynx normal, Yes tonsils normal and Yes uvula midline Eyes General: appearance normal, both eyes and all related structures Pupils: Equal, round and reactive pupils present Neck Neck: Yes normal visual inspection, Yes full ROM, Yes no lymphadenopathy and Yes no meningeal signs Chest Chest palpation & inspection: normal inspection of the chest Resp Effort & Inspection: normal respiratory effort Auscultation: clear to auscultation bilaterally Cardio Rate: regular rate Rhythm: regular rhythm Peripheral pulses: Peripheral pulses 2+ throughout GI Inspection: Yes normal to inspection Palpation (GI): Soft to palpation and nontender Auscultation: normal bowel sounds Back/Spine/Pelvis Thoracic/Lumbar Spine: thoracic and lumbar spine normal to inspection Skin General skin exam: no rashes or lesions noted Neuro General: patient oriented x3, no meningeal signs, no focal motor deficits and normal sensation to monofilament Cranial nerves: Yes Equal, round and reactive pupils present Cognition (Neuro): normal cognition Speech: No Abnormal speech present Gait exam (Neuro): Normal gait present Motor exam (neuro): 5/5 motor strength present throughout Extrem General: Yes normal to inspection Course Course Course Narrative: RME: 27 yold female presents to the ED for nasal congestion, nasuea, diaarheea, sore throat and coughing. She states daughter has similiar symptoms. SARS and strep ordered. zofran and tylenol ordere. Reevaluation(s) Reevaluation #1: Temp and hr improved-tolerating liquids and tracie crackers with no vomiting episodes. Likely viral gastroenteritis. Reviewed worrisome signs and symptoms of when to return to the emergency room. Comfortable plan for discharge home. Medications Administered Discontinued Medications Generic Name Dose Route Start Last Admin Trade Name Freq PRN Reason Stop Dose Admin Acetaminophen 975 mg 01/30/23 12:49 01/30/23 16:05 Acetaminophen 325 Mg Tablet PO 01/30/23 12:50 975 mg ONCE ONE Administration Ondansetron HCl 4 mg 01/30/23 12:49 01/30/23 16:05 Ondansetron Odt 4 Mg Tab.Rapdis TRANSLINGU 01/30/23 12:50 4 mg ONCE ONE Administration Medical Decision Making Medical Decision Making [facility] Narrative: 27 yo female previously healthy here with complaints of cough, congestion, subjective fevers/chills, headache, nausea/vomiting/diarrhea since yesterday. Daughter has similar symptoms. No chest pain, diff breathing, skin rash, neck pain/stiffness. Exam is benign. Patient does have a low-grade fever and tachycardia. Will give sublingual Zofran and Tylenol. Will send testing for flu/COVID/RSV Differential Diagnosis Differential Diagnoses: The differential diagnosis associated with the presentat ion includes viral syndrome low concern for acute abdomen Admission/Observation Consideration of admission/observation: Escalation of care including admission/observation considered likely viral gastroenteritis-well hydrated appearing, no need for labs of IVF Lab Data MDM Lab Attestation statement: I reviewed the patient's lab results. Labs: Lab Results 01/30/23 Range/Units 16:01 Influenza Type A (PCR) NEGATIVE (Negative) Influenza Type B (PCR) NEGATIVE (Negative) RSV RNA Qual (PCR) NEGATIVE (Negative) SARS-CoV-2 RNA (RT-PCR) NEGATIVE (Negative) Tests considered The following testing was considered but not selected: no focal abdominal pain to suggest need for CT abdomen and pelvis Prescription Management I considered prescription management with: Antibiotic Discharge Plan Discharge Clinical Impression: Gastroenteritis Patient Disposition: Home, Self-Care Instructions: Gastroenteritis (ED) Additional Instructions: Testing for flu, covid, rsv are negative Motrin or tylenol for pain or fever Start with clear liquids then advance diet as tolerated Prescriptions: New ondansetron 4 mg tablet,disintegrating 4 mg PO Q6H PRN (Reason: nausea and vomiting) Qty: 10 0RF No Action (DME) blood pressure test kit-large Kit See Rx Instructions .ROUTE BID Qty: 1 Rx Instructions: As directed norethindrone (contraceptive) 0.35 mg tablet 0.35 mg PO DAILY Qty: 84 3RF metronidazole 500 mg tablet 500 mg PO Q12H Qty: 14 1RF Rx Instructions: May use only with 100% certainty of bacterial vaginosis symptoms Referrals: Nereida John FNP [Primary Care Provider] - 1 week Interventions: ED Discharge Assessment Last Done: 01/30/23 17:27 Discharge Date/Time: 01/30/23 17:27
[2023-01-30] MEDS: Acetaminophen 325 MG TABLET 975 MG PO (16:05)
[2023-01-30] MEDS: Ondansetron ODT 4 MG TAB.RAPDIS TRANSLINGU (16:05)
[2023-01-30 16:55] LABS: Influenza A PCR NEGATIVE (Negative); Influenza B PCR NEGATIVE (Negative); Resp Syncy Virus RNA Qual PCR NEGATIVE (Negative); SARS COV2 PCR INHOUSE NEGATIVE (Negative)
[2023-01-30 17:17] VITALS: TEMP 37.3
[2023-01-30 17:26] VITALS: TEMP 37.4
== END 2023-01-30 17:27 | disposition home or self-care (01) ==
PROVIDERS: Physician Assistant; Emergency Provider Emergency Medicine; PCP Registered Nurse
DX: K52.9 Noninfective gastroenteritis and colitis, unspecified (principal); R05.9 Cough, unspecified; R51.9 Headache, unspecified; R11.2 Nausea with vomiting, unspecified; Z20.822 Contact with and (suspected) exposure to COVID-19; Z20.828 Contact with and (suspected) exposure to other viral communicable diseases
CPT/HCPCS: 0241U; 99283

== ENCOUNTER 2023-02-18 09:27 | Outpatient (REF) | payer OTHER, SELFPAY ==
--- NOTE | 2023-02-18 09:32 | EMG_ITS ---
Referred by: Nereida [place] ARJUN Procedure done: Bilateral upper extremities NCS/EMG Precautions and/or limitations: None The limb temperature was monitored continuously and remained between 32-36 degrees C during the performance of the NCS. Nerve Conduction Studies Anti Sensory Summary Table ?Stim Site NR Onset (ms) Norm Onset (ms) Peak (ms) Norm Peak (ms) O-P Amp (?V) Norm O-P Amp Site1 Site2 Delta-0 (ms) Dist (cm) Alvaro (m/s) Norm Alvaro (m/s) Left Median Anti Sensory (2nd Digit) Wrist ? 3.5 4.5 <3.6 24.3 >10 Wrist 2nd Digit 3.5 14.0 40 Right Median Anti Sensory (2nd Digit) Wrist ? 3.9 4.7 <3.6 23.8 >10 Wrist 2nd Digit 3.9 14.0 36 Right Radial Anti Sensory (Thumb) Forearm ? 1.0 1.9 <3.1 23.3 Forearm Thumb 1.0 0.0 Left Ulnar Anti Sensory (5th Digit) Wrist ? 2.3 3.0 <3.7 19.8 >15.0 Wrist 5th Digit 2.3 14.0 61 Right Ulnar Anti Sensory (5th Digit) Wrist ? 1.7 2.5 <3.7 21.3 >15.0 Wrist 5th Digit 1.7 14.0 82 Motor Summary Table ?Stim Site NR Onset (ms) Norm Onset (ms) O-P Amp (mV) Norm O-P Amp iAmp (mV) Amp (1st) (%) Site1 Site2 Delta-0 (ms) Dist (cm) Alvaro (m/s) Norm Alvaro (m/s) Left Median Motor (Abd Poll Brev) Wrist ? 5.9 <3.9 7.2 >4.5 8.4 100.0 Elbow Wrist 1.2 20.5 171 >45 Elbow ? 7.1 6.6 8.5 91.7 Right Median Motor (Abd Poll Brev) Wrist ? 5.0 <3.9 9.2 >4.5 11.2 100.0 Elbow Wrist 3.4 21.0 62 >45 Elbow ? 8.4 8.8 11.0 95.7 Left Ulnar Motor (Abd Dig Minimi) Wrist ? 2.4 <3.0 6.6 >5 8.3 100.0 B Elbow Wrist 2.8 17.0 61 >45 B Elbow ? 5.2 6.1 7.7 92.4 A Elbow B Elbow 1.1 10.0 91 >45 A Elbow ? 6.3 6.1 7.8 92.4 Right Ulnar Motor (Abd Dig Minimi) Wrist ? 2.4 <3.0 8.6 >5 11.3 100.0 B Elbow Wrist 2.8 17.5 62 >45 B Elbow ? 5.2 8.2 10.8 95.3 A Elbow B Elbow 1.2 10.0 83 >45 A Elbow ? 6.4 7.9 10.2 91.9 EMG ?Side Muscle Nerve Root Ins Act Fibs Psw Amp Dur Poly Recrt Int Pat Comment Right 1stDorInt Ulnar C8-T1 Nml Nml Nml Nml Nml 0 Nml Complete Right FlexCarRad Median C6-7 Nml Nml Nml Nml Nml 0 Nml Complete Right Biceps Musculocut C5-6 Nml Nml Nml Nml Nml 0 Nml Complete Right Triceps Radial C6-7-8 Nml Nml Nml Nml Nml 0 Nml Complete Right Deltoid Axillary C5-6 Nml Nml Nml Nml Nml 0 Nml Complete Left 1stDorInt Ulnar C8-T1 Nml Nml Nml Nml Nml 0 Nml Complete Left FlexCarRad Median C6-7 Nml Nml Nml Nml Nml 0 Nml Complete Left Biceps Musculocut C5-6 Nml Nml Nml Nml Nml 0 Nml Complete Left Triceps Radial C6-7-8 Nml Nml Nml Nml Nml 0 Nml Complete Left Deltoid Axillary C5-6 Nml Nml Nml Nml Nml 0 Nml Complete FINDINGS: Bilateral median motor nerves showed prolonged distal latency, normal amplitude and normal conduction velocity. Bilateral median sensory nerves showed prolonged peak latency. All other nerves tested were within normal. Concentric needle EMG was performed in selected muscles of the bilateral upper extremities. Study did not reveal signs of electric abnormalities as shown in the table below. IMPRESSION: 1. This is an abnormal study. 2. There is electrodiagnostic evidence for bilateral moderate-severe median neuropathy at the wrist, consistent with carpal tunnel syndrome. 3. There is no electrodiagnostic evidence for ulnar neuropathy, brachial plexopathy, or cervical radiculopathy. Thank you for your kind referral. Ariadna Sharpe MD, PREMA Board Certified, [place] [employer] and [employer] (ABPMR) Board Certified, [place] Board [employer] Electrodiagnostic [employer] (ABEM) CODIN [id number] x 2 MTDD
== END 2023-02-18 09:28 | disposition home or self-care (01) ==
LOC: HO.NEURO 09:27
PROVIDERS: PCP Registered Nurse; Visit Provider Registered Nurse
DX: R20.0 Anesthesia of skin (principal); R20.2 Paresthesia of skin
CPT/HCPCS: 95886; 95911

== ENCOUNTER → 2023-02-18 09:32 | Outpatient (BNV) | payer OTHER, SELFPAY | PROVIDERS: PCP Registered Nurse; Visit Provider Physical Medicine & Rehabilitation | DX: G56.13 Other lesions of median nerve, bilateral upper limbs (principal); G56.03 Carpal tunnel syndrome, bilateral upper limbs | CPT/HCPCS: 95886; 95911 ==

== ENCOUNTER 2024-01-17 11:07 | Outpatient (REF) | payer OTHER, SELFPAY ==
[2024-01-17 14:38] LABS: Alanine Aminotransferase 20 U/L (0-31); Albumin Level 4.5 g/dL (3.5-5.0); Alkaline Phosphatase 85 U/L (39-117); Anion Gap 11 (12-20); Aspartate Amino Transferase 21 U/L (5-31); Bilirubin Total 0.3 mg/dL (0.0-1.0); Blood Urea Nitrogen 10 mg/dL (9-16); Calcium 9.7 mg/dL (8.4-10.2); Carbon Dioxide 24 mmol/L (22-29); Chloride 108 mmol/L (96-108); Cholesterol 175 mg/dL (<200); Estimated Glomerular Filt Rate > 60; Glucose Random 82 mg/dL (60-115); HDL Cholesterol 47 mg/dL (>40); LDL Cholesterol Calculated 113 mg/dL (<100); Potassium 4.5 mmol/L (3.3-5.1); Sodium 138 mmol/L (135-145); TSH reflex Free T4 0.71 uIU/mL (0.32-4.0); Total Protein 7.7 g/dL (6.5-8.0); Triglycerides 79 mg/dL (<150)
== END 2024-01-17 11:08 | disposition home or self-care (01) ==
LOC: HO.HHCL 11:07
PROVIDERS: Visit Provider Registered Nurse
DX: I10 Essential (primary) hypertension (principal); Z76.89 Persons encountering health services in other specified circumstances
CPT/HCPCS: 36415; 80053; 80061; 84443

== ENCOUNTER → 2024-01-30 11:33 | Outpatient (REF) | payer OTHER, SELFPAY ==
--- NOTE | 2024-01-30 11:33 | HM_ITS ---
Conclusion: 1. Patient was monitored for total period of 1 day 2. Baseline was normal sinus rhythm with average heart of 85 beats per minute 3. No significant pauses or arrhythmias noted 4. No patient reported events MTDD
== END ==
LOC: HO.CARD 11:33
PROVIDERS: PCP Registered Nurse; Visit Provider Registered Nurse
DX: R00.0 Tachycardia, unspecified (principal)
CPT/HCPCS: 93225

== ENCOUNTER → 2024-01-30 11:33 | Outpatient (BNV) | payer OTHER, SELFPAY | PROVIDERS: PCP Registered Nurse; Visit Provider Internal Medicine Cardiovascular Disease | DX: R00.0 Tachycardia, unspecified (principal) | CPT/HCPCS: 93227 ==

== ENCOUNTER 2024-04-03 22:17 | Emergency (ER) | payer OTHER, SELFPAY ==
--- NOTE | ~2024-04-03 | CT_ITS ---
CLINICAL HISTORY: pain lump post head strike CT head without contrast Comparison: None Findings: No intra-axial mass, midline shift, hydrocephalus, or acute hemorrhage. No significant atrophy-like change or white matter disease. Air-fluid levels in the maxillary sinuses suggesting acute sinusitis. The orbits are unremarkable. There is no acute fracture. IMPRESSION: No acute intracranial findings. Acute maxillary sinusitis. This document has been electronically signed by: Kenrick Cruz MD on 04/04/2024 00:09:28
--- NOTE | ~2024-04-03 | CT_ITS ---
CLINICAL HISTORY: pain post head strike CT cervical spine without contrast Comparison: None Findings: Reversal of the cervical lordosis. No significant degenerative change. No acute fractures or dislocations. Visualized intracranial contents are unremarkable. Scattered prominent lymph nodes throughout the neck, may be reactive however are nonspecific. Lung apices are clear. IMPRESSION: No acute findings. This document has been electronically signed by: Kenrick Cruz MD on 04/04/2024 00:08:17
[2024-04-03 22:18] VITALS: BP 140/87; PULSE 96; RESP 16; TEMP 36.4; O2SAT 100; BMI 35.2
[2024-04-03] MEDS: Acetaminophen 325 MG TABLET 650 MG PO (22:29)
[2024-04-03] MEDS: Ondansetron ODT 4 MG TAB.RAPDIS SUBLINGUAL (23:19)
--- NOTE | 2024-04-03 23:22 | PC.NURSE ---
Per Dr. Tapia CT of Head and Neck, was medicated for nausea.
--- NOTE | 2024-04-03 23:29 | PC.NURSE ---
pt taken to ct scan.
[2024-04-04 02:00] VITALS: BP 111/69; PULSE 87; RESP 16; TEMP 36.6; O2SAT 98
--- NOTE | 2024-04-04 02:41 | ED.HEATRA ---
HPI - Head Injury General Chief complaint: Head Injury Stated complaint: head inj/?Concussion Time Seen by Provider: 04/04/24 02:37 Source: patient Mode of arrival: ambulatory Limitations: no limitations History of Present Illness ED Provider: Dr. Taya Tapia HPI Narrative: Patient comes to the emergency room complaining of a head injury. Patient states that she leaned down to grab something, stood up and hit the top of her head against the freezer door which was open. Patient states that she was a bit dizzy, did not lose consciousness, not on blood thinners. Patient states that she was a bit days for about 10 minutes. At this time, patient has localized pain, a bit of a headache, but otherwise feels well. Patient has a small abrasion to the top of the head, no lacerations, no bleeding Related Data Home Medications ?Medication ?Instructions ?Recorded ?Confirmed blood pressure test kit-large #1 ea 09/02/22 Previous Rx's ?Medication ?Instructions ?Recorded norethindrone (contraceptive) 0.35 0.35 mg PO DAILY #84 tabs 09/02/22 mg tablet metronidazole 500 mg tablet 500 mg PO Q12H #14 tabs 01/19/23 ondansetron 4 mg disintegrating 4 mg PO Q6H PRN nausea and 01/30/23 tablet vomiting #10 tabs Allergies Allergy/AdvReac Type Severity Reaction Status Date / Time sulfamethoxazole Allergy Intermediate RASH Verified 04/03/24 22:24 [From BACTRIM] trimethoprim [From BACTRIM] Allergy Intermediate RASH Verified 04/03/24 22:24 Review of Systems Review of Systems: Constitutional : No Weight loss, No Fever, No Chills, No Night Sweats, No Fatigue, No Malaise ENT/Mouth : No Hearing loss, No Ear Pain, No Nasal Congestion, No Sinus Pain, No Hoarseness, No sore throat, No Rhinorrhea, No Swallowing Difficulty Eyes: No Eye Pain, No Swelling, No Redness, No Foreign Body, No Discharge, No Vision Changes Cardiovascular : No Chest Pain, No SOB, No Dyspnea on Exertion, No Orthopnea, No Edema, No Palpitations Respiratory : No Cough, No Sputum, No Wheezing, No Smoke Exposure, No Dyspnea Gastrointestinal : No Nausea, No Vomiting, No Diarrhea, No Constipation, No abdominal Pain, No Hematochezia, No Melena Genitourinary : no irregular bleeding, No Dysuria, No Urinary Frequency, No Hematuria, No Urinary Incontinence, No Urgency, No Flank Pain, No Urinary Flow Changes, No Hesitancy Musculoskeletal : No joint pain, No Myalgias, No Joint Swelling Skin : Complaining of a bump on the top of the head with a minor abrasion Neuro : No Weakness, No Numbness, No Paresthesias, No Loss of Consciousness, No Dizziness, mild Headache Psych : No Anxiety/Panic, No Depression, No SI/HI/AH/VH, No Social Issues, Heme/Lymph: No Bruising, No Bleeding,No Lymphadenopathy Endocrine : No Polyuria, No Polydipsia, No Temperature Intolerance [facility] Past Medical History Medical History Fall (on) (from) other stairs and steps, initial encounter Obesity (BMI 30-39.9) Family History Family History Mother HTN (hypertension) Maternal Grandmother Epilepsy Maternal Aunt Diabetes Brother Coloboma, congenital heart disease, choanal atresia, growth retardation, genital hypoplasia, ear and hearing anomaly (CHARGE) syndrome Sister Autism disorder Social History Social History Household Members: Significant Other and Children Housing: House Alcohol intake: never Patient Tobacco Use Status: Never used Tobacco Smoked in Last 30 Days: No Use of substances other than those prescribed or required for medical reasons: No Special misty needs: No Agree to transfusion: Yes Advance Directives: No Advance Directives Information Provided: Yes Patient : No Physical Exam Vital Signs: Vital Signs: Last Vital Signs Temp 97.6 F 04/03/24 22:18 Pulse 96 04/03/24 22:18 Resp 16 04/03/24 22:18 BP 140/87 H 04/03/24 22:18 Pulse Ox 100 04/03/24 22:18 O2 Del Method Room Air 04/03/24 22:18 BMI result Body Mass Index 35.2 Const: Other: Appearance: Alert. Oriented X3. No acute distress. Well-appearing Eyes: Pupils equal, round and reactive to light. ENT: Pharynx normal. Neck: Normal inspection. Neck supple. No lymph nodes noted. No crepitus, no C-spine tenderness, no palpable step-offs, normal range of motion CVS: Normal heart rate and rhythm. Pulses normal. Normal S1 and S2 Respiratory: No respiratory distress. Breath sounds normal. No Wheezing. No rales Abdomen: Soft and nontender. No rigidity. No distention. Skin: Skin warm and dry. Normal skin color. Normal skin turgor. Mm abrasion to the top of the head, small ecchymosis Extremities: No lower extremity edema. No Lacerations. No Rash Neuro: Oriented X 3. No motor deficit. No sensory deficit. Moving all extremities. No slurred speech. CN 2 through 12 grossly intact Psych: calm, cooperative, normal affect Medications Administered Discontinued Medications Generic Name Dose Route Start Last Admin Trade Name Freq PRN Reason Stop Dose Admin Acetaminophen 650 mg 04/03/24 22:26 04/03/24 22:29 Acetaminophen 325 Mg Tablet PO 04/03/24 22:27 650 mg ONCE ONE Administration Ondansetron HCl 4 mg 04/03/24 23:17 04/03/24 23:19 Ondansetron Odt 4 Mg Tab.Rapdis SUBLINGUAL 04/03/24 23:18 4 mg ONCE ONE Administration Medical Decision Making Medical Decision Making [facility] Narrative: Patient awake, alert and oriented x3, no acute distress, feeling well, mild headache well-appearing Discussed the CT scan with the patient, no acute findings, sinusitis, likely viral, no antibiotics needed at this time. Patient was given p.o. ibuprofen. Patient states she has meds at home, both Tylenol and Motrin Differential Diagnosis Differential Diagnoses: The differential diagnosis associated with the presentation includes (Contusion, concussion) Independent Interpretation I performed an independent interpretation of an: CT Scan Radiology Impression Discussion of test interpretation with radiology: I have reviewed the radiologist's reading. Radiologist Impression: Reversal of the cervical lordosis. No significant degenerative change. No acute fractures or dislocations. Visualized intracranial contents are unremarkable. Scattered prominent lymph nodes throughout the neck, may be reactive however are nonspecific. Lung apices are clear. IMPRESSION: No acute findings. Discharge Plan Discharge Clinical Impression: Head injury, Concussion Patient Disposition: Home, Self-Care Instructions: Concussion (ED), Head Injury (ED) Additional Instructions: Please follow-up with your primary care physician tomorrow. If you have any worsening or new symptoms, please return to the emergency room or call 911 Prescriptions: No Action ondansetron 4 mg tablet,disintegrating 4 mg PO Q6H PRN (Reason: nausea and vomiting) Qty: 10 0RF (DME) blood pressure test kit-large Kit See Rx Instructions .ROUTE BID Qty: 1 Rx Instructions: As directed norethindrone (contraceptive) 0.35 mg tablet 0.35 mg PO DAILY Qty: 84 3RF metronidazole 500 mg tablet 500 mg PO Q12H Qty: 14 1RF Rx Instructions: May use only with 100% certainty of bacterial vaginosis symptoms Stand Alone Forms: Work/School Release Print Language: [place]
[2024-04-04 03:00] VITALS: BP 111/69; PULSE 87; RESP 16; TEMP 36.6; O2SAT 98
== END 2024-04-04 03:01 | disposition home or self-care (01) ==
PROVIDERS: Emergency Provider Emergency Medicine; PCP Registered Nurse
DX: S06.0X0A Concussion without loss of consciousness, initial encounter (principal); W22.8XXA Striking against or struck by other objects, initial encounter; Y93.89 Activity, other specified; Y92.9 Unspecified place or not applicable; Y99.9 Unspecified external cause status; R42 Dizziness and giddiness
CPT/HCPCS: 70450; 72125; 99284

== ENCOUNTER → 2024-04-03 23:43 | Outpatient (BNV) | payer OTHER, SELFPAY | PROVIDERS: PCP Registered Nurse; Visit Provider Radiology Diagnostic Radiology | DX: S09.90XA Unspecified injury of head, initial encounter (principal) | CPT/HCPCS: 70450; 72125 ==

== ENCOUNTER 2024-07-02 14:37 | Outpatient (REF) | payer OTHER, SELFPAY ==
--- OUTSIDE RECORDS SUMMARY | 2024-07-02 17:29 | XMS_ITS | Encounter Summary ---
Author Organization [employer] Address [address] [facility] 7 [place] [address] Care Team Providers Care Psychological Stress Evaluator Name Role Phone Nereida John GRAPPLE SKIDDER OPERATOR Primary Care Provider [phone] Reason for Visit * Reason Comments Med Refill Encounter Details Date Type Department Care Team (Late st Contact Info) Description 04/15/2023 Refill [facility] ADULT D[facility] [address] [place] [address] Veronica Chowdhury DDS [address] [place] [address] Social History Tobacco Use Types Packs/Day Years [...] 9:30 AM EDT Office Visit [facility] [address] [place] [address] PabloKennedi abebe, OD [address] [place] [address] 09/12/2024 10:30 AM EDT Office Visit [facility] [address] [place] [address] Nereida John FNP [address] [place] [address] 01/01/2025 10:00 AM EST Office Visit [facility] [address] [place] [address] May Anderson documented as of this encounter Visit Diagnoses Not on filedocumented in this encounter Additional Health Concerns Assessment Noted Time PHQ-9 Depression Total Score: 10 023 2:38 PM EST documented as of this encounter Care Teams Psychological Stress Evaluator Relationship Specialty Start Date End Date Nereida John FNP [address] [place] [address] PCP - General Family Medicine 08/09/22 documented as of this encounter
--- OUTSIDE RECORDS SUMMARY | 2024-07-02 17:29 | XMS_ITS | Encounter Summary ---
Author Organization [employer] Address [address] [place] [address] 7 [place] [address] Care Team Providers Care Vice President Of Operations Name Role Phone [facility] Primary Care Provider [phone] Reason for Visit * Reason Onset Date Comments Nurse Triage 01/31/2023 Encounter Details Date Type Department Care Team ([facility] st Contact Info) Description 01/31/2023 Telephone [facility] [address] [place] [address] [facility] [address] [place] [address] Nurse Triage Social History Tobacco Use Types [...] Pt agrees with disposition. Apt with PCP [place] 02/11/23 @ 330pm. Pt is offered the [facility] today but, doesn't want to talk with anyone else about this anxiety. Pt will come to [facility] if becomes more uncomfortable and needs [...] accepted this outcome Please Contact pt at [phone] documented in this encounter Plan of Treatment Upcoming Encounters Date Type Department Care Team (Late st Contact Info) Description 07/11/2024 9:30 AM EDT Office Visit [facility] OPTOMETRY [address] [place] [address] Kennedi Shah, OD [address] [place] [address] 09/12/2024 10:30 AM EDT Office Visit [facility] [address] [place] [address] [facility] [address] [place] [address] 01/01/2025 10:00 AM EST Office Visit [facility] ADULT DENTAL [address] [place] [address] May Anderson documented as of this encounter Visit Diagnoses Not on filedocumented in this encounter Additional Health Concerns Assessment Noted Time PHQ-9 Depression Total Score: 0 01/08/20 23 11:17 AM EST documented as of this encounter Care Teams Vice President Of Operations Relationship Specialty Start Date End Date [facility] [address] [place] [address] PCP - General Family Medicine 08/09/22 documented as of this encounter
--- OUTSIDE RECORDS SUMMARY | 2024-07-02 17:29 | XMS_ITS | Encounter Summary ---
Author Organization [employer] Address [address] [place] [address] 7 [place] [address] Care Team Providers Care Dredge Or Barge Shore Hand Name Role Phone [facility] Primary Care Provider [phone] Reason for Visit * Reason Comments Med Change Request Encounter Details Date Type Department Care Team ([facility] st Contact Info) Description 05/03/2023 Refill [facility] [address] [place], [place] [phone] [facility], [facility] [address] [place] [address] Primary hypertension Social History Tobacco Use Types [...] Description 07/11/2024 9:30 AM EDT Office Visit [facility] OPTOMETRY [address] [place] [address] Pablo, Kennedi, OD [address] [place] [address] 09/12/2024 10:30 AM EDT Office Visit [facility] MEDICINE [address] [place] [address] Nereida John FNP [address] [place] [address] 01/01/2025 10:00 AM EST Office Visit [facility] ADULT DENTAL [address] [place] [address] May Anderson documented as of this encounter Visit Diagnoses Diagnosis Primary hypertension Unspecified essential hypertension documented in this encounter Additional Health Concerns Assessment Noted Time PHQ-9 Depression Total Score: 10 023 2:38 PM EST documented as of this encounter Care Teams Dredge Or Barge Shore Hand Relationship Specialty Start Date End Date Nereida John FNP [address] [place] [address] PCP - General Family Medicine 08/09/22 documented as of this encounter
--- OUTSIDE RECORDS SUMMARY | 2024-07-02 17:29 | XMS_ITS | Encounter Summary ---
Author Organization [employer] Address [address] [place] [address] Care Team Providers Care Desktop Support Associate Name Role Phone [facility] Primary Care Provider [phone] Reason for Visit * Reason Onset Date Comments Medication Question 10/20/2022 Encounter Details Date Type Department Care Team ([facility] st Contact Info) Description 10/20/2022 Telephone [facility] [address] [place] [address] [facility] [address] [place] [address] Medication Question Social History Tobacco Use Types [...] 25 MG tablet Please contact pt at [phone] documented in this encounter Plan of Treatment Upcoming Encounters Date Type Department Care Team (Late st Contact Info) Description 07/11/2024 9:30 AM EDT Office Visit [facility] OPTOMETRY [address] [place] [address] Kennedi Shah, OD [address] [place] [address] 09/12/2024 10:30 AM EDT Office Visit [facility] [address] [place] [address] Nereida John FNP [address] [place] [address] 01/01/2025 10:00 AM EST Office Visit [facility] ADULT DENTAL [address] [place] [address] May Anderson documented as of this encounter Visit Diagnoses Not on filedocumented in this encounter Additional Health Concerns Assessment Noted Time PHQ-9 Depression Total Score: 9 09/09/19 9:41 AM EDT documented as of this encounter Care Teams Desktop Support Associate Relationship Specialty Start Date End Date Nereida John FNP [address] [place] [address] PCP - General Family Medicine 08/09/22 documented as of this encounter
--- OUTSIDE RECORDS SUMMARY | 2024-07-02 17:29 | XMS_ITS | Encounter Summary ---
Author Organization [employer] Address [address] [place] [address] 7 [place] [address] Care Team Providers Care Car Storer Name Role Phone [facility] Primary Care Provider [phone] Reason for Visit * Reason Onset Date Comments Call Back Request 04/11/2023 Encounter Details Date Type Department Care Team ([facility] Contact Info) Description 04/11/2023 Telephone [facility] [address] [place], [place] [phone] [facility] [address] [place] [address] Call Back Request Social History Tobacco Use [...] today (04/11) OV. Please contact pt at [phone] documented in this encounter Plan of Treatment Upcoming Encounters Date Type Department Care Team (Late st Contact Info) Description 07/11/2024 9:30 AM EDT Office Visit [facility] [address] [place] [address] Kennedi Shah, CJ [address] [place] [address] 09/12/2024 10:30 AM EDT Office Visit [facility] [address] [place] [address] [facility] [address] [place] [address] 01/01/2025 10:00 AM EST Office Visit [facility] ADULT [facility]ENT[facility] [address] [place] [address] May Anderson documented as of this encounter Visit Diagnoses Not on filedocumented in this encounter Additional Health Concerns Assessment Noted Time PHQ-9 Depression Total Score: 10 023 2:38 PM EST documented as of this encounter Care Teams Car Storer Relationship Specialty Start Date End Date Nereida John FNP [address] [place] [address] PCP - General Family Medicine 08/09/22 documented as of this encounter
--- OUTSIDE RECORDS SUMMARY | 2024-07-02 17:29 | XMS_ITS | Encounter Summary ---
Author Organization [facility] Address [address] [place] [address] Phone Care Team Providers Care Lint Cleaner Name Role Phone Brenda Berger MD Primary Care Provider [phone] Encounter Details Date Type Department Care Team (Late st Contact Info) Description 06/05/2009 Documentation [facility] Family Medicine [address] [place] [address] Family Medicine, Physician [address] [place], [place] [phone] Social History Tobacco Use Types Packs/Day Years [...] on filedocumented in this encounter Care Teams Lint Cleaner Relationship Specialty Start Date End Date Brenda Berger MD [address] [place] [address] [place] [address] PCP - General 10/08/16 08/19/22 documented as of this encounter
--- OUTSIDE RECORDS SUMMARY | 2024-07-02 17:30 | XMS_ITS | Encounter Summary ---
Author Organization [employer] Address [address] [facility] 7 [place] [address] Care Team Providers Care Business Professor Name Role Phone [place] [facility] Primary Care Provider [phone] Reason for Visit * Reason Onset Date [...] Encounter Details Date Type Department Care Team ([facility] Contact Info) Description 08/11/2022 Telephone [facility] [address] [place], [place] [phone] [facility] [address] [place], [place] [phone] Medication Question (escitalopram (Lexapro) 10 MG tablet); [...] - 08/13/2022 10:44 AM EDT T/C to [phone] for below message, Pt. States she is [...] 08/11/2022 4:47 PM EDT Return T/C to [phone] for below message, No answer, LVM to call back on [phone]. * Telephone Encounter - Ann Mckeon - 08/11/2022 3:03 PM EDT Tc from patient calling in regards to medication question for escitalopram (Lexapro) 10 MG tablet. documented in this encounter Plan of Treatment Upcoming Encounters Date Type Department Care Team (Late st Contact Info) Description 07/11/2024 9:30 AM EDT Office Visit [facility] OPTOMETRY [address] [place] [address] Kennedi Shah, OD [address] [place] [address] 09/12/2024 10:30 AM EDT Office Visit [facility] MEDICINE [address] [place] [address] Nereida John FNP [address] [place] [address] 01/01/2025 10:00 AM EST Office Visit [facility] ADULT DENTAL [address] [place] [address] May Anderson documented as of this encounter Visit Diagnoses Not on filedocumented in this encounter Additional Health Concerns Assessment Noted Time PHQ-9 Depression Total Score: 5 08/04/19 23 2:45 PM EDT documented as of this encounter Care Teams Business Professor Relationship Specialty Start Date End Date Nereida John FNP [address] [place] [address] PCP - General Family Medicine 08/09/22 documented as of this encounter
--- OUTSIDE RECORDS SUMMARY | 2024-07-02 17:30 | XMS_ITS | Encounter Summary ---
Author Organization [facility] Address [address] [place] [address] Phone Care Team Providers Care Student Records Specialist Name Role Phone Brenda Berger MD Primary Care Provider [phone] Encounter Details Date Type Department Care Team (Late st Contact Info) Description 12/28/2010 Documentation [facility] [place] Medicine [address] [place] [address] Family Medicine, Physician [address] [place], [place] [phone] Social History Tobacco Use Types Packs/Day Years [...] on filedocumented in this encounter Care Teams Student Records Specialist Relationship Specialty Start Date End Date Brenda Berger MD [address] [place] [address] [place] [address] PCP - General 10/08/16 08/19/22 documented as of this encounter
--- OUTSIDE RECORDS SUMMARY | 2024-07-02 17:30 | XMS_ITS | Clinical Summary ---
Author Organization [employer] Address [address] [place] [address] 7t [place] [address] Care Team Providers Care Student Accounts Manager Name Role Phone Nereida John HOTEL AND DINING ROOM CASHIER Primary Care Provider [phone] Allergies Active Allergy Reactions Criticality Noted Date [...] intervention , [facility], Comply with medication [...] Informed her that she was referred to [employer] [facility]. Provided education around integrated medicine and the options of follow up BE's as needed. Provided contact information should questions or concerns arise. Plan: Tea will continue to engage in effective coping mechanisms provided on prioir session. I provide her with [employer] contact number for her to follow up [...] address current needs Referralpalced on 08/04/22 through [employer] [facility]. Strengths include Tea is in action stage of change and her motivation will serve as treatment engagement. PLAN: 1. Follow up with [facility]: Not recommended for follow-up 2. Patient goal [...] treatment engagement. PLAN: 1. Follow up with [facility]: Not recommended for follow-up 2. Patient goal is learn to manage her anxiety 3. Behavioral Recommendations a. Ind. Therapy b. Medication Managment c. Coping skills discussed Encounters Date Type Department Care Team Description 06/27/2024 9:40 AM EDT Office Visit [facility] [address] [place] [address] Christoph Crespo MD Strep pharyngitis 06/27/2024 Travel 06/21/2024 Telephone [facility] [address] [place] [address] Nereida John FNP jeremie recall 05/30/2024 Refill [facility] [address] [place] [address] Nereida John FNP Binge eating disorder, unspecified [...] Description 07/11/2024 9:30 AM EDT Office Visit [facility] [address] [place] [address] Pablo, Kennedi, OD [address] [place] [address] 09/12/2024 10:30 AM EDT Office Visit [facility] [address] [place] [address] Alvaro, Nereida, HOTEL AND DINING ROOM CASHIER [address] [place] [address] 01/01/2025 10:00 AM EST Office Visit [facility] ADULT DENT[facility] [address] [place] [address] May Anderson Health Maintenance Due Date Last [...] AM EDT) Influenza B Negative Negative, Indeterminate [facility] Swab 06/27/2024 9:49 AM EDT us Christoph Crespo MD POINT OF CARE TEST ENTER/EDIT OR DERABLES Final Result [facility] [address] [place] [address] [phone] * Influenza A (ID NOW Rapid Molecular) (06/27/2024 9:49 AM EDT) Influenza A Negative Negative, Indeterminate [facility] Swab 06/27/2024 9:49 AM EDT us Christoph Crespo MD POINT OF CARE TEST ENTER/EDIT OR DERABLES Final Result Performing Organization Address [facility]/State/ZIP Co de Phone Number [facility] [address] [place] [address] [phone] * POCT Rapid COVID Ag (06/27/2024 9:30 AM EDT) Rapid COVID Ag Negative Swab 06/27/2024 9:30 AM EDT Christoph Crespo MD POINT OF CARE TEST ENTER/EDIT OR DERABLES Final Result * (ABNORMAL) POCT rapid strep A manually resulted (06/27/2024 9:30 AM EDT) [facility] Rapid Strep A Screen Positive( A) Negative, None Detected Swab 06/27/2024 9:30 AM EDT us Christoph Crespo MD POINT OF CARE TEST ENTER/EDIT OR DERABLES Final Result * CT Head w/o Contrast (04/04/2024 12:09 AM EST) Anatomical Region Laterality Modality Head, Neck Computed Tomogra phy 04/04/2024 12:0 9 AM EST Narrative 04/04/2024 12:10 AM EST ? [facility] ?[address] ?[place] [address] ? CT Scan Report ? Signed ? Patient: Wilson,Tea ?MR#: [id number] ?? 7 ? : 1995 ?Acct:[id number] ? Age/Sex: 28 / F ?ADM Date: 02/04/25 ? Loc: HO.ED ? Attending Dr: ? Ordering Physician: Generic ED Physician ?? Date of Service: 04/03/24 ?? Procedure(s): CT head/brain wo IV con ?? Accession Number(s): [id number] ? cc: Generic ED Physician; Nereida John HOTEL AND DINING ROOM CASHIER ? Report Number: ?? [id number]: Total DLP = ??615.00 mGy-cm ? CLINICAL [...] DD/ 0009 ? TD/TT: 04/04/24 0009 ? Mop Man: ? Procedure Note Col[place]ter, Image - 04/04/[address] [address] [address] Scan Report Signed Patient: Tea WilsonMR#: [id number] 7 : 1995Acct:[id number] Age/Sex: 28 / FADM Date: 04/03/24 Loc: HO.ED Attending Dr: Ordering Physician: Generic ED Physician Date of Service: 04/03/24 Procedure(s): CT head/brain wo IV con Accession Number(s): [id number] cc: Generic ED Physician; [facility] HOTEL AND DINING ROOM CASHIER Report Number: [id number]: Total DLP = 615.00 mGy-cm CLINICAL HISTORY: [...] in OV> 04/04/24 0010 DD/ TD/TT: 04/04/248 Mop Man: us [facility] External Provider IMG CT PROCEDURES Edited Result - Final * CT Cervical Spine w/o Contrast (04/04/2024 12:08 AM EST) Anatomical Region Laterality Modality Spine, C-spine Computed Tomogra phy 04/04/2024 12:0 8 AM EST Narrative 04/04/2024 12:10 AM EST ? [facility] ?[address] ?[place] [address] ? CT Scan Report ? Signed ? Patient: Tea Wilson ?MR#: [id number] ?? 7 ? : 1995 ?Acct:[id number] ? Age/Sex: 28 / F ?ADM Date: 04/03/24 ? Loc: HO.ED ? Attending Dr: ? Ordering Physician: Generic ED Physician ?? Date of Service: 04/03/24 ?? Procedure(s): CT cervical spine wo IV con ?? Accession Number(s): [id number] ? cc: Generic ED Physician; Nereida John HOTEL AND DINING ROOM CASHIER ? Report Number: ?? [id number]: Total DLP = ??583.00 mGy-cm ? CLINICAL [...] DD/ 0008 ? TD/TT: 04/04/24 0008 ? Mop Man: ? Procedure Note Sherrell, [place] - 04/04/[address] [address] [address] Scan Report Signed Patient: Tea WilsonMR#: [id number] 7 : 1995Acct:[id number] Age/Sex: 28 / FADM Date: 04/03/24 Loc: HO.ED Attending Dr: Ordering Physician: Generic ED Physician Date of Service: 04/03/24 Procedure(s): CT cervical spine wo IV con Accession Number(s): [id number] cc: Generic ED Physician; Nereida John HOTEL AND DINING ROOM CASHIER Report Number: [id number]: Total DLP = 583.00 mGy-cm CLINICAL HISTORY: [...] MD in OV> 04/04/248 DD/ TD/TT: 04/04/247 Mop Man: [facility] External Provider IMG CT PROCEDURES Edited Result - Final * (ABNORMAL) Lipid Panel, Standard (01/17/2024 11:08 AM EST) Triglycerides 79 <150 mg/dL [facility] Comment:Desirable Triglyceri de: less than 150 mg/dLBorderline High Triglyceride 150-199 mg/dLHigh Triglyceride: 200-499 mg/dLVery High Triglyceride: greater than or equal to 5OO mg/dL Cholesterol 175 <200 mg/dL [facility] Comment:Desirable Cholestero l: less than 200 mg/dLBorderline High Cholesterol: 200-239 mg/dLHigh Cholesterol: greater than 239 mg/dL LDL Cholesterol Calculated 113(H) <100 mg/dL [facility] Comment:Desirable LDL: less than 100 mg/dLNear Optimal/Above Optimal LDL: 110- 129 mg/dLBorderline High LDL: 130-159 mg/dLHigh LDL: 160-189 mg/dLVery High LDL: greater than or equal to 190 mg/dL HDL Cholesterol 47 >40 mg/dL [facility] Comment:Desirable HDL: great er than 40 mg/dL Note: This HDL assay may give artificially low results in patients with liver disease. Blood Venous blood specimen / Unknown 01/17/2024 11:08 AM EST 01/17/2024 1:08 PM EST [facility] HOTEL AND DINING ROOM CASHIER LAB BLOOD ORDERABLES Final Re sult [facility] [address] [place] [phone] * Pap Smear (09/02/2022 11:33 AM EDT) 09/02/2022 11:3 3 AM EDT 09/07/2022 9:20 AM EDT Narrative [facility] - 09/23/2022 1:21 PM EDT ----- ------- Name: Tea Wilson ?Age/Sex: 26/F ? : 1995 Unit#: [id number] ?? Attend Dr: Carla Brooks CNM ?Re09/02/22 ?Status: DEP REF ? Location: HO.LNP ?Disch: ? ----- ------- SPEC : [id number] ? RECD: 09/07/22 ? STATUS: ??SOUT ? REQ NUM: [id number] ? ALLIE: 09/02/22 ? SUBM DR: Carla Brooks CNM ? ENTERED: ??09/07/22 ?SP TYPE: Pap Smr ?OTHR DR: Nereida John HOTEL AND DINING ROOM CASHIER ? ORDERED: ??Pap Smear, PAP path review ? Interpretation ?? General Category: ? Negative for intraepithelial lesion/malignancy. ?? Adequacy: ? Endocervical component present. ?? Interpretation: ? Reactive cellular changes. ?Abundant acute inflammation. ?Clinical Information LMP: 08/01/22 Previous PAP test: Unknown date/findings ? Material Received ?? ThinPrep-Cervical Copies To: ?? Carla Brooks CNM ?? [address] [facility] [address] ?? [place] [address] ?? [phone] ?? WilsonNereida HOTEL AND DINING ROOM CASHIER ?? [address] [facility] ?? [place] [address] ?? [phone] ----- ------- Signed (signature on file) Amy Antoine 09/23/22 1321 ? ----- ------- ? END OF REPORT ? [facility] External Provider LAB [facility] ORDERABLES Final Result [facility] [address] [place] [address] [phone] * Hepatitis C Antibody with Reflex to HCV, RNA, Quantitative, Real-Time PCR (08/27/2022 9:54 AM EDT) Pathologist [facility] Hepatitis C Antibody NON-REACT MICHAEL NON-REACT MICHAEL [facility] [employer] [facility] Comment: HCV antibody was non-reactive. There is no laboratory evidence of HCV infection. In most cases, no further action is required. However, if recent HCV exposure is suspected, a test for HCV RNA (test code 99754) is suggested. For additional information please refer to http://education.Talentag/faq/YUC19k4 (This link is being provided for informational/ educational purposes only.) Blood Venous blood specimen / Unknown 08/27/2022 9:54 AM EDT 08/27/2022 9:54 AM EDT Narrative [facility] - 09/04/2022 9:44 AM EDT FASTING:YES FASTING: YES Vivienne Alcocer HOTEL AND DINING ROOM CASHIER LAB BLOOD ORDERABLES Final Result [facility] [address] [facility], [place] [address] [employer] [address] [place] [address] * HIV-1/2 Antigen and Antibodies, Fourth Generation, with Reflexes (08/27/2022 9:54 AM EDT) Pathologist [facility] HIV Antigen/Antibody, 4th Generation NON-REAC TIVE NON-REAC TIVE [employer] [facility] [employer] [facility] Comment: HIV-1 antigen and HIV-1/HIV-2 antibodies [...] ?? For additional information please refer to http://education.BubbleNoise.NutriVentures/faq/FOS049 (This link is being provided for informational/ educational purposes only.) The performance of this assay has not been clinically validated in patients less than 2 years old. Blood Venous blood specimen / Unknown 08/27/2022 9:54 AM EDT 08/27/2022 9:54 AM EDT Narrative [facility] - 09/04/2022 9:44 AM EDT FASTING:YES FASTING: YES Viviennekarla Alcocer HOTEL AND DINING ROOM CASHIER LAB BLOOD ORDERABLES Final Result [facility] [address] [facility], [place] [address] [employer] [facility] [address] [place] [phone] from Last 3 Months or Most Recently Relevant to Health Maintenance Insurance [facility] D[facility] - HSN PARTIAL (MEDICAID) Care Teams Student Accounts Manager Relationship Specialty Start Date End Date Alvaro PABLO Padron [address] [place] [address] PCP - General Family Medicine 08/09/22
--- OUTSIDE RECORDS SUMMARY | 2024-07-02 17:30 | XMS_ITS | Encounter Summary ---
Author Organization [employer] Address [address] [place] [address] 7 [place] [address] Care Team Providers Care Project Consultant Name Role Phone Nereida John [facility] Primary Care Provider [phone] Reason for Visit * Reason Onset Date Comments Results 02/06/2024 Encounter Details Date Type Department Care Team ([facility] Contact Info) Description 02/06/2024 Telephone [facility] MEDICINE [address] [place], [place] [phone] [place], [facility] [address] [place] [address] Results Social History Tobacco Use Types Packs/Day [...] requesting status on results. Contact pt at [phone] * Telephone Encounter - Sean Stauffer - [...] results: Holter Date when done: 01/31/2024 Facility: [facility] documented in this encounter Plan of Treatment Upcoming Encounters Date Type Department Care Team (Late st Contact Info) Description 07/11/2024 9:30 AM EDT Office Visit [facility] OPTOMETRY [address] [place], [place] [phone] PabloBassamn, OD [address] [place] [address] 09/12/2024 10:30 AM EDT Office Visit [facility] MEDICINE [address] [place] [address] Nereida John FNP [address] [place] [address] 01/01/2025 10:00 AM EST Office Visit [facility] ADULT DENTAL [address] [place] [address] May Anderson documented as of this encounter Visit Diagnoses Not on filedocumented in this encounter Additional Health Concerns Assessment Noted Time PHQ-9 Depression Total Score: 13 09/04/ 024 10:38 AM EDT documented as of this encounter Care Teams Project Consultant Relationship Specialty Start Date End Date Nereida John FNP [address] [place] [address] PCP - General Family Medicine 08/09/22 documented as of this encounter
--- OUTSIDE RECORDS SUMMARY | 2024-07-02 17:30 | XMS_ITS | Encounter Summary ---
Author Organization [employer] Address [address] [place] [address] 7 [place] [address] Care Team Providers Care Card Placer Name Role Phone [facility] Primary Care Provider [phone] Reason for Visit * Reason Onset Date Comments Referral 02/02/2023 Encounter Details Date Type Department Care Team ([facility] st Contact Info) Description 02/02/2023 Telephone [facility] MEDICINE [address] [place] [address] [facility] [address] [place] [address] Referral Social History Tobacco Use Types Packs/Day [...] referral from Oct. [facility], however pt. Reports she called (number confirmed) and they told her they do not have psychiatry there and could not refer her for psychiatry services. Pt. Reports she would just like to f/up with [facility] at [facility], noted pt. Met with clinicians from July- [...] Description 07/11/2024 9:30 AM EDT Office Visit [facility] OPTOMETRY [address] [place] [address] Kennedi Shah, OD [address] [place] [address] 09/12/2024 10:30 AM EDT Office Visit [facility] [address] [place] [address] Nereida John FNP [address] [place] [address] 01/01/2025 10:00 AM EST Office Visit [facility] ADULT DENTAL [address] [place] [address] May Anderson documented as of this encounter Visit Diagnoses Not on filedocumented in this encounter Additional Health Concerns Assessment Noted Time PHQ-9 Depression Total Score: 0 01/08/20 11:17 AM EST documented as of this encounter Care Teams Card Placer Relationship Specialty Start Date End Date Nereida John FNP [address] [place] [address] PCP - General Family Medicine 08/09/22 documented as of this encounter
--- OUTSIDE RECORDS SUMMARY | 2024-07-02 17:30 | XMS_ITS | Encounter Summary ---
Author Organization [facility] Address [address] [place] [address] Phone Care Team Providers Care Bread Wrapper Operator Name Role Phone Brenda Berger MD Primary Care Provider [phone] Encounter Details Date Type Department Care Team (Late st Contact Info) Description 04/21/2011 Documentation [facility] [place] [address] [place] [address] Family Medicine, Physician [address] [place], [place] [phone] Social History Tobacco Use Types Packs/Day Years [...] on filedocumented in this encounter Care Teams Bread Wrapper Operator Relationship Specialty Start Date End Date Brenda Berger MD [address] [place] [address] [place] [address] PCP - General 10/08/16 08/19/22 documented as of this encounter
--- OUTSIDE RECORDS SUMMARY | 2024-07-02 17:30 | XMS_ITS | Encounter Summary ---
Author Organization [facility] Address [address] [place] [address] Phone Care Team Providers Care Upholsterer Apprentice Name Role Phone Brenda Berger MD Primary Care Provider [phone] Encounter Details Date Type Department Care Team (Late st Contact Info) Description 12/29/2010 Documentation [facility] [place] [address] [place] [address] Family Medicine, Physician [address] [place], [place] [phone] Social History Tobacco Use Types Packs/Day Years [...] on filedocumented in this encounter Care Teams Upholsterer Apprentice Relationship Specialty Start Date End Date Brenda Berger MD [address] [place] [address] [place] [address] PCP - General 10/08/16 08/19/22 documented as of this encounter
--- OUTSIDE RECORDS SUMMARY | 2024-07-02 17:30 | XMS_ITS | Clinical Summary ---
Author Organization [facility] Address [address] [place] [address] Phone Care Team Providers Care Toolmaker Grade Three Name Role Phone Unavailable Primary Care Provider [...]
--- OUTSIDE RECORDS SUMMARY | 2024-07-02 17:30 | XMS_ITS | Encounter Summary ---
Author Organization [employer] Address [address] [place] [address] 7 [place] [address] Care Team Providers Care Liquor Maker Name Role Phone [facility] Primary Care Provider [phone] Reason for Visit * Reason Comments Med Refill Encounter Details Date Type Department Care Team ([facility] st Contact Info) Description 07/26/2023 Refill [facility] MEDICINE [address] [place], [place] [phone] [facility] 230 [place] [address] Class 2 obesity due to excess calories [...] Description 07/11/2024 9:30 AM EDT Office Visit [facility] OPTOMETRY [address] [place] [address] PabloKennedi abebe, OD 230 [place] [address] 09/12/2024 10:30 AM EDT Office Visit [facility] MEDICINE 230 [place] [address] [facility] 230 [place] [address] 01/01/2025 10:00 AM EST Office Visit [facility] ADULT DENTAL 230 [place] [address] May Anderson documented as of this encounter Visit Diagnoses Diagnosis Class 2 obesity due to excess calories without serious comorbidity with body mass index (BMI) of 39.0 to 39.9 in adult documented in this encounter Additional Health Concerns Assessment Noted Time PHQ-9 Depression Total Score: 10 023 2:38 PM EST documented as of this encounter Care Teams Liquor Maker Relationship Specialty Start Date End Date Nereida John FNP 230 [place] [address] PCP - General Family Medicine 6/12/23 documented as of this encounter
--- OUTSIDE RECORDS SUMMARY | 2024-07-02 17:30 | XMS_ITS | Encounter Summary ---
Author Organization [facility] Address [address] [place] [address] Phone Care Team Providers Care Pit Hand Name Role Phone Brenda Berger MD Primary Care Provider [phone] Encounter Details Date Type Department Care Team (Late st Contact Info) Description 04/27/2011 Documentation [facility] [place] Family Medicine [address] [place] [address] Family Medicine, Physician [address] [place], [place] [phone] Social History Tobacco Use Types Packs/Day Years [...] on filedocumented in this encounter Care Teams Pit Hand Relationship Specialty Start Date End Date Brenda Berger MD [address] [place] [address] [place] [address] PCP - General 10/08/16 08/19/22 documented as of this encounter
--- OUTSIDE RECORDS SUMMARY | 2024-07-02 17:30 | XMS_ITS | Encounter Summary ---
Author Organization [facility] Address [address] [place] [address] Phone Care Team Providers Care Crate Builder Name Role Phone Brenda Berger MD Primary Care Provider [phone] Encounter Details Date Type Department Care Team (Late st Contact Info) Description 12/28/2010 Documentation [facility] [place] Family Medicine [address] [place] [address] Family Medicine, Physician [address] [place], [place] [phone] Social History Tobacco Use Types Packs/Day Years [...] on filedocumented in this encounter Care Teams Crate Builder Relationship Specialty Start Date End Date Brenda Berger MD [address] [place] [address] [place] [address] PCP - General 10/08/16 08/19/22 documented as of this encounter
--- OUTSIDE RECORDS SUMMARY | 2024-07-02 17:30 | XMS_ITS | Encounter Summary ---
Author Organization [facility] Address [address] [place] [address] Phone Care Team Providers Care Hairspring Inspector Name Role Phone Brenda Berger MD Primary Care Provider [phone] Encounter Details Date Type Department Care Team (Late st Contact Info) Description 12/28/2010 Documentation [facility] [place] Family Medicine [address] [place] [address] Family Medicine, Physician [address] [place], [place] [phone] Social History Tobacco Use Types Packs/Day Years [...] on filedocumented in this encounter Care Teams Hairspring Inspector Relationship Specialty Start Date End Date Brenda Berger MD [address] [place] [address] [place] [address] PCP - General 10/08/16 08/19/22 documented as of this encounter
--- OUTSIDE RECORDS SUMMARY | 2024-07-02 17:30 | XMS_ITS | Encounter Summary ---
Author Organization [facility] Address [address] [place] [address] Phone Care Team Providers Care Training Administrator Name Role Phone Brenda Berger MD Primary Care Provider [phone] Encounter Details Date Type Department Care Team (Late st Contact Info) Description 12/28/2010 Documentation [facility] [place] [address] [place] [address] Family Medicine, Physician [address] [place], [place] [phone] Social History Tobacco Use Types Packs/Day Years [...] on filedocumented in this encounter Care Teams Training Administrator Relationship Specialty Start Date End Date Brenda Berger MD [address] [place] [address] TC [place]e [address] PCP - General 10/08/16 08/19/22 documented as of this encounter
--- OUTSIDE RECORDS SUMMARY | 2024-07-02 17:30 | XMS_ITS | Encounter Summary ---
Author Organization [employer] Address [address] [facility] 7t [place] [address] Care Team Providers Care Food And Beverage Director Name Role Phone Nereida John VENEER TAPING MACHINE OPERATOR Primary Care Provider [phone] Encounter Details Date Type Department Care Team [...] Description 07/11/2024 9:30 AM EDT Office Visit [facility] OPTOMETRY [address] [place] [address] PabloKennedi, OD 230 [place] [address] 09/12/2024 10:30 AM EDT Office Visit [facility] MEDICINE 230 [place] [address] Nereida John FNP 230 [place] [address] 01/01/2025 10:00 AM EST Office Visit [facility] ADULT DENTAL 230 [place] [address] May Anderson documented as of this encounter Visit Diagnoses Not on filedocumented in this encounter Additional Health Concerns Assessment Noted Time PHQ-9 Depression Total Score: 13 024 10:38 AM EDT documented as of this encounter Care Teams Food And Beverage Director Relationship Specialty Start Date End Date Nereida John FNP 230 [place] [address] PCP - General Family Medicine 08/09/22 documented as of this encounter
--- OUTSIDE RECORDS SUMMARY | 2024-07-02 17:30 | XMS_ITS | Encounter Summary ---
Author Organization [facility] Address [address] [place] [address] Phone Care Team Providers Care Worship Pastor Name Role Phone Brenda Berger MD Primary Care Provider [phone] Encounter Details Date Type Department Care Team (Late st Contact Info) Description 10/14/2016 Conversion Encounter [facility] [place] [address] [place] [address] Social History Tobacco Use Types Packs/Day Years [...] on filedocumented in this encounter Care Teams Worship Pastor Relationship Specialty Start Date End Date Brenda Berger MD [address] [place] [address] PCP - General 10/08/16 08/19/22 documented as of this encounter
--- OUTSIDE RECORDS SUMMARY | 2024-07-02 17:30 | XMS_ITS | Encounter Summary ---
Author Organization [employer] Address [address] [facility] 7t [place] [address] Care Team Providers Care Java J2Ee Architect Name Role Phone Nereida John DREDGE BOAT ENGINEER Primary Care Provider [phone] Reason for Visit * Reason Comments Cough Fever Encounter Details Date Type Department Care Team ([facility] st Contact Info) Description 06/27/2024 9:40 AM EDT Office Visit [facility] WALK-IN CENTER 230 [place] [address] Christoph Crespo MD [address] [place] [address] Strep pharyngitis Social History Tobacco Use Types [...] clinic today. LMP=06/19 Never smoked. 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 Patient Active Problem List Diagnosis Allergic rhinitis [...] videos and all your education online visit, [email or web address] or scan this QR code with your [...] Follow these instructions at home: Medicines Take skid-mkg-sgozojb and prescription medicines only as told by [...] Reviewed: 2021-06-09 Elsevier Patient Education ? 2024 [employer] documented in this encounter Plan of Treatment Upcoming Encounters Date Type Department Care Team (Late st Contact Info) Description 07/11/2024 9:30 AM EDT Office Visit [facility] OPTOMETRY [address] [place] [address] Pablo, Kennedi, OD 230 [place] [address] 09/12/2024 10:30 AM EDT Office Visit [facility] MEDICINE 230 [place] [address] Hersey, Nereida, DREDGE BOAT ENGINEER [address] [place] [address] 01/01/2025 10:00 AM EST Office Visit [facility] ADULT DENTAL [address] [place] [address] May Anderson documented as of this encounter [...] NOW Rapid Molecular) (06/27/2024 9:49 AM EDT) [facility] Influenza A Negative Negative, Indeterminate [facility] Swab 06/27/2024 9:49 AM EDT us Christoph Crespo MD POINT OF CARE TEST ENTER/EDIT OR DERABLES Final Result Performing Organization Address [facility]/ZIP Co de Phone Number [facility] [address] [place] [phone] * Influenza B (ID NOW Rapid Molecular) (06/27/2024 9:49 AM EDT) [facility] Influenza B Negative Negative, Indeterminate [facility] Swab 06/27/2024 9:49 AM EDT us Christoph Crespo MD POINT OF CARE TEST ENTER/EDIT OR DERABLES Final Result Performing Organization Address [facility] Co de Phone Number [facility] [address] [place] [phone] * (ABNORMAL) POCT rapid strep A manually resulted (06/27/2024 9:30 AM EDT) [facility] Rapid Strep A Screen Positive( A) Negative, None Detected Swab 06/27/2024 9:30 AM EDT us Christoph Crespo MD POINT OF CARE TEST ENTER/EDIT OR DERABLES Final Result * POCT Rapid COVID Ag (06/27/2024 9:30 AM EDT) [facility] Rapid COVID Ag Negative Swab 06/27/2024 [...] documented as of this encounter Care Teams Java J2Ee Architect Relationship Specialty Start Date End Date Nereida John FNP [address] [place] [address] PCP - General Family Medicine 08/09/22 documented as of this encounter
--- OUTSIDE RECORDS SUMMARY | 2024-07-02 17:30 | XMS_ITS | Clinical Summary ---
Author Organization [facility] it Address [address] [place] [address] Care Team Providers Care Marketing Rotation Associate Name Role Phone Kel Burnham MD Primary [...] RESULTING AGENCY - 04/03/2018 3:25 PM EST [id number] THINPREP PAP, IMAGED: NEGATIVE FOR SQUAMOUS INTRAEPITHELIAL [...] Recently Relevant to Health Maintenance Care Teams Marketing Rotation Associate Relationship Specialty Start Date End Date Kel Burnham MD [address] [place] [phone] PCP - General Internal Medicine 03/30/18
--- OUTSIDE RECORDS SUMMARY | 2024-07-02 17:30 | XMS_ITS | Encounter Summary ---
Author Organization [employer] Address [address] [place] [address] [place] [address] Care Team Providers Care Geothermal Heat Pump Machinist Name Role Phone Vivienne Alcocer [facility] Primary Care Provider [phone] [facility] Primary Care Provider [phone] Reason for Visit * Reason Onset Date Comments Appointment Request 05/21/2022 Encounter Details Date Type Department Care Team (Late st Contact Info) Description 05/21/2022 Telephone [facility] MEDICINE [address] [place] [address] Vivienne Alcocer, [address] Dept [place] [address] Appointment Request Social History Tobacco Use Types [...] appt regarding for some blood work her piece meat trimmer recommended her to get. Pt states she needs a blood glucose work done. Please contact pt at [phone] documented in this encounter Plan of Treatment Upcoming Encounters Date Type Department Care Team (Late st Contact Info) Description 07/11/2024 9:30 AM EDT Office Visit [facility] OPTOMETRY [address] [place] [address] PabloBassam abeben, OD 230 [place] [address] 09/12/2024 10:30 AM EDT Office Visit [facility] MEDICINE [address] [place] [address] Nereida John FNP [address] [place] [address] 01/01/2025 10:00 AM EST Office Visit [facility] ADULT DENTAL [address] [place] [address] May Anderson documented as of this encounter Visit Diagnoses Not on filedocumented in this encounter Care Teams Geothermal Heat Pump Machinist Relationship Specialty Start Date End Date Vivienne Alcocer FNP PCP - General Family Medicine 10/28/21 08/08/22 Nereida John FNP [address] [place] [address] PCP - General Family Medicine 08/09/22 documented as of this encounter
--- OUTSIDE RECORDS SUMMARY | 2024-07-02 17:30 | XMS_ITS | Encounter Summary ---
Author Organization [facility] Address [address] [place] [address] Phone Care Team Providers Care Oracle Database Architect Name Role Phone Brenda Berger MD Primary Care Provider [phone] Encounter Details Date Type Department Care Team (Late st Contact Info) Description 12/29/2010 Documentation [facility] [place] Family Medicine [address] [place] [address] Family Medicine, Physician [address] [place], [place] [phone] Social History Tobacco Use Types Packs/Day Years [...] on filedocumented in this encounter Care Teams Oracle Database Architect Relationship Specialty Start Date End Date Brenda Berger MD [address] [place] [address] TC [place]e [address] PCP - General 10/08/16 08/19/22 documented as of this encounter
[2024-07-02 21:03] LABS: Bacterial Vaginosis PCR NEGATIVE (Negative); Candida Group PCR NOT DETECTED (Not Detect); Candida glab krusei PCR NOT DETECTED (Not Detect); Trichomonas vaginalis PCR NOT DETECTED (Not Detect)
[2024-07-02 21:48] LABS: CT PCR NOT DETECTED (Not Detect.); NG PCR NOT DETECTED (Not Detect.)
== END 2024-07-02 14:38 | disposition home or self-care (01) ==
LOC: HO.LNP 14:37
PROVIDERS: PCP Registered Nurse; Visit Provider Advanced Practice Midwife
DX: Z01.419 Encounter for gynecological examination (general) (routine) without abnormal findings (principal); Z87.59 Personal history of other complications of pregnancy, childbirth and the puerperium; E66.9 Obesity, unspecified
CPT/HCPCS: 81515; 87491; 87591; 99395; 99459

== ENCOUNTER 2024-07-02 14:37 | Outpatient (AMB) | payer OTHER, SELFPAY ==
--- NOTE | 2024-07-02 14:39 | MHC.OFFVIS ---
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 Advance Agent: Advance Agent Present ([place]) Accompanied by: Son Allergies sulfamethoxazole [From BACTRIM] Allergy (Intermediate, Verified 07/02/24 14:57) RASH trimethoprim [From BACTRIM] Allergy (Intermediate, Verified 07/02/24 14:57) RASH Medication List - Last Reconciled 07/02/24 by Carla Brooks CNM blood pressure test kit-large As directed olmesartan 5 mg PO DAILY ondansetron 4 mg PO Q6H PRN semaglutide (weight loss) (Wegovy) mg subcut sertraline 100 mg PO DAILY Is last menstrual period known: Yes Last menstrual period: 06/12/24 Post menopausal: No Patient : No HPI HPI 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 Every now and then she feels like she has got a little BV and she uses 1 boric acid capsule and it makes things better. She is doing really well working on weight loss she is on Wegovy and she has already been told that her insurance is going to switch her to Zepbound in August but for right now she is doing well with this she is trying to eat well she likes walking and bicycling for exercise she likes walking because she can take the kids with her she has a 7-year-old and her 4-year-old there was with her today. Her goal is to lose weight and get healthier and then get for 1 more. She had her last baby at [facility] because our birthing center closed and she says she did have high blood pressure and preeclampsia. She had come to us for the care and we were doing lots of more testing/and management then for pregnancies with complications. [facility] Medical History (Updated 07/02/24 @ 16:04 by Carla Brooks CNM) Fall (on) (from) other stairs and steps, initial encounter Obesity (BMI 30-39.9) Family History Mother HTN (hypertension) Maternal Grandmother Epilepsy Maternal Aunt Diabetes Brother Coloboma, congenital heart disease, choanal atresia, growth retardation, genital hypoplasia, ear and hearing anomaly (CHARGE) syndrome Sister Autism disorder Social History Household Members: Significant Other and Children Both parents involved: Yes Housing: House Alcohol intake: never Patient Tobacco Use Status: Never used Tobacco Special misty needs: No Agree to transfusion: Yes Patient : No Female Reproductive History Menstrual Age of Menarche: 12 Duration of menses: 3-5 days Date of last menstrual period: 06/12/24 control method: none Total pregnancies: 2 Full term: 2 Date of last pap smear: 09/02/22 (negative ) History of abnormal pap smear: No Physical Exam Vital Signs: Last Vital Signs BP 116/74 07/02/24 14:57 BMI result Body Mass Index 34.7 Const General: healthy appearing, comfortable, no acute distress, well developed and alert Nutritional Appearance: average body habitus Orientation/consciousness: patient oriented x3 Limitations: no limitations HEENT Head: Yes normocephalic Neck Neck: Yes normal visual inspection Chest Chest palpation & inspection: normal inspection of the chest Breast/axilla inspection: normal inspection of the breasts and normal inspection of the axillae Breast/axilla palpation: normal palpation of the breasts and normal palpation of the axillae Resp Effort & Inspection: normal respiratory effort GI Inspection: Yes normal to inspection, No Abdominal wall edema and No distended Palpation (GI): Soft to palpation and nontender Other: External exam within normal limits vagina is pink and moist there is a slightly yellowish tinge to the discharge. Cervix multiparous pink and smooth healthy appearing cervix long close thick mobile nontender uterus midposition mobile nontender adnexa nontender patient had difficulty doing a Kegel so we did discuss it. General: Yes bladder normal to palpation External Female Exam: normal external appearance and normal appearance of the urethra Speculum Exam - Vagina: normal appearance of the vagina, normal palpation and normal vaginal discharge Speculum Exam - Cervix: normal appearance of the cervix, normal palpation and nontender Bimanual exam- vagina & uterus: normal bimanual exam, normal palpation, uterine size normal, bladder normal to palpation, consistency normal, normal palpation, uterine mobility normal, uterine shape normal, No Cervical tenderness present, non-tender and no cervical motion tenderness Bimanual Exam- Adnexa, other: normal adnexae, no masses, normal and No adnexal tenderness Neuro General: patient oriented x3 Results Reviewed Results Reviewed: Name: Tea Wilson Age/Sex: 27/F Attending: Carla Brooks CNM : 1995 Submitted by: Carla Brooks CNM Copies to: [facility] MR #: [id number] Status: DEP REF Collected: 09/02/22 Location: [facility] Received: 09/07/22 Interpretation General Category: Negative for intraepithelial lesion/malignancy. Adequacy: Endocervical component present. Interpretation: Reactive cellular changes. Abundant acute inflammation. Clinical Information LMP: 08/01/22 Previous PAP test: Unknown date/findings Material Received ThinPrep-Cervical Copies To Carla Brooks CNM [address] [place] [address] Dr. Awan [address] [place] [address] [facility] [address] [place] [address] Electronically Signed By: Amy Schultz 09/23/22 1321 The Pap Test is a screening procedure with the inherent possibility of both false negative and false positive results. Results should be interpreted in the context of historic and current clinical findings. Reliability of the Pap Test is enhanced by performing the test on a regular repetitive basis. Patient: Tea Wilson Age/Sex: 27/F MR#: [id number] Page 1 of 1 Assessment & Plan Assessment & Plan (1) Well woman exam with routine gynecological exam: Code(s): Z01.419 - Encounter for gynecological examination (general) (routine) without abnormal findings Category: Medical (2) Cervical cancer screening: Comment: 09/02/2022 Pap is negative., next Pap due August of 2025... Code(s): Z12.4 - Encounter for screening for malignant neoplasm of cervix Category: Medical (3) Screen for sexually transmitted diseases: Code(s): Z11.3 - Encounter for screening for infections with a predominantly sexual mode of transmission Category: Medical (4) History of severe pre-eclampsia: Comment: Severity unclear at this writing but she was hypertensive in the and induced at 38 weeks and then had preeclampsia. Code(s): Z87.59 - Personal history of other complications of , childbirth and the puerperium Category: Medical (5) Obesity (BMI 30-39.9): Comment: Is currently losing weight with Wegovy we will be moving to Zepbound soon, encouraged to keep going with healthy eating and exercise.... Code(s): E66.9 - Obesity, unspecified Category: Medical Plan -----Discussed in this visit the following: healthy balanced diet, regular and consistent exercise, getting recommended health screens, doing the best she can for her particular health concerns, kegel exercises, pap smear screening and followup recommendations, mammography screening and SBE, normal changes in cycles in her life stage--- .Discussed in general terms the challenges of obesity and challenges for her health and efforts she is engaging in to manage this including dietary changes water intake attention to sleep inclusion of a regular exercise have it and dealing with the may need stressors of life that can contribute to obesity in general. Encouraged her to continue in all have her best efforts. The only BMI chart I could readilyfind today in the office was connected with the weight management referral , I reviewed with her where she is now and where she was at her heaviest and reviewed optimal goals to reach discussed the the more she is able to solidify good healthy eating patterns and exercise routines this will stand to her in the future and she will have incorporated all of this even as she loses weight with the benefit of the Wegovy or Zepbound. Discussed again that the goal would be not to gain a lot of weight back when she does get additionally discussed that because of her history of hypertension and preeclampsia she might be at some risk in a future for the same and if she came here for care and developed it we would then be transferring her so in the future she might want to consider starting care where she would end up delivering. But for now her goal is to keep on losing weight and the patient is looking good and feeling good and I encouraged her to really try to solidify her healthy habits and keep working on her goal and appreciate how good she feels and this will keep her going. Coding Level of Care Code Est Pt Prev Care [id number]([id number]) Diagnoses Well woman exam with routine gynecological exam Z01.419 Cervical cancer screening Z12.4 Screen for sexually transmitted diseases Z11.3 History of severe pre-eclampsia Z87.59 Obesity (BMI 30-39.9) E66.9
[2024-07-02 14:57] VITALS: BP 116/74; BMI 34.7
--- OUTSIDE RECORDS SUMMARY | 2024-07-02 16:11 | XMS_ITS | Encounter Summary ---
Author Organization [employer] Address [address] [place] [address] 7 [place] [address] Care Team Providers Care Truck Loader Overhead Crane Name Role Phone [facility] Primary Care Provider [phone] Reason for Visit * Reason Onset Date Comments Referral 02/02/2023 Encounter Details Date Type Department Care Team ([facility] st Contact Info) Description 02/02/2023 Telephone [facility] MEDICINE [address] [place] [address] [facility] [address] [place] [address] Referral Social History Tobacco Use Types Packs/Day Years Used Date Smoking Tobacco: Never Smokeless Tobacco: Never Alcohol Use Standard Drinks/Week Comments Not Currently 0 (1 standard drink = 0.6 oz pur e alcohol) Depression Answer Date Recorded Patient Health Questionnaire-9 Score 0 01/07/2023 Patient Health Questionnaire-9 Score 0 01/07/2023 Last PHQ-9: Questionnaire Data Not on file 1 03/09/2022 Housing Stability Answer Date Recorded What is your housing situation today? I have errol joy 12/27/[address] you li ve. Do you have problems with any of the following? None of the above 12/27/2022 Food Insecurity Answer Date Recorded Within the past 12 months, y ou worried that your food would run out before you got money to buy more: Never True 12/27/2022 Within the past 12 months,th e food you bought just didn't last and you didn't have enough money to get more: Never True Transportation Answer Date Recorded In the past 12 months, has l ack of transportation kept you from medical appts, meetings, work or from getting things needed for daily living? No 12/27/2022 Utilities Answer Date Recorded In the past 12 months, has t he electric, gas, oil or water company threatened to shut off services in your home? No 12/27/2022 Depression Answer Date Recorded Patient Health Questionnaire-2 Score 0 01/07/2023 Comments Unknown Sex and Gender Information Value Date Recorded Sex Assigned at Female 12/28/2021 10:22 AM EDT Legal Sex Female 10:22 AM EDT Gender Identity Female 12/28/2021 10:22 AM EDT Sexual Orientation Straight 12/28/2021 10 :22 AM EDT documented as of this encounter Miscellaneous Notes * Telephone Encounter - Holly Joy RN - 02/03/2023 10:00 AM EST Noted referral from Oct. Was sent to the [facility] for therapy, however pt. Reports she called (number confirmed) and they told her they do not have psychiatry there and could not refer her for psychiatry services. Pt. Reports she would just like to f/up with [facility] at [facility], noted pt. Met with clinicians from July- August before being referred elsewhere. Please advise of pt. Can restart services here. Advised pt. To expect a call. Thank you. * Telephone Encounter - Amelia Hernandez - 02/02/2023 1:18 PM EST Tc from pt states referral was sent to location for physical therapy. Pt would like referral to be psychiatry documented in this encounter Plan of Treatment Upcoming Encounters Date Type Department Care Team (Late st Contact Info) Description 07/11/2024 9:30 AM EDT Office Visit [facility] OPTOMETRY [address] [place] [address] Kennedi Shah, OD [address] [place] [address] 09/12/2024 10:30 AM EDT Office Visit [facility] [address] [place] [address] Nereida John FNP [address] [place] [address] 01/01/2025 10:00 AM EST Office Visit [facility] ADULT DENTAL [address] [place] [address] May Anderson documented as of this encounter Visit Diagnoses Not on filedocumented in this encounter Additional Health Concerns Assessment Noted Time PHQ-9 Depression Total Score: 0 01/08/20 11:17 AM EST documented as of this encounter Care Teams Truck Loader Overhead Crane Relationship Specialty Start Date End Date Nereida John FNP [address] [place] [address] PCP - General Family Medicine 08/09/22 documented as of this encounter
--- OUTSIDE RECORDS SUMMARY | 2024-07-02 16:11 | XMS_ITS | Encounter Summary ---
Author Organization [employer] Address [address] [place] [address] 7 [place] [address] Care Team Providers Care Director Of Purchasing Name Role Phone [place] [facility] Primary Care Provider [phone] Reason for Visit * Reason Onset Date Comments Nurse Triage 01/31/2023 Encounter Details Date Type Department Care Team ([facility] st Contact Info) Description 01/31/2023 Telephone [facility] MEDICINE [address] [place] [address] [facility] [address] [place] [address] Nurse Triage Social History Tobacco Use Types Packs/Day Years [...] encounter Miscellaneous Notes * Telephone Encounter - Lisa Colon RN - 01/31/2023 4:56 PM EST Triage call Pt reports some increased anxiety/panic attacks just in the last couple of days. Pt reports that the only thing different was drinking soda prior to the increased anxiety. Pt reports the neg thoughts, racing of heart and the accompanying symptoms occur. Pt has talked with PCP regarding this and has been managing without medications. Pt requests to only speak with PCP because Pt has talked with PCP regarding the cause for the symptoms and doesn't want to speak with anyone else. Pt agrees with disposition. Apt with PCP [place] 02/11/23 @ 330pm. Pt is offered the [facility] today but, doesn't want to talk with anyone else about this anxiety. Pt will come to [facility] if becomes more uncomfortable and needs help but, other wilson will wait for scheduled apt. Insurance is verified as active prior to booking. Protocol Used: Anxiety and Panic Attack (Adult) Protocol-Based Disposition: See in Office or Video Visit within 2 Weeks Video visit not offered Positive Triage Question: * Symptoms of anxiety or panic attack and is a chronic symptom (recurrent or ongoing AND present > 4 weeks) * All higher-acuity triage questions were negative Care Advice Discussed: * Note to Triager - Anxiety Symptoms * Reassurance and Education - Anxiety * Anxiety - Healthy Lifestyle Tips * Avoid Caffeine * Avoid Triggers of Anxiety * Stress Reduction * Reasons To Call Back - Anxiety or panic attacks continue - You feel like harming yourself - You become worse * Note to Triager - How to Help a Patient During a Panic Attack * Anxiety - Healthy Lifestyle Tips * Avoid Caffeine * Avoid Triggers of Anxiety * Reasons To Call Back - Anxiety or panic attacks continue - You feel like harming yourself - You become worse * Telephone Encounter - Ximenafausto Pa Murillo - 01/31/2023 4:04 PM EST Symptom: Anxiety or Panic Attack Outcome: Schedule an urgent appointment (within 4 hours) or talk to a nurse or provider soon Reason: Anxiety keeps from normal daily activities (such as school or work) The caller accepted this outcome Please Contact pt at [phone] documented in this encounter Plan of Treatment Upcoming Encounters Date Type Department Care Team (Late st Contact Info) Description 07/11/2024 9:30 AM EDT Office Visit [facility] OPTOMETRY [address] [place] [address] Kennedi Shah, OD [address] [place] [address] 09/12/2024 10:30 AM EDT Office Visit [facility] MEDICINE [address] [place] [address] [facility] [address] [place] [address] 01/01/2025 10:00 AM EST Office Visit [facility] ADULT DENTAL [address] [place] [address] May Anderson documented as of this encounter Visit Diagnoses Not on filedocumented in this encounter Additional Health Concerns Assessment Noted Time PHQ-9 Depression Total Score: 0 01/08/20 23 11:17 AM EST documented as of this encounter Care Teams Director Of Purchasing Relationship Specialty Start Date End Date [facility] [address] [place] [address] PCP - General Family Medicine 08/09/22 documented as of this encounter
--- OUTSIDE RECORDS SUMMARY | 2024-07-02 16:11 | XMS_ITS | Encounter Summary ---
Author Organization [employer] Address [address] [facility] [address] [place] [address] Care Team Providers Care Finish Mixer Name Role Phone [facility] Primary Care Provider [phone] Reason for Visit * Reason Onset Date Comments Medication Question 08/11/2022 escitalopram (Lexapro) 10 MG tablet Vitamin Deficiency 08/11/2022 Pt walk in re questing to speak to pcp regarding medication escitalopram (Lexapro) 10 MG tablet ,she wants to know if that medication helps with OCD . Pt will like for her PCP to give her a call . Encounter Details Date Type Department Care Team ([facility] Contact Info) Description 08/11/2022 Telephone [facility] MEDICINE [address] [place], [place] [phone] [facility] [address] [place], [place] [id number] Medication Question (escitalopram (Lexapro) 10 MG tablet); Vitamin Deficiency (Pt walk in requesting to speak to pcp regarding medication escitalopram (Lexapro) 10 MG tablet ,she wants to know if that medication helps with OCD . Pt will like for her PCP to give her a call .) Social History Tobacco Use Types Packs/Day Years Used Date Smoking Tobacco: Never Smokeless Tobacco: Never Alcohol Use Standard Drinks/Week Comments Not Currently 0 (1 standard drink = 0.6 oz pur e alcohol) Comments Unknown Sex and Gender Information Value Date Recorded Sex Assigned at Female 12/28/2021 10:22 AM EDT Legal Sex Female 10:22 AM EDT Gender Identity Female 12/28/2021 10:22 AM EDT Sexual Orientation Straight 12/28/2021 10 :22 AM EDT COVID-19 Exposure Response Date Recorded In the last 10 days, have yo u been in contact with someone who was confirmed or suspected to have Coronavirus/COVID-19? No / Unsure 08/09/2022 10:39 AM EDT documented as of this encounter Miscellaneous Notes * Telephone Encounter - Antoine Beth RN - 08/20/2022 1:53 PM EDT T/C to pt. For below message, pt. Verbally agreed and understood. Pt. Has upcoming apt. On 08/27 , pt. States she is going to keep this apt. And discussed further on day of apt. * Telephone Encounter - Antoine Beth RN - 08/13/2022 10:44 AM EDT T/C to [phone] for below message, Pt. States she is having question for medication she is taking, Escitalopram 10 mg, pt. Has OCD and wants to know if this medication will help for her OCD? Pt. Also wants to speak with provider regarding medication Escitalopram 10 mg. pt. Advised this message will be sent to provider for review. Please review and advise. * Telephone Encounter - Cynthia Shirley - 08/12/2022 2:22 PM EDT Pt walk in requesting to speak to pcp regarding medication escitalopram (Lexapro) 10 MG tablet ,shewants to know if that medication helps with OCD . Pt will like for her PCP to give her a call . * Telephone Encounter - Antoine Beth RN - 08/11/2022 4:47 PM EDT Return T/C to [phone] for below message, No answer, LVM to call back on [phone]. * Telephone Encounter - Ann Mckeon - 08/11/2022 3:03 PM EDT Tc from patient calling in regards to medication question for escitalopram (Lexapro) 10 MG tablet. documented in this encounter Plan of Treatment Upcoming Encounters Date Type Department Care Team (Late st Contact Info) Description 07/11/2024 9:30 AM EDT Office Visit [facility] OPTOMETRY [address] [place] [address] Kennedi Shah, OD [address] [place] [address] 09/12/2024 10:30 AM EDT Office Visit [facility] MEDICINE [address] [place] [address] Nereida John FNP [address] [place] [address] 01/01/2025 10:00 AM EST Office Visit [facility] ADULT DENTAL [address] [place] [address] May Anderson documented as of this encounter Visit Diagnoses Not on filedocumented in this encounter Additional Health Concerns Assessment Noted Time PHQ-9 Depression Total Score: 5 08/04/19 23 2:45 PM EDT documented as of this encounter Care Teams Finish Mixer Relationship Specialty Start Date End Date Nereida John FNP [address] [place] [address] PCP - General Family Medicine 08/09/22 documented as of this encounter
--- OUTSIDE RECORDS SUMMARY | 2024-07-02 16:11 | XMS_ITS | Encounter Summary ---
Author Organization [employer] Address [address] [facility] [address] [place] [address] Care Team Providers Care Digital Librarian Name Role Phone Nereida John CIGAR PATCHER Primary Care Provider [phone] Reason for Visit * Reason Comments Cough Fever Encounter Details Date Type Department Care Team ([facility] st Contact Info) Description 06/27/2024 9:40 AM EDT Office Visit [facility] [address] [place] [address] Christoph Crespo MD [address] [place] [address] Strep pharyngitis Social History Tobacco Use Types Packs/Day Years Used Date Smoking Tobacco: Never Smokeless Tobacco: Never Tobacco Cessation:Counseling Given: Not Answered Alcohol Use Standard Drinks/Week Comments Not Currently 0 (1 standard drink = 0.6 oz pur e alcohol) Depression Answer Date Recorded Patient Health Questionnaire-9 Score 13 09/05/2023 Patient Health Questionnaire-9 Score 13 09/05/2023 Last PHQ-9: Questionnaire Data Not on file 0 09/05/2023 Housing Stability Answer Date Recorded What is [...] Answer Date Recorded Patient Health Questionnaire-2 Score 4 09/05/2023 Internet Access Answer Date Recorded Internet Access Q1 Yes 01/04/2024 Internet Access Q2 Not on file 01/04/2024 Comments No Sex and Gender Information Value Date Recorded Sex Assigned at Female 12/28/2021 10:22 AM EDT Legal Sex Female 10:22 AM EDT Gender Identity Female 12/28/2021 10:22 AM EDT Sexual Orientation Straight 12/28/2021 10 :22 AM EDT documented as of this encounter Last Filed Vital Signs Vital Sign Reading Time Taken Comments Blood Pressure 122/79 06/27/2024 9:24 AM EDT Pulse 104 06/27/2024 9:24 AM EDT Temperature 37.8 ??C (100 ??F) 06/27/2024 9:24 AM EDT Respiratory Rate 16 06/27/2024 9:24 AM EDT Oxygen Saturation 97% 06/27/2024 9:24 AM EDT Inhaled Oxygen Concentration - - Weight 90.5 kg (199 lb 9.6 oz) 06/27/2024 9:24 A M EDT Height 160 cm (5' 3 ) 06/27/2024 9:24 AM EDT Body Mass Index 35.36 06/27/2024 9:24 AM EDT documented in this encounter Progress Notes * Christoph Crespo MD - 06/27/2024 9:40 AM EDT Subjective Patient ID: Tea Wilson is a 28 y.o. female. HPI Yest Lynn had onset of headache, sore throat, nausea, tactile fever. No vomiting or shortness of breath. Able to take p.o. Took Tylenol yesterday. Lives with fiancee and 2 children. Her 3-year-old son had positive rapid strep test in walk-in clinic today. LMP=06/19 Never smoked. 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 Patient Active Problem List Diagnosis Allergic rhinitis Mixed anxiety and depressive disorder Binge eating disorder Dental abscess Dental plaque Essential hypertension Combined hyperlipidemia Poison chavo dermatitis Healthcare maintenance Missing teeth, acquired Tooth sensitivity The following portions of the chart were reviewed this encounter and updated as appropriate: Tobacco Allergies Meds Problems Med Hx Surg Hx Fam Hx Review of Systems Constitutional: Positive for fever. HENT: Positive for sore throat. Respiratory: Negative for shortness of breath. Cardiovascular: Negative for chest pain. Gastrointestinal: Positive for nausea. Negative for abdominal pain and vomiting. Skin: Negative for rash. Neurological: Positive for headaches. Objective Physical Exam Constitutional: Appearance: Normal appearance. HENT: Right Ear: Tympanic membrane, ear canal and external ear normal. Left Ear: Tympanic membrane, ear canal and external ear normal. Nose: Nose normal. Mouth/Throat: Mouth: Mucous membranes are moist. Pharynx: Oropharynx is clear. Uvula midline. Posterior oropharyngeal erythema present. Tonsils: No tonsillar exudate or tonsillar abscesses. Eyes: Conjunctiva/sclera: Conjunctivae normal. Pupils: Pupils are equal, round, and reactive to light. Cardiovascular: Rate and Rhythm: Normal rate and regular rhythm. Heart sounds: No murmur heard. Pulmonary: Effort: Pulmonary effort is normal. Breath sounds: Normal breath sounds. Musculoskeletal: General: Normal range of motion. Cervical back: No tenderness. Skin: Findings: No rash. Neurological: Mental Status: She is alert. Gait: Gait is intact. Psychiatric: Mood and Affect: Mood normal. Behavior: Behavior normal. Procedures Assessment/Plan Diagnoses and all orders for this visit: Strep pharyngitis Positive rapid strep test. Negative rapid COVID and flu tests. Prescribed penicillin V, acetaminophen, ibuprofen. Drink lots of liquids. Given written strep pharyngitis instructions. Return to clinic if not improving. - Influenza B (ID NOW Rapid Molecular) - Influenza A (ID NOW Rapid Molecular) - POCT Rapid COVID Ag - POCT rapid strep A manually resulted Other orders - penicillin v potassium (Veetid) 500 MG tablet; Take 1 tablet (500 mg) by mouth 2 times daily for 10 days. - acetaminophen (Tylenol) 500 MG tablet; Take 2 tablets (1,000 mg) by mouth every 6 (six) hours if needed for moderate pain or fever for up to 25 doses. - ibuprofen 400 MG tablet; Take 1 tablet (400 mg) by mouth every 6 (six) hours if needed for moderate pain or fever for up to 30 doses. documented in this encounter Miscellaneous Notes * Patient Education Note - Christoph Crespo MD - 06/27/2024 2:01 PM EDT Images from the original note were not included. Patient Education Table of Contents Strep Throat, Adult To view videos and all your education online visit, [email or web address] or scan this QR code with your smartphone. Access to this content will in one year. Strep Throat, Adult Strep throat is an infection of the throat. It is caused by germs (bacteria). Strep throat is common during the cold months of the year. It mostly affects children who are 5?15 years old. However, people of all ages can get it at any time of the year. This infection spreads from person to person through coughing, sneezing, or having close contact. What are the causes? This condition is caused by the Streptococcus pyogenes germ. What increases the risk? You care for young children. Children are more likely to get strep throat and may spread it to others. You go to crowded places. Germs can spread easily in such places. You kiss or touch someone who has strep throat. What are the signs or symptoms? Fever or chills. Redness, swelling, or pain in the tonsils or throat. Pain or trouble when swallowing. White or yellow spots on the tonsils or throat. Tender glands in the neck and under the jaw. Bad breath. Red rash all over the body. This is rare. How is this treated? Medicines that kill germs (antibiotics). Medicines that treat pain or fever. These include: ? Ibuprofen or acetaminophen. ? Aspirin, only for people who are over the age of 18. ? Cough drops. ? Throat sprays. Follow these instructions at home: Medicines Take [id number] and prescription medicines only as told by your doctor. Take your antibiotic medicine as told by your doctor. Do not stop taking the antibiotic even if youstart to feel better. Eating and drinking If you have trouble swallowing, eat soft foods until your throat feels better. Drink enough fluid to keep your pee (urine) pale yellow. To help with pain, you may have: ? Warm fluids, such as soup and tea. ? Cold fluids, such as frozen desserts or popsicles. General instructions Rinse your mouth (gargle) with a salt-water mixture 3?4 times a day or as needed. To make a salt-water mixture, dissolve ??1 tsp (3?6 g) of salt in 1 cup (237 mL) of warm water. Rest as much as you can. Stay home from work or school until you have been taking antibiotics for 24 hours. Do not smoke or use any products that contain nicotine or tobacco. If you need help quitting, ask your doctor. Keep all follow-up visits. How is this prevented? Do not share food, drinking cups, or personal items. They can cause the germs to spread. Wash your hands well with soap and water. Make sure that all people in your house wash their hands well. Have family members tested if they have a fever or a sore throat. They may need an antibiotic if they have strep throat. Contact a doctor if: You have swelling in your neck that keeps getting bigger. You get a rash, cough, or earache. You cough up a thick fluid that is green, yellow-brown, or bloody. You have pain that does not get better with medicine. Your symptoms get worse instead of getting better. You have a fever. Get help right away if: You vomit. You have a very bad headache. Your neck hurts or feels stiff. You have chest pain or are short of breath. You have drooling, very bad throat pain, or changes in your voice. Your neck is swollen, or the skin gets red and tender. Your mouth is dry, or you are peeing less than normal. You keep feeling more tired or have trouble waking up. Your joints are red or painful. These symptoms may be an emergency. Do not wait to see if the symptoms will go away. Get help rightaway. Call your local emergency services (911 in the [place] Summary Strep throat is an infection of the throat. It is caused by germs (bacteria). This infection can spread from person to person through coughing, sneezing, or having close contact. Take your medicines, including antibiotics, as told by your doctor. Do not stop taking the antibiotic even if you start to feel better. To prevent the spread of germs, wash your hands well with soap and water. Have others do the same. Do not share food, drinking cups, or personal items. Get help right away if you have a bad headache, chest pain, shortness of breath, a stiff or painfulneck, or you vomit. This information is not intended to replace advice given to you by your health care provider. Make sure you discuss any questions you have with your health care provider. Document Released: 2008-08-02 Document Updated: 2021-06-09 Document Reviewed: 2021-06-09 Elsevier Patient Education ? 2024 [employer] documented in this encounter Plan of Treatment Upcoming Encounters Date Type Department Care Team (Late st Contact Info) Description 07/11/2024 9:30 AM EDT Office Visit [facility] [address] [place] [address] Pablo, Kennedi, OD [address] [place] [address] 09/12/2024 10:30 AM EDT Office Visit [facility] [address] [place] [address] [place], Nereida, CIGAR PATCHER [address] [place] [address] 01/01/2025 10:00 AM EST Office Visit [facility] [address] [place] [address] May Anderson documented as of this encounter Procedures Procedure Name Priority Date/Time Associated Diagnosis Comments POCT INFLUENZA B (ID NOW RAPID MOLECULAR) Routine 06/27/2024 9:49 AM EDT Strep pharyngitis POCT INFLUENZA A (ID NOW RAPID MOLECULAR) Routine 06/27/2024 9:49 AM EDT Strep pharyngitis POCT RAPID COVID ANTIGEN Routine 06/27/2024 9:30 AM EDT Strep pharyngitis POCT RAPID STREP A Routine 06/27/2024 9: 30 AM EDT Strep pharyngitis documented in this encounter Results * Influenza A (ID NOW Rapid Molecular) (06/27/2024 9:49 AM EDT) [facility] Influenza A Negative Negative, Indeterminate [facility] Swab 06/27/2024 9:49 AM EDT us Christoph Crespo MD POINT OF CARE TEST ENTER/EDIT OR DERABLES Final Result Performing Organization Address [facility]/ZIP Co de Phone Number [facility] [address] [place] [phone] * Influenza B (ID NOW Rapid Molecular) (06/27/2024 9:49 AM EDT) [facility] Influenza B Negative Negative, Indeterminate [facility] Swab 06/27/2024 9:49 AM EDT us Christoph Crespo MD POINT OF CARE TEST ENTER/EDIT OR DERABLES Final Result Performing Organization Address [facility] Co de Phone Number [facility] [address] [place] [phone] * (ABNORMAL) POCT rapid strep A manually resulted (06/27/2024 9:30 AM EDT) [facility] Rapid Strep A Screen Positive( A) Negative, None Detected Swab 06/27/2024 9:30 AM EDT us Christoph Crespo MD POINT OF CARE TEST ENTER/EDIT OR DERABLES Final Result * POCT Rapid COVID Ag (06/27/2024 9:30 AM EDT) [facility] Rapid COVID Ag Negative Swab 06/27/2024 9:30 AM EDT us Christoph Crespo MD POINT OF CARE TEST ENTER/EDIT OR DERABLES Final Result documented in this encounter Visit Diagnoses Diagnosis Strep pharyngitis documented in this encounter Administered Medications Inactive Administered Medications - up to 3 most recent administrations Medication Order MAR Action Action Date Dose Rate Site ibuprofen tablet 800 mg 800 mg, Oral, Once, On Tue06/27/24 at 1015, For 1 doseIndications:Strep pharyngitis Given 06/27/2024 10:15 AM EDT 800 mg documented in this encounter Additional Health Concerns Assessment Noted Time PHQ-9 Depression Total Score: 13 024 10:38 AM EDT documented as of this encounter Care Teams Digital Librarian Relationship Specialty Start Date End Date Nereida John FNP [address] [place] [id number] PCP - General Family Medicine 08/09/22 documented as of this encounter
--- OUTSIDE RECORDS SUMMARY | 2024-07-02 16:11 | XMS_ITS | Encounter Summary ---
Author Organization [employer] Address [address] [place] [address] Care Team Providers Care Double Head Machine Operator Name Role Phone [facility] Primary Care Provider [phone] Reason for Visit * Reason Onset Date Comments Medication Question 10/20/2022 Encounter Details Date Type Department Care Team ([facility] st Contact Info) Description 10/20/2022 Telephone [facility] [address] [place] [address] [facility] [address] [place] [address] Medication Question Social History Tobacco Use Types Packs/Day Years Used Date Smoking Tobacco: Never Smokeless Tobacco: Never Alcohol Use Standard Drinks/Week Comments Not Currently 0 (1 standard drink = 0.6 oz pur e alcohol) Depression Answer Date Recorded Patient Health Questionnaire-9 Score 9 09/08/2022 Depression Answer Date Recorded Patient Health Questionnaire-2 Score 0 09/14/2022 Comments Unknown Sex and Gender Information Value Date Recorded Sex Assigned at Female 12/28/2021 10:22 AM EDT Legal Sex Female 10:22 AM EDT Gender Identity Female 12/28/2021 10:22 AM EDT Sexual Orientation Straight 12/28/2021 10 :22 AM EDT documented as of this encounter Miscellaneous Notes * Telephone Encounter - Amelia Hernandez - 10/20/2022 12:18 PM EDT Tc from pt requesting a call in regards to upping the dosage on sertraline (Zoloft) 25 MG tablet Please contact pt at [phone] documented in this encounter Plan of Treatment Upcoming Encounters Date Type Department Care Team (Late st Contact Info) Description 07/11/2024 9:30 AM EDT Office Visit [facility] OPT[facility]ET[facility] [address] [place] [address] Kennedi Shah, OD [address] [place] [address] 09/12/2024 10:30 AM EDT Office Visit [facility] [address] [place] [address] Nereida John FNP [address] [place] [address] 01/01/2025 10:00 AM EST Office Visit [facility] ADULT DENTAL [address] [place] [address] May Anderson documented as of this encounter Visit Diagnoses Not on filedocumented in this encounter Additional Health Concerns Assessment Noted Time PHQ-9 Depression Total Score: 9 09/09/19 9:41 AM EDT documented as of this encounter Care Teams Double Head Machine Operator Relationship Specialty Start Date End Date Nereida John FNP [address] [place] [address] PCP - General Family Medicine 08/09/22 documented as of this encounter
--- OUTSIDE RECORDS SUMMARY | 2024-07-02 16:11 | XMS_ITS | Encounter Summary ---
Author Organization [employer] Address [address] [place] [address] 7 [place] [address] Care Team Providers Care Company Miner Blasting Name Role Phone [facility] Primary Care Provider [phone] Reason for Visit * Reason Onset Date Comments Call Back Request 04/11/2023 Encounter Details Date Type Department Care Team ([facility] Contact Info) Description 04/11/2023 Telephone [facility] [address] [place], [place] [phone] [facility] [address] [place] [address] Call Back Request Social History Tobacco Use Types Packs/Day Years Used Date Smoking Tobacco: Never Smokeless Tobacco: Never Alcohol Use Standard Drinks/Week Comments Not Currently 0 (1 standard drink = 0.6 oz pur e alcohol) Depression Answer Date Recorded Patient Health Questionnaire-9 Score 10 02/07/2023 Patient Health Questionnaire-9 Score 10 02/07/2023 Last PHQ-9: Questionnaire Data Not on file 1 04/10/2022 Housing Stability Answer Date Recorded What is [...] Date Recorded Patient Health Questionnaire-2 Score 4 02/07/2023 Comments Unknown Sex and Gender Information Value Date Recorded Sex Assigned at Female 12/28/2021 10:22 AM EDT Legal Sex Female 10:22 AM EDT Gender Identity Female 12/28/2021 10:22 AM EDT Sexual Orientation Straight 12/28/2021 10 :22 AM EDT documented as of this encounter Miscellaneous Notes * Telephone Encounter - Holly Joy RN - 04/13/2023 10:25 AM EST TC returned to pt., pt. Reports she is waiting on rx for either Trulicity or Ozempic to be sent as discussed at appt. 04/11/23. Thank you! * Telephone Encounter - Amelia Hernandez - 04/11/2023 3:18 PM EST Tc from pt requesting to speak with nurse/PCP in regards to medication discussed on today (04/11) OV. Please contact pt at [phone] documented in this encounter Plan of Treatment Upcoming Encounters Date Type Department Care Team (Late st Contact Info) Description 07/11/2024 9:30 AM EDT Office Visit [facility] OPT[facility] [address] [place] [address] Kennedi Shah, CJ [address] [place] [address] 09/12/2024 10:30 AM EDT Office Visit [facility] [address] [place] [address] [employer] MA[employer]GER [address] [place] [address] 01/01/2025 10:00 AM EST Office Visit [facility] ADULT DENTAL [address] [place] [address] May Anderson documented as of this encounter Visit Diagnoses Not on filedocumented in this encounter Additional Health Concerns Assessment Noted Time PHQ-9 Depression Total Score: 10 023 2:38 PM EST documented as of this encounter Care Teams Company Miner Blasting Relationship Specialty Start Date End Date Nereida John FNP [address] [place] [address] PCP - General Family Medicine 08/09/22 documented as of this encounter
--- OUTSIDE RECORDS SUMMARY | 2024-07-02 16:11 | XMS_ITS | Clinical Summary ---
Author Organization [facility] Address [address] [place] [address] Phone Care Team Providers Care Assistant Golf Coach Name Role Phone Unavailable Primary Care Provider Unavailabl e Immunizations Immunization Administration Dates Next Due DTaP 5 09/07/2001, 9,04/01/1997, 997,1996 HPV, Quadrivalent 12/25/2010,09/15/2010,10/10/19 10 Hep A, ped/adol 09/15/2010 Hep B, ped/adol 04/01/1997,1996,1996 Hib (PRP-T) 01/20/1998, 8,01/07/1997, 997 IPV 09/07/2001 Influenza Split 12/25/2010 MMR 09/15/2000,09/16/1997 Meningococcal Conj (Menactra) MCV4P 10/09/2009 OPV 04/01/1997,01/07/1997,1996 Tdap 10/09/2009 Varicella 10/23/2008,09/04/1998 Family History Relation Name Status Comments Father Alive Father: Asthma Mother Alive Mother: Alive a nd well Other Family history of Seizure disorder Paternal Grandfather Paterna l grandfather: Asthma Paternal Grandmother Paterna l grandmother: Asthma Sister Alive Sister: Alive a nd well Social History Tobacco Use Types Packs/Day Years Used Date Smoking Tobacco: Never Assessed Comments Unknown Sex and Gender Information Value Date Recorded Sex Assigned at Not on file Legal Sex Female 4:39 PM EDT Gender Identity Not on file Sexual Orientation Not on file Last Filed Vital Signs Vital Sign Reading Time Taken Comments Blood Pressure 102/68 04/16/2011 12:00 AM EST Pulse 72 07/30/2010 12:00 AM EDT Temperature 36.3 ??C (97.4 ??F) 12/25/2010 12:00 AM E DT Respiratory Rate - - Oxygen Saturation - - Inhaled Oxygen Concentration - - Weight 49.9 kg (110 lb) 04/16/2011 12:00 AM EST Height 160 cm (5' 3 ) 04/16/2011 12:00 AM EST Body Mass Index 19.49 04/16/2011 12:00 AM EST Plan of Treatment Health Maintenance Due Date Last Done Comments Hepatitis A Vaccines (2 of 2 - 2-dose series) 03/18/2011 09/15/2010 DTaP,Tdap,and Td Vaccines (7 - Td or Tdap) 10/10/2019 10/09/2009, 09/07/2001, 03/28/1998, Additional history exists Influenza Vaccines (#1) 2023 12/25/2010 COVID-19 Vaccine ( season) 2023 Hepatitis B Vaccines Completed 04/01/1997, 1996, 1996 HIB Vaccines Completed 01/20/1998, 03/1997, 01/07/1997, Additional history exists MMR Vaccines Completed 09/15/2000, 09/16/1997 IPV Vaccines Completed 09/07/2001, 03/1997, 01/07/1997, Additional history exists Varicella Vaccines Completed 10/23/2008, 09/04/1998 Meningococcal Vaccine Aged Out 10/09/2009 No jose anna eligible based on patient's age to complete this topic HPV Vaccines Completed 12/25/2010, 08/28, 10/09/2009 Men B Vaccine Aged Out No longer elig ible based on patient's age to complete this topic Pneumococcal Vaccine Aged Out No long er eligible based on patient's age to complete this topic
--- OUTSIDE RECORDS SUMMARY | 2024-07-02 16:11 | XMS_ITS | Encounter Summary ---
Author Organization [facility] Address [address] [place] [address] Phone Care Team Providers Care Almond Sorter Name Role Phone Brenda Berger MD Primary Care Provider [phone] Encounter Details Date Type Department Care Team (Late st Contact Info) Description 06/05/2009 Documentation [facility] [address] [place] [address] Family Medicine, Physician [address] [place], [place] [phone] Social History Tobacco Use Types Packs/Day Years Used Date Smoking Tobacco: Never Assessed Comments Unknown Sex and Gender Information Value Date Recorded Sex Assigned at Not on file Legal Sex Female 4:39 PM EDT Gender Identity Not on file Sexual Orientation Not on file documented as of this encounter Plan of Treatment Not on file documented as of this encounter Visit Diagnoses Not on filedocumented in this encounter Care Teams Almond Sorter Relationship Specialty Start Date End Date Brenda Berger MD [address] [place] [address] TC Renee [address] PCP - General 10/08/16 08/19/22 documented as of this encounter
--- OUTSIDE RECORDS SUMMARY | 2024-07-02 16:11 | XMS_ITS | Encounter Summary ---
Author Organization [facility] Address [address] [place] [address] Phone Care Team Providers Care Director Funds Development Name Role Phone Brenda Berger MD Primary Care Provider [phone] Encounter Details Date Type Department Care Team (Late st Contact Info) Description 12/28/[address] [facility] [address] [place] [address] Family Medicine, Physician [address] [place], [place] [phone] Social History Tobacco Use Types Packs/Day Years [...] on filedocumented in this encounter Care Teams Director Funds Development Relationship Specialty Start Date End Date Brenda Berger MD [address] [place] [address] TC Renee [address] PCP - General 10/08/16 08/19/22 documented as of this encounter
--- OUTSIDE RECORDS SUMMARY | 2024-07-02 16:11 | XMS_ITS | Encounter Summary ---
Author Organization [employer] Address [address] [facility] 7 [place] [address] Care Team Providers Care Soft Shoe Dancer Name Role Phone Nereida John [employer] Primary Care Provider [phone] Reason for Visit * Reason Comments Med Refill Encounter Details Date Type Department Care Team (Late st Contact Info) Description 04/15/2023 Refill [facility] ADULT DENTAL [address] [place] [address] Veronica Chowdhury DDS [address] [place] [address] Social History Tobacco Use Types Packs/Day Years [...] encounter Miscellaneous Notes * Telephone Encounter - Dieudonne Newsome DMD - 04/15/2023 8:13 AM EST Please follow up with Dr. Lopez. Thanks documented in this encounter Plan of Treatment Upcoming Encounters Date Type Department Care Team (Late st Contact Info) Description 07/11/2024 9:30 AM EDT Office Visit [facility] OPTOMETRY [address] [place] [address] PabloKennedi abebe, OD [address] [place] [address] 09/12/2024 10:30 AM EDT Office Visit [facility] MEDICINE [address] [place] [address] Nereida John FNP [address] [place] [address] 01/01/2025 10:00 AM EST Office Visit [facility] ADULT DENTAL [address] [place] [address] May Anderson documented as of this encounter Visit Diagnoses Not on filedocumented in this encounter Additional Health Concerns Assessment Noted Time PHQ-9 Depression Total Score: 10 023 2:38 PM EST documented as of this encounter Care Teams Soft Shoe Dancer Relationship Specialty Start Date End Date Nereida John FNP [address] [place] [address] PCP - General Family Medicine 08/09/22 documented as of this encounter
--- OUTSIDE RECORDS SUMMARY | 2024-07-02 16:11 | XMS_ITS | Encounter Summary ---
Author Organization [employer] Address [address] [place] [address] 7 [place] [address] Care Team Providers Care Security Police Name Role Phone [facility] Primary Care Provider [phone] Reason for Visit * Reason Comments Med Change Request Encounter Details Date Type Department Care Team ([facility] st Contact Info) Description 05/03/2023 Refill [facility] MEDICINE [address] [place], [place] [phone] [facility], [facility] [address] [place] [address] Primary hypertension Social History Tobacco Use Types Packs/Day Years [...] AM EDT documented as of this encounter Plan of Treatment Upcoming Encounters Date Type Department Care Team (Late st Contact Info) Description 07/11/2024 9:30 AM EDT Office Visit [facility] OPTOMETRY [address] [place] [address] Pablo, Kennedi, OD [address] [place] [address] 09/12/2024 10:30 AM EDT Office Visit [facility] MEDICINE [address] [place] [address] Nereida John FNP [address] [place] [address] 01/01/2025 10:00 AM EST Office Visit [facility] ADULT DENTAL [address] [place] [address] May Anderson documented as of this encounter Visit Diagnoses Diagnosis Primary hypertension Unspecified essential hypertension documented in this encounter Additional Health Concerns Assessment Noted Time PHQ-9 Depression Total Score: 10 023 2:38 PM EST documented as of this encounter Care Teams Security Police Relationship Specialty Start Date End Date Nereida John FNP [address] [place] [id number] PCP - General Family Medicine 08/09/22 documented as of this encounter
--- OUTSIDE RECORDS SUMMARY | 2024-07-02 16:12 | XMS_ITS | Encounter Summary ---
Author Organization [employer] Address [address] [place] [address] [place] [address] Care Team Providers Care Smart Energy Specialist Name Role Phone Vivienne Alcocer [facility] Primary Care Provider [phone] [facility] Primary Care Provider Reason for Visit * Reason Onset Date Comments Appointment Request 05/21/2022 Encounter Details Date Type Department Care Team (Late st Contact Info) Description 05/21/2022 Telephone [facility] MEDICINE [address] [place] [address] Vivienne Alcocer, [address] Dept [place] [address] Appointment Request Social History Tobacco Use Types Packs/Day [...] suspected to have Coronavirus/COVID-19? No / Unsure 05/21/2022 1:01 PM EDT documented as of this encounter Miscellaneous Notes * Telephone Encounter - Courtney Pressleyrero - 05/21/2022 3:13 PM EDT Tc from pt requesting an appt regarding for some blood work her monument setter recommended her to get. Pt states she needs a blood glucose work done. Please contact pt at [phone] documented in this encounter Plan of Treatment Upcoming Encounters Date Type Department Care Team (Late st Contact Info) Description 07/11/2024 9:30 AM EDT Office Visit [facility] OPTOMETRY [address] [place] [address] PabloBassam abeben, OD [address] [place] [address] 09/12/2024 10:30 AM EDT Office Visit [facility] MEDICINE [address] [place] [address] Nereida John FNP [address] [place] [address] 01/01/2025 10:00 AM EST Office Visit [facility] ADULT DENTAL [address] [place] [address] May Anderson documented as of this encounter Visit Diagnoses Not on filedocumented in this encounter Care Teams Smart Energy Specialist Relationship Specialty Start Date End Date Vivienne Alcocer FNP PCP - General Family Medicine 10/28/21 08/08/22 Nereida John FNP [address] [place] [address] PCP - General Family Medicine 08/09/22 documented as of this encounter
--- OUTSIDE RECORDS SUMMARY | 2024-07-02 16:12 | XMS_ITS | Encounter Summary ---
Author Organization [facility] Address [address] [place] [address] Phone Care Team Providers Care Oil Well Gun Perforator Operator Name Role Phone Brenda Berger MD Primary Care Provider [phone] Encounter Details Date Type Department Care Team (Late st Contact Info) Description 12/28/2010 Documentation [facility] Family Medicine [address] [place] [address] Family Medicine, Physician [address] [place], [place] [id number] Social History Tobacco Use Types Packs/Day Years [...] on filedocumented in this encounter Care Teams Oil Well Gun Perforator Operator Relationship Specialty Start Date End Date Brenda Berger MD [address] [place] [address] [place]enee [address] PCP - General 10/08/16 08/19/22 documented as of this encounter
--- OUTSIDE RECORDS SUMMARY | 2024-07-02 16:12 | XMS_ITS | Clinical Summary ---
Author Organization [email or web address] Address [address] [place] [address] [address] [place] [address] Care Team Providers Care Quality Facilitator Name Role Phone Nereida John CATIA DESIGNER Primary Care Provider [phone] Allergies Active Allergy Reactions Criticality Noted Date Comments Sulfamethoxazole-Trimethoprim 2022 Sulfamethoxazole 03/06/2012 Trimethoprim 03/06/2012 Medications * This document contains information received from the source organization and may not represent a complete record from that organization. Blood Pressure kitIndications:Renita vated blood pressure reading in office without diagnosis of hypertension Use as directed. Previous kit not working 1 kit 3 Active cyclobenzaprine (Flexeril) 10 MG tablet Take 1 tablet (10 mg) by mouth 3 times daily for 10 days. 30 tablet 4 Active sertraline (Zoloft) 100 MG tabletIndications: Mixed anxiety and depressive disorder Take 1 tablet (100 mg) by mouth Once per day. 30 tablet 11 4 09/05/19 25 Active albuterol 108 (90 Base) MCG/ACT inhaler Inhale 2 puffs every 4 (four) hours if needed for wheezing or shortness of breath. 18 g 1 4 12/07/19 25 Active Spacer/Aero-Holdin g Chambers (OptiChamber Obdulia) misc 1 each every 4 (four) hours if needed (asthma). 1 each 4 Active olmesartan (BENIcar) 5 MG tabletIndications: Primary hypertension TAKE 1 TABLET BY MOUTH EVERY DAY IN THE MORNING 30 tablet 1 5 Active Semaglutide-Weight Management (Wegovy) 1.7 MG/0.75ML solution auto-injectorIndic ations:Binge eating disorder, unspecified severity Inject 0.75 mL (1.7 mg) under the skin 1 (one) time per week. 3 mL 1 5 Active ondansetron ODT (Zofran-ODT) 4 MG disintegrating tabletIndications: Encounter for weight management Take 1 tablet (4 mg) by mouth every 8 (eight) hours if needed for nausea or vomiting. 12 tablet 5 Active penicillin v potassium (Veetid) 500 MG tablet Take 1 tablet (500 mg) by mouth 2 times daily for 10 days. 20 tablet 5 07/08/19 25 Active acetaminophen (Tylenol) 500 MG tablet Take 2 tablets (1,000 mg) by mouth every 6 (six) hours if needed for moderate pain or fever for up to 25 doses. 30 tablet 5 Active ibuprofen 400 MG tablet Take 1 tablet (400 mg) by mouth every 6 (six) hours if needed for moderate pain or fever for up to 30 doses. 30 tablet 5 Active Hospital, Clinic, or Other Facility Administered Medication Ordered Dose Route Frequency Start Date End Date Status ibuprofen tablet 800 mgIndications:Strep pharyngitis 800 mg PO Once 06/27/2024 06/27/2024 Ended Active Problems Problem Noted Date Diagnosed Date Missing teeth, acquired 12/28/2023 Tooth sensitivity 12/28/2023 Healthcare maintenance 09/05/2023 Overview (09/05/2023): Mammo: Routine age 41-no family hx Pap: 08/2022 C-scope: Routine age 46-no family hx BMD: HCV Screen: HIV Screen: Immunizations: Screening Labs: Poison chavo dermatitis 08/11/2023 Assessment & Plan (08/11/2023 3:39 PM EDT): In light of extension and severity of rash I will treat it with prednisone+benadryl+triamcinolone RTC if symptoms persist or worse Essential hypertension 05/13/2023 Combined hyperlipidemia 05/13/2023 Dental plaque 05/06/2023 Dental abscess 03/31/2023 Binge eating disorder 09/30/2022 Mixed anxiety and depressive disorder 08/23/2022 Assessment & Plan (02/07/2023 3:08 PM EST): During IBH Consult Tea presenting??with??depressed mood, loss of interests/pleasure, change in psychomotor activity, loss of energy, trouble concentrating, thoughts of worthlessness or guilt and difficulty concentrating, fatigue, irritable, racing thoughts, shortness of breath; for a period of 6-12 mo, for all symptoms in the context of family issues illness or family illness.?? PLAN: (check all that apply) New/Additional Services needed On-site non-integrated services Off-site services for BH, Behavioral Health Integration Plan Internal Follow up with [facility], Warm handoff internal psychiatric provider, External OP BH therapy referral , OP psychiatry Referral, Patient Self Plan Patient to utilize skills provided in intervention , [facility], Comply with medication , Patient to engage in OP BH therapy , and Patient to reach out to [facility] as needed. Assessment & Plan (09/09/2022 9:03 AM EDT): Assessment: ?? Patient with anhedonia, feeling down, sleep disturbance, little energy/feeling tired, fluctuating of appetite, low self-esteem, crying spells and SI with no plan or intent. She denies HI.She also presents with anxiousness, worrying too much, unable to stop worrying trouble relaxing, restlessness, and irritable. Tea reports no history of psychiatrist hospitalizations, suicidal attempts, self-harming behaviors, substance use, trauma, or hallucinations. Patient reports presentation began a few months ago without a trigger. Patient is already connected to an OP therapist and is receiving medication management thru her PCP. ?? At this time Tea Wilson meets criteria for Visit Diagnoses: Problem List Items Addressed This Visit ? Other ?? Mixed anxiety and depressive disorder ?? Patient ready to address current needs Yes, patient has a therapist and is being followed by PCP for medication management ?? Strengths include motivation to obtain additional assistance to improve BH ?? PLAN: 1. Follow up with C: Not recommended for follow-up 2. Patient goal is diminish intrusive thoughts and improve BH symtpoms 3. Behavioral Recommendations a. Comply with medications and attend visits with PCP b. Comply with therapy appointments c. Utilize [facility], if symptoms worsen d. Practice coping skills e. Utilize walk in center, as needed f. May reach out to [facility], if needed Assessment & Plan (08/23/2022 2:15 PM EDT): Assessment: Tea was engaged with active reflective listening and open-ended questions. Assessed symptoms, risks, and social supports with direct questions. Discussed current symptoms intensity and frequency. Emotions were normalized and validated. She identified anxiety coping skills provided as little helpful and her daughter as protective factors. Informed her that she was referred to [facility]. Provided education around integrated medicine and the options of follow up BE's as needed. Provided contact information should questions or concerns arise. Plan: Tea will continue to engage in effective coping mechanisms provided on prioir session. I provide her with [facility] contact number for her to follow up in regards her referral status. I also encouraged her to talk with PCP during her appt on 08/27 about her OCD concern. While I will look what can be done for her to be assessed. Patient with Hx of ADHD in childhood, today she reported has been feeling better after taking her anxiety meds. She reported sxs such as having little energy,decrease appetite at times and other times binge eating, feeling bad about herself, trouble with concentration, feeling anxious, trouble relaxing, restlessness, she reported increase in having to check the door multiple times, asking daughter multiple times if she is ok, even when she has mentioned she is, counting, verbalized is interested in be assessed of OCD. She denies SI, HI, AVH or self-harm. Recommended Ind. Therapy and Medication management. At this time Tea Wilson meets criteria for Visit Diagnoses: Problem List Items Addressed This Visit Other Mixed anxiety and depressive disorder Patient ready to address current needs Referralpalced on 08/04/22 through [facility]. Strengths include Tea is in action stage of change and her motivation will serve as treatment engagement. PLAN: 1. Follow up with [facility]: Not recommended for follow-up 2. Patient goal is to engage in services to learn to manage her sxs and improve functionality. 3. Behavioral Recommendations a. Ind. Therapy b. Med. management c. Use of coping skills Allergic rhinitis 09/16/2011 Resolved Problems Problem Noted Date Diagnosed Date Resolved Date Anxiety 08/03/2022 09/14/2022 Assessment & Plan (08/03/2022 4:12 PM EDT): Assessment and Plan: Tea was engaged with active reflective listening and open-ended questions. Assessed symptoms, risks, and social supports with direct questions. Discussed current symptoms intensity and frequency. Emotions were normalized and validated. Tea identified breathing as coping mechanisms but reported they don't work very well. Provided psychoeducation around Relaxation Techniques, Behavior activations coping mechanisms. Discussed OP therapy and Medication Management, she agreed to both referrals. Provided education around integrated medicine and the options of follow up BE's as needed. Provided contact information should questions or concerns arise. Plan: Tea will be contacted by PCP to provide education about how to take her anxiety medication. She will engage in OP services for Ind. Therapy and Medication Management. Patient with anxiety attacks, palpitations, raising thoughts, body shaking, crying spells, persistent worry, loneliness, fear, denies SI/HI/AHV & LEIJA. Reported hx of ADHD in childhood. She reported anxiety attack yesterday, took 25mg of hydroxyzine and and 1hr and half later she was still anxious. Patient will benefit from Ind. Therapy and Medication management. At this time Tea Wilson meets criteria for Visit Diagnoses: Problem List Items Addressed This Visit Other Anxiety Patient ready to address current needs Yes Strengths include Tea is in action stage of change and her motivation will serve as treatment engagement. PLAN: 1. Follow up with [facility]: Not recommended for follow-up 2. Patient goal is learn to manage her anxiety 3. Behavioral Recommendations a. Ind. Therapy b. Medication Managment c. Coping skills discussed Encounters Date Type Department Care Team Description 06/27/2024 9:40 AM EDT Office Visit [facility] [address] [place] [address] Christoph Crespo MD Strep pharyngitis 06/27/2024 Travel 06/21/2024 Telephone [facility] [address] [place] [address] Nereida John FNP jeremie recall 05/30/2024 Refill [facility] [address] [place] [address] Nereida John FNP Binge eating disorder, unspecified severity; Encounter for weight management from Last 3 Months Immunizations Name Administration Dates Next Due DTaP 09/07/2001, 9,04/01/1997,01/07,1996 DTaP, 5 pertussis antigens 09/07/2001,,04/01/1997,01/07,1996 HPV, Quadrivalent 12/25/2010,09/15/2010,10/10/19 10 Hep A, ped/adol, 2 dose 09/15/2010 Hep B, Adolescent or Pediatric 04/01/1997,1996,1996 Hib (HbOC) 01/20/1998, 8,01/07/1997,11/05 Hib (PRP-T) 01/20/1998, 8,01/07/1997,11/05 IPV 09/07/2001 Influenza injectable quadriv alent preservative free 12/07/2022,02/13/2020 Influenza live intranasal qu adrivalent LIAV4 03/13/2015,12/24/2013 Influenza, IIV3, injectable 12/25/2010 Influenza, Split (incl. arnaud fied surface antigen) 12/25/2010 Influenza, seasonal, injecta ble, preservative free 11/17/2023 MMR 09/15/2000,09/16/1997 Meningococcal MCV4P ACYW-135 03/13/2015,10/10/19 10 OPV, Trivalent 04/01/1997,01/07/1997,1996 Pfizer Covid-19 Vaccine 12+ 12/26/2020, 1 Tdap 02/13/2020, 8,12/03/2011,10/09 Varicella 10/23/2008,09/04/1998 Family History Medical History Relation Name Comments Diabetes Mother Diabetes Mother's Sister Relation Name Status Comments Mother Mother's Sister Social History Tobacco Use Types Packs/Day Years [...] Orientation Straight 12/28/2021 10 :22 AM EDT Last Filed Vital Signs Vital Sign Reading [...] Mass Index 35.36 06/27/2024 9:24 AM EDT Plan of Treatment Upcoming Encounters Date Type Department Care Team (Late st Contact Info) Description 07/11/2024 9:30 AM EDT Office Visit [facility] OPT[facility] [address] [place] [address] Pablo, Kennedi, OD [address] [place] [address] 09/12/2024 10:30 AM EDT Office Visit [facility] [address] [place] [address] Alvaro, Nereida, CATIA DESIGNER [address] [place] [address] 01/01/2025 10:00 AM EST Office Visit [facility] ADULT DENTAL [address] [place] [address] May Anderson Health Maintenance Due Date Last Done Comments Alcohol/Substance Use Screening 2008 Hepatitis A Vaccines (2 of 2 - 2-dose series) 03/18/2011 09/15/2010 Family Planning (PISQ) 09/04/2011 Dental Oral Exam 09/21/2023 03/22/2023 COVID-19 Vaccine ( season) 2023 12/26/2020, 12/02/2020 Dental X-Ray: Bitewings 03/23/2024 03/22/2023, 03/03 SDOH Screening 04/05/2024 04/05/2023 Dental Prophylaxis 06/28/2024 12/28/2023, 05/06/2023 Depression Screening 09/04/2024 09/05/2023, 09/05/19 Tobacco Screening 06/27/2025 06/27/2024 Pap Smear 09/02/2025 09/02/2022, 06/28, 02/16/2020 Dental X-Ray: Full Mouth 03/23/2026 03/22/2023 Lipid Panel 01/16/2029 01/17/2024, 03, 02/13/2020 DTaP/Tdap/Td Vaccines (10 - Td or Tdap) 02/12/2030 02/13/2020, 03/17/2017, 12/03/2011, Additional history exists Zoster Vaccines (1 of 2) 2046 RSV Patients and Patients Aged 60 years or older (1 - 1-dose 75+ series) 09/04/2071 Hepatitis B Vaccines Completed 04/01/1997, 1996, 1996 HIB Vaccines Completed 01/20/1998, 12/30, 04/01/1997, Additional history exists IPV Vaccines Completed 09/07/2001, 03/1997, 01/07/1997, Additional history exists HPV Vaccines Completed 12/25/2010, 08/28, 10/09/2009 Meningococcal Vaccine Completed 03/13/2015, 010 HIV Screening Completed 08/27/2022, 07/09/2020 Hepatitis C Screening Completed 08/27/2022, 021 Influenza Vaccine Completed 11/17/2023, , 02/13/2020, Additional history exists Pneumococcal Vaccine: Pediatrics (0 to 5 Years) and At-Risk Patients (6 to 49) Years) Aged Out No longer eligible based on patient's age to complete this topic RSV under 20 months Aged Out No longe r eligible based on patient's age to complete this topic Rotavirus Vaccines Aged Out No longer eligible based on patient's age to complete this topic Procedures Procedure Name Priority Date/Time Associated Diagnosis Comments POCT INFLUENZA A (ID NOW RAPID MOLECULAR) Routine 06/27/2024 9:49 AM EDT Strep pharyngitis POCT INFLUENZA B (ID NOW RAPID MOLECULAR) Routine 06/27/2024 9:49 AM EDT Strep pharyngitis POCT RAPID STREP A Routine 06/27/2024 9: 30 AM EDT Strep pharyngitis POCT RAPID COVID ANTIGEN Routine 06/27/2024 9:30 AM EDT Strep pharyngitis CT HEAD WO CONTRAST Routine 04/04/2024 1 2:[address] CERVICAL SPINE WO CONTRAST Routine 04/04/2024 12:08 AM EST LIPID PANEL, STANDARD Routine 01/17/2024 11:08 AM EST Encounter for weight management PROPHYLAXIS - ADULT Routine 12/28/2023 1 0:00 AM EDT INTRAORAL - COMPLETE SERIES OF RADIOGRAPHIC IMAGES Routine 03/22/2023 9:00 AM EST Encounter for dental examination Dental caries Dental plaque COMPREHENSIVE ORAL EVALUATION - NEW OR ESTABLISHED PATIENT Routine 03/22/2023 9:00 AM EST Encounter for dental examination Dental caries Dental plaque PAP SMEAR Routine 09/02/2022 11:33 AM EDT HEPATITIS C AB W/REFL TO HCV RNA, QN, PCR Routine 08/27/2022 9:54 AM EDT Encounter for well adult exam without abnormal findings HIV 1/2 ANTIGEN/ANTIBODY, FOURTH GENERATION W/RFL Routine 08/27/2022 9:54 AM EDT Encounter for well adult exam without abnormal findings from Last 3 Months or Most Recently Relevant to Health Maintenance Results * Influenza B (ID NOW Rapid Molecular) (06/27/2024 9:49 AM EDT) Influenza B Negative Negative, Indeterminate [facility] Swab 06/27/2024 9:49 AM EDT us Christoph Crespo MD POINT OF CARE TEST ENTER/EDIT OR DERABLES Final Result [facility] [address] [place] [address] [phone] * Influenza A (ID NOW Rapid Molecular) (06/27/2024 9:49 AM EDT) Influenza A Negative Negative, Indeterminate [facility] Swab 06/27/2024 9:49 AM EDT us Christoph Crespo MD POINT OF CARE TEST ENTER/EDIT OR DERABLES Final Result Performing Organization Address [facility]/State/ZIP Co de Phone Number [facility] [address] [place] [address] [phone] * POCT Rapid COVID Ag (06/27/2024 9:30 AM EDT) Rapid COVID Ag Negative Swab 06/27/2024 9:30 AM EDT Christoph Crespo MD POINT OF CARE TEST ENTER/EDIT OR DERABLES Final Result * (ABNORMAL) POCT rapid strep A manually resulted (06/27/2024 9:30 AM EDT) [facility] Rapid Strep A Screen Positive( A) Negative, None Detected Swab 06/27/2024 9:30 AM EDT us Christoph Crespo MD POINT OF CARE TEST ENTER/EDIT OR DERABLES Final Result * CT Head w/o Contrast (04/04/2024 12:09 AM EST) Anatomical Region Laterality Modality Head, Neck Computed Tomogra phy 04/04/2024 12:0 9 AM EST Narrative 04/04/2024 12:10 AM EST ? [facility] ?[address] ?[place] [address] ? CT Scan Report ? Signed ? Patient: Wilson,Tea ?MR#: [id number] ?? 7 ? : 1995 ?Acct:[id number] ? Age/Sex: 28 / F ?ADM Date: 02/04/25 ? Loc: HO.ED ? Attending Dr: ? Ordering Physician: Generic ED Physician ?? Date of Service: 04/03/24 ?? Procedure(s): CT head/brain wo IV con ?? Accession Number(s): [id number] ? cc: Generic ED Physician; Nereida John CATIA DESIGNER ? Report Number: ?? [id number]: Total DLP = ??615.00 mGy-cm ? CLINICAL HISTORY: pain lump post head strike ? CT head without contrast ? Comparison: None ? Findings: ?? No intra-axial mass, midline shift, hydrocephalus, or acute hemorrhage. ?? No significant atrophy-like change or white matter disease. ? Air-fluid levels in the maxillary sinuses suggesting acute sinusitis. ?? The orbits are unremarkable. ?? There is no acute fracture. ? IMPRESSION: ?? No acute intracranial findings. ?? Acute maxillary sinusitis. ? This document has been electronically signed by: Kenrick Cruz MD on ?? 04/04/2024 00:09:28 ? Dictated By: ?Kenrick Cruz MD ? Signed By: ?<Electronically signed by Kenrick Cruz MD in OV> ?04/04/24 0010 ? DD/ 0009 ? TD/TT: 04/04/24 0009 ? Drain Tile Machine Operator: ? Procedure Note [place], Image - 04/04/[address] [address] [address] Scan Report Signed Patient: Tea WilsonMR#: [id number] 7 : 1995Acct:[id number] Age/Sex: 28 / FADM Date: 04/03/24 Loc: HO.ED Attending Dr: Ordering Physician: Generic ED Physician Date of Service: 04/03/24 Procedure(s): CT head/brain wo IV con Accession Number(s): [id number] cc: Generic ED Physician; [facility] CATIA DESIGNER Report Number: [id number]: Total DLP = 615.00 mGy-cm CLINICAL HISTORY: pain lump post head strike CT head without contrast Comparison: None Findings: No intra-axial mass, midline shift, hydrocephalus, or acute hemorrhage. No significant atrophy-like change or white matter disease. Air-fluid levels in the maxillary sinuses suggesting acute sinusitis. The orbits are unremarkable. There is no acute fracture. IMPRESSION: No acute intracranial findings. Acute maxillary sinusitis. This document has been electronically signed by: Kenrick Cruz MD on 04/04/2024 00:09:28 Dictated By: Kenrick Cruz MD Signed By: <Electronically signed by Kenrick Cruz MD in OV> 04/04/24 0010 DD/ TD/TT: 04/04/248 Drain Tile Machine Operator: us [facility] External Provider IMG CT PROCEDURES Edited Result - Final * CT Cervical Spine w/o Contrast (04/04/2024 12:08 AM EST) Anatomical Region Laterality Modality Spine, C-spine Computed Tomogra phy 04/04/2024 12:0 8 AM EST Narrative 04/04/2024 12:10 AM EST ? [facility] ?[address] ?[place] [address] ? CT Scan Report ? Signed ? Patient: Tea Wilson ?MR#: [id number] ?? 7 ? : 1995 ?Acct:[id number] ? Age/Sex: 28 / F ?ADM Date: 04/03/24 ? Loc: HO.ED ? Attending Dr: ? Ordering Physician: Generic ED Physician ?? Date of Service: 04/03/24 ?? Procedure(s): CT cervical spine wo IV con ?? Accession Number(s): [id number] ? cc: Generic ED Physician; Nereida John CATIA DESIGNER ? Report Number: ?? [id number]: Total DLP = ??583.00 mGy-cm ? CLINICAL HISTORY: pain post head strike ? CT cervical spine without contrast ? Comparison: None ? Findings: ?? Reversal of the cervical lordosis. ?? No significant degenerative change. ?? No acute fractures or dislocations. ? Visualized intracranial contents are unremarkable. ?? Scattered prominent lymph nodes throughout the neck, may be reactive ?? however are nonspecific. ?? Lung apices are clear. ? IMPRESSION: ?? No acute findings. ? This document has been electronically signed by: Kenrick Cruz MD on ?? 04/04/2024 00:08:17 ? Dictated By: ?Kenrick Cruz MD ? Signed By: ?<Electronically signed by Kenrick Cruz MD in OV> ?04/04/24 0009 ? DD/ 0008 ? TD/TT: 04/04/24 0008 ? Drain Tile Machine Operator: ? Procedure Note Sherrell, [place] - 04/04/[address] [address] [address] Scan Report Signed Patient: Tea WilsonMR#: [id number] 7 : 1995Acct:[id number] Age/Sex: 28 / FADM Date: 04/03/24 Loc: HO.ED Attending Dr: Ordering Physician: Generic ED Physician Date of Service: 04/03/24 Procedure(s): CT cervical spine wo IV con Accession Number(s): [id number] cc: Generic ED Physician; Nereida John CATIA DESIGNER Report Number: [id number]: Total DLP = 583.00 mGy-cm CLINICAL HISTORY: pain post head strike CT cervical spine without contrast Comparison: None Findings: Reversal of the cervical lordosis. No significant degenerative change. No acute fractures or dislocations. Visualized intracranial contents are unremarkable. Scattered prominent lymph nodes throughout the neck, may be reactive however are nonspecific. Lung apices are clear. IMPRESSION: No acute findings. This document has been electronically signed by: Kenrick Cruz MD on 04/04/2024 00:08:17 Dictated By: Kenrick Cruz MD Signed By: <Electronically signed by Kenrick Cruz MD in OV> 04/04/248 DD/ TD/TT: 04/04/247 Drain Tile Machine Operator: [facility] External Provider IMG CT PROCEDURES Edited Result - Final * (ABNORMAL) Lipid Panel, Standard (01/17/2024 11:08 AM EST) Triglycerides 79 <150 mg/dL [facility] Comment:Desirable Triglyceri de: less than 150 mg/dLBorderline High Triglyceride 150-199 mg/dLHigh Triglyceride: 200-499 mg/dLVery High Triglyceride: greater than or equal to 5OO mg/dL Cholesterol 175 <200 mg/dL [facility] Comment:Desirable Cholestero l: less than 200 mg/dLBorderline High Cholesterol: 200-239 mg/dLHigh Cholesterol: greater than 239 mg/dL LDL Cholesterol Calculated 113(H) <100 mg/dL [facility] Comment:Desirable LDL: less than 100 mg/dLNear Optimal/Above Optimal LDL: 110- 129 mg/dLBorderline High LDL: 130-159 mg/dLHigh LDL: 160-189 mg/dLVery High LDL: greater than or equal to 190 mg/dL HDL Cholesterol 47 >40 mg/dL [facility] Comment:Desirable HDL: great er than 40 mg/dL Note: This HDL assay may give artificially low results in patients with liver disease. Blood Venous blood specimen / Unknown 01/17/2024 11:08 AM EST 01/17/2024 1:08 PM EST [facility] CATIA DESIGNER LAB BLOOD ORDERABLES Final Re sult [facility] [address] [place] [phone] * Pap Smear (09/02/2022 11:33 AM EDT) 09/02/2022 11:3 3 AM EDT 09/07/2022 9:20 AM EDT Narrative [facility] - 09/23/2022 1:21 PM EDT ----- ------- Name: Tea Wilson ?Age/Sex: 26/F ? : 1995 Unit#: [id number] ?? Attend Dr: Carla Brooks CNM ?Re09/02/22 ?Status: DEP REF ? Location: HO.LNP ?Disch: ? ----- ------- SPEC : [id number] ? RECD: 09/07/22 ? STATUS: ??SOUT ? REQ NUM: [id number] ? ALLIE: 09/02/22 ? SUBM DR: Carla Brooks CNM ? ENTERED: ??09/07/22 ?SP TYPE: Pap Smr ?OTHR DR: Nereida John CATIA DESIGNER ? ORDERED: ??Pap Smear, PAP path review ? Interpretation ?? General Category: ? Negative for intraepithelial lesion/malignancy. ?? Adequacy: ? Endocervical component present. ?? Interpretation: ? Reactive cellular changes. ?Abundant acute inflammation. ?Clinical Information LMP: 08/01/22 Previous PAP test: Unknown date/findings ? Material Received ?? ThinPrep-Cervical Copies To: ?? Carla Brooks CNM ?? [address] [facility] [address] ?? [place] [address] ?? [phone] ?? [place] [employer]IA [place] ?? [address] [facility] ?? [place] [address] ?? [phone] ----- ------- Signed (signature on file) Amy Antoine 09/23/22 1321 ? ----- ------- ? END OF REPORT ? [facility] External Provider LAB [facility] ORDERABLES Final Result [facility] [address] [place] [address] [phone] * Hepatitis C Antibody with Reflex to HCV, RNA, Quantitative, Real-Time PCR (08/27/2022 9:54 AM EDT) Pathologist [facility] [place] Hepatitis C Antibody NON-REACT MICHAEL NON-REACT MICHAEL [facility] Comment: HCV antibody was non-reactive. There is no laboratory evidence of HCV infection. In most cases, no further action is required. However, if recent HCV exposure is suspected, a test for HCV RNA (test code 05395) is suggested. For additional information please refer to http://education.HomeViva/faq/ZUU47v0 (This link is being provided for informational/ educational purposes only.) Blood Venous blood specimen / Unknown 08/27/2022 9:54 AM EDT 08/27/2022 9:54 AM EDT Narrative [facility] - 09/04/2022 9:44 AM EDT FASTING:YES FASTING: YES Vivienne Alcocer CATIA DESIGNER LAB BLOOD ORDERABLES Final Result [facility] [address] [facility], [facility], [place] [address] [email or web address] [address] [place] [address] * HIV-1/2 Antigen and Antibodies, Fourth Generation, with Reflexes (08/27/2022 9:54 AM EDT) Pathologist [facility] [place] HIV Antigen/Antibody, 4th Generation NON-REAC TIVE NON-REAC TIVE [email or web address] [facility] Comment: HIV-1 antigen and HIV-1/HIV-2 antibodies were not detected. There is no laboratory evidence of HIV infection. PLEASE NOTE: This information has been disclosed to you from records whose confidentiality may be protected by state law. ??If your state requires such protection, then the state law prohibits you from making any further disclosure of the information without the specific written consent of the person to whom it pertains, or as otherwise permitted by law. A general authorization for the release of medical or other information is NOT sufficient for this purpose. ?? For additional information please refer to http://education.Beleza na Web.Pressy/faq/JDE376 (This link is being provided for informational/ educational purposes only.) The performance of this assay has not been clinically validated in patients less than 2 years old. Blood Venous blood specimen / Unknown 08/27/2022 9:54 AM EDT 08/27/2022 9:54 AM EDT Narrative [facility] - 09/04/2022 9:44 AM EDT FASTING:YES FASTING: YES Viviennekarla Alcocer CATIA DESIGNER LAB BLOOD ORDERABLES Final Result [facility] [address] [facility], [facility], [place] [address] [facility] [address] [place] [address] from Last 3 Months or Most Recently Relevant to Health Maintenance Insurance [facility] - HSN PARTIAL (MEDICAID) Care Teams Quality Facilitator Relationship Specialty Start Date End Date Alvaro PABLO Padron [address] [place] [address] PCP - General Family Medicine 08/09/22
--- OUTSIDE RECORDS SUMMARY | 2024-07-02 16:12 | XMS_ITS | Encounter Summary ---
Author Organization [facility] Address [address] [place] [address] Phone Care Team Providers Care Milk Drier Name Role Phone Brenda Berger MD Primary Care Provider [phone] Encounter Details Date Type Department Care Team (Late st Contact Info) Description 04/27/2011 Documentation [facility] [place] Family Medicine [address] [place] [address] Family Medicine, Physician [address] [place], [place] [id number] Social History Tobacco Use Types Packs/Day Years [...] on filedocumented in this encounter Care Teams Milk Drier Relationship Specialty Start Date End Date Brenda Berger MD [address] [place] [address] [place]e [address] PCP - General 10/08/16 08/19/22 documented as of this encounter
--- OUTSIDE RECORDS SUMMARY | 2024-07-02 16:12 | XMS_ITS | Encounter Summary ---
Author Organization [employer] Address [address] [place] [address] 7 [place] [address] Care Team Providers Care Buffing Wheel Operator Name Role Phone [facility] Primary Care Provider [phone] Reason for Visit * Reason Comments Med Refill Encounter Details Date Type Department Care Team ([facility] st Contact Info) Description 07/26/2023 Refill [facility] [address] [place], [place] [phone] [facility] [address] [place] [address] Class 2 obesity due to excess calories without serious comorbidity with body mass index (BMI) of 39.0 to 39.9 in adult Social History Tobacco Use Types Packs/Day Years [...] enough money to get more: Never True 10/ Transportation Answer Date Recorded In the past [...] Description 07/11/2024 9:30 AM EDT Office Visit [facility] [address] [place] [address] PabloKennedi abebe, OD [address] [place] [address] 09/12/2024 10:30 AM EDT Office Visit [facility] [address] [place] [address] Nreeida John [facility] [address] [place] [address] 01/01/2025 10:00 AM EST Office Visit [facility] ADULT DENTAL [address] [place] [address] May Anderson documented as of this encounter Visit Diagnoses Diagnosis Class 2 obesity due to excess calories without serious comorbidity with body mass index (BMI) of 39.0 to 39.9 in adult documented in this encounter Additional Health Concerns Assessment Noted Time PHQ-9 Depression Total Score: 10 023 2:38 PM EST documented as of this encounter Care Teams Buffing Wheel Operator Relationship Specialty Start Date End Date Nereida John FNP [address] [place] [address] PCP - General Family Medicine 6/12/23 documented as of this encounter
--- OUTSIDE RECORDS SUMMARY | 2024-07-02 16:12 | XMS_ITS | Encounter Summary ---
Author Organization [facility] Address [address] [place] [address] Phone Care Team Providers Care Websphere Portal Architect Name Role Phone Brenda Berger MD Primary Care Provider [phone] Encounter Details Date Type Department Care Team (Late st Contact Info) Description 04/21/2011 Documentation [facility] [place] [address] [place] [address] Family Medicine, Physician [address] [place], [place] [phone] Social History Tobacco Use Types Packs/Day Years [...] on filedocumented in this encounter Care Teams Websphere Portal Architect Relationship Specialty Start Date End Date Brenda Berger MD [address] [place] [address] [place] [address] PCP - General 10/08/16 08/19/22 documented as of this encounter
--- OUTSIDE RECORDS SUMMARY | 2024-07-02 16:12 | XMS_ITS | Encounter Summary ---
Author Organization [facility] Address [address] [place] [address] Phone Care Team Providers Care Inspector Pawnshop Detail Name Role Phone Brenda Berger MD Primary Care Provider [phone] Encounter Details Date Type Department Care Team (Late st Contact Info) Description 10/14/2016 Conversion Encounter [facility] [address] [place] [address] Social History Tobacco Use Types Packs/Day Years [...] on filedocumented in this encounter Care Teams Inspector Pawnshop Detail Relationship Specialty Start Date End Date Brenda Berger MD [address] [place] [address] PCP - General 10/08/16 08/19/22 documented as of this encounter
--- OUTSIDE RECORDS SUMMARY | 2024-07-02 16:12 | XMS_ITS | Encounter Summary ---
Author Organization [facility] Address [address] [place] [address] Phone Care Team Providers Care Lease Administrator Name Role Phone Brenda Berger MD Primary Care Provider [phone] Encounter Details Date Type Department Care Team (Late st Contact Info) Description 12/29/2010 Documentation [facility] [place] Family Medicine [address] [place] [address] Family Medicine, Physician [address] [place], [place] [phone] Social History Tobacco Use Types Packs/Day Years [...] on filedocumented in this encounter Care Teams Lease Administrator Relationship Specialty Start Date End Date Brenda Berger MD [address] [place] [address] TC [place]e [address] PCP - General 10/08/16 08/19/22 documented as of this encounter
--- OUTSIDE RECORDS SUMMARY | 2024-07-02 16:12 | XMS_ITS | Encounter Summary ---
Author Organization [facility] Address [address] [place] [address] Phone Care Team Providers Care Jewelry Sales Associate Name Role Phone Brenda Berger MD Primary Care Provider Encounter Details Date Type Department Care Team (Late st Contact Info) Description 12/28/2010 Documentation [facility] [place] Family Medicine [address] [place] [address] Family Medicine, Physician [address] [place], [place] [phone] Social History Tobacco Use Types Packs/Day Years [...] on filedocumented in this encounter Care Teams Jewelry Sales Associate Relationship Specialty Start Date End Date Brenda Berger MD [address] [place] [address] TC [place]e [address] PCP - General 10/08/16 08/19/22 documented as of this encounter
--- OUTSIDE RECORDS SUMMARY | 2024-07-02 16:12 | XMS_ITS | Clinical Summary ---
Author Organization [facility] it Address [address] [place] [address] Care Team Providers Care Rail Signal Worker Name Role Phone Kel Burnham MD Primary Care Provider Family History Medical History Relation Name Comments Diabetes Aunt No Known Problems Father Hypertension Mother No Known Problems Sister Relation Name Status Comments Aunt Brother Alive Father Alive Mother Alive Sister Alive Social History Tobacco Use Types Packs/Day Years Used Date Smoking Tobacco: Never Smokeless Tobacco: Never Alcohol Use Standard Drinks/Week Comments No 0 (1 standard drink = 0.6 oz pur e alcohol) Comments Unknown Sex and Gender Information Value Date Recorded Sex Assigned at Not on file Legal Sex Female 7:38 AM EST Gender Identity Not on file Sexual Orientation Not on file Obstetrics History Plan of Treatment Health Maintenance Due Date Last Done Comments Hepatitis B Vaccines (1 of 3 - 19+ 3-dose series) 09/04/2015 Cervical Cancer Screening: P ap Smear 03/30/2021 03/30/2018, 03/30/2018 COVID-19 Vaccine (2023-2 5 season) 2023 Influenza Vaccine (Season Ended) 2024 11/25/2016 DTaP,Tdap,and Td Vaccines (2 - Td or Tdap) 03/17/2027 03/17/2017 HIB Vaccines Aged Out No longer eligi ble based on patient's age to complete this topic HPV Vaccines Aged Out No longer eligi ble based on patient's age to complete this topic Hepatitis A Vaccines Aged Out No long er eligible based on patient's age to complete this topic IPV Vaccines Aged Out No longer eligi ble based on patient's age to complete this topic MMR Vaccines Aged Out No longer eligi ble based on patient's age to complete this topic Meningococcal ACWY Vaccine Aged Out N o longer eligible based on patient's age to complete this topic Meningococcal B Vaccine Aged Out No l onger eligible based on patient's age to complete this topic Pneumococcal Vaccine: Pediatrics (0 to 5 Years) and At-Risk Patients (6 to 64 Years) Aged Out No longer eligible b ased on patient's age to complete this topic RSV Immunization Patients Under 20 months Aged Out No longer eligible b ased on patient's age to complete this topic Varicella Vaccines Aged Out No longer eligible based on patient's age to complete this topic Procedures Procedure Name Priority Date/Time Associated Diagnosis Comments PAP SMEAR Routine 03/30/2018 from Last 3 Months or Most Recently Relevant to Health Maintenance Results * Pap smear (03/30/2018) 03/30/2018 Narrative HISTORICAL TESTING LAB RESULTING AGENCY - 04/03/2018 3:25 PM EST [id number] THINPREP PAP, IMAGED: NEGATIVE FOR SQUAMOUS INTRAEPITHELIAL LESION AND MALIGNANCY . VIJAYA LEWIS(ASCP) (CASE ELECTRONICALLY SIGNED 04 03 2018) ADEQUACY: SATISFACTORY ENDOCERVICAL/TRANSFORMATION ZONE COMPONENT PRESENT. SOURCE: THINPREP PAP HPV IF ASCUS, CERVICAL, IMAGED CLINICAL INFORMATION: HPV IF DIAGNOSIS OF ASCUS. PAP HX NEG, Z12.4 Diana [facility] ORDERABLES Final R esult HISTORICAL TESTING LAB RESULTING AGENCY from Last 3 Months or Most Recently Relevant to Health Maintenance Care Teams Rail Signal Worker Relationship Specialty Start Date End Date Kel Burnham MD [address] [place] [phone] PCP - General Internal Medicine 03/30/18
--- OUTSIDE RECORDS SUMMARY | 2024-07-02 16:12 | XMS_ITS | Encounter Summary ---
Author Organization [facility] Address [address] [place] [address] Phone Care Team Providers Care Coat Checker Name Role Phone Brenda Berger MD Primary Care Provider [phone] Encounter Details Date Type Department Care Team (Late st Contact Info) Description 12/28/2010 Documentation [facility] [place] [address] [place] [address] Family Medicine, Physician [address] [place], [place] [phone] Social History Tobacco Use Types Packs/Day Years [...] on filedocumented in this encounter Care Teams Coat Checker Relationship Specialty Start Date End Date Brenda Berger MD [address] [place] [address] [place]e [address] PCP - General 10/08/16 08/19/22 documented as of this encounter
--- OUTSIDE RECORDS SUMMARY | 2024-07-02 16:12 | XMS_ITS | Encounter Summary ---
Author Organization [facility] Address [address] [place] [address] Phone Care Team Providers Care Panman Name Role Phone Brenda Berger MD Primary Care Provider [phone] Encounter Details Date Type Department Care Team (Late st Contact Info) Description 12/29/2010 Documentation [facility] [place] Family Medicine [address] [place] [address] Family Medicine, Physician [address] [place], [place] [phone] Social History Tobacco Use Types Packs/Day Years [...] on filedocumented in this encounter Care Teams Panman Relationship Specialty Start Date End Date Brenda Berger MD [address] [place] [address] [place] [address] PCP - General 10/08/16 08/19/22 documented as of this encounter
--- OUTSIDE RECORDS SUMMARY | 2024-07-02 16:12 | XMS_ITS | Encounter Summary ---
Author Organization [employer] Address [address] [facility] [address]t [place] [address] Care Team Providers Care Cnc Machinist 2Nd Shift Name Role Phone Nereida John VESSEL OPERATOR Primary Care Provider [phone] Encounter Details Date Type Department Care Team (Latest Contact Info) Description 06/27/2024 Travel Social History Tobacco Use Types Packs/Day Years [...] Description 07/11/2024 9:30 AM EDT Office Visit [facility] OPT[facility] [address] [place] [address] PabloKennedi, OD [address] [place] [address] 09/12/2024 10:30 AM EDT Office Visit [facility] [address] [place] [address] Nereida John FNP [address] [place] [address] 01/01/2025 10:00 AM EST Office Visit [facility] ADULT DENTAL [address] [place] [address] May Anderson documented as of this encounter Visit Diagnoses Not on filedocumented in this encounter Additional Health Concerns Assessment Noted Time PHQ-9 Depression Total Score: 13 024 10:38 AM EDT documented as of this encounter Care Teams Cnc Machinist 2Nd Shift Relationship Specialty Start Date End Date Nereida John FNP [address] [place] [address] PCP - General Family Medicine 08/09/22 documented as of this encounter
--- OUTSIDE RECORDS SUMMARY | 2024-07-02 16:12 | XMS_ITS | Encounter Summary ---
Author Organization [employer] Address [address] [place] [address] 7 [place] [address] Care Team Providers Care Bleach Chlorinator Name Role Phone Nereida John [facility] Primary Care Provider [phone] Reason for Visit * Reason Onset Date Comments Results 02/06/2024 Encounter Details Date Type Department Care Team ([facility] Contact Info) Description 02/06/2024 Telephone [facility] [address] [place], [place] [phone] [place], [facility] [address] [place] [address] Results Social History Tobacco Use Types Packs/Day Years [...] encounter Miscellaneous Notes * Telephone Encounter - PABLO Mattson - 02/10/2024 4:31 PM EST Patient contacted and advised of normal results * Telephone Encounter - Katerina Gregg - 02/10/2024 9:53 AM EST Tc from pt requesting status on results. Contact pt at [phone] * Telephone Encounter - Sean Stauffer - 02/08/2024 2:54 PM EST Tc from pt requesting results. Please see notes. * Telephone Encounter - Karley Gan MA - 02/07/2024 10:27 AM EST Results placed on pcp's desk for advice. Pt will be contacted with results. * Telephone Encounter - Marisol Garcia - 02/06/2024 3:05 PM EST TC from pt requesting call back regarding Results. Type of results: Holter Date when done: 01/31/2024 Facility: [facility] [place] documented in this encounter Plan of Treatment Upcoming Encounters Date Type Department Care Team (Late st Contact Info) Description 07/11/2024 9:30 AM EDT Office Visit [facility] OPTOMETRY [address] [place], [place] [phone] PabloBassamn, OD [address] [place] [address] 09/12/2024 10:30 AM EDT Office Visit [facility] [address] [place] [address] Nereida John FNP [address] [place] [address] 01/01/2025 10:00 AM EST Office Visit [facility] ADULT DENTAL [address] [place] [address] May Anderson documented as of this encounter Visit Diagnoses Not on filedocumented in this encounter Additional Health Concerns Assessment Noted Time PHQ-9 Depression Total Score: 13 09/04/ 024 10:38 AM EDT documented as of this encounter Care Teams Bleach Chlorinator Relationship Specialty Start Date End Date Nereida John FNP [address] [place] [address] PCP - General Family Medicine 08/09/22 documented as of this encounter
== END 2024-07-02 15:57 | disposition home or self-care (01) ==
LOC: HO.HWS 14:37
PROVIDERS: PCP Registered Nurse; Visit Provider Advanced Practice Midwife
DX: Z01.419 Encounter for gynecological examination (general) (routine) without abnormal findings (principal); E66.9 Obesity, unspecified; Z68.34 Body mass index [BMI] 34.0-34.9, adult
CPT/HCPCS: 99395; 99459

== ENCOUNTER 2024-10-12 13:35 | Outpatient (REF) | payer OTHER, SELFPAY ==
--- OUTSIDE RECORDS SUMMARY | 2024-10-12 13:37 | XMS_ITS | Clinical Summary ---
Author Organization [facility] Address [address] [place] [address] Care Team Providers Care Field Service Representative Name Role Phone Kel Burnham MD Primary [...] 03/30/2018 COVID-19 Vaccine (2023-2 5 season) 2023 Depression Screening 02/29/2024 Influenza Vaccine (#1) 2024 11/25/2016 DTaP,Tdap,and Td Vaccines (2 - [...] 5 Years) and At-Risk Patients (6 to 49 Years) Aged Out No longer eligible b [...] RESULTING AGENCY - 04/03/2018 3:25 PM EST [id number] THINPREP PAP, IMAGED: NEGATIVE FOR SQUAMOUS INTRAEPITHELIAL [...] Recently Relevant to Health Maintenance Care Teams Field Service Representative Relationship Specialty Start Date End Date Kel Burnham MD [address] [place] [phone] PCP - General Internal Medicine 03/30/18
--- OUTSIDE RECORDS SUMMARY | 2024-10-12 13:37 | XMS_ITS | Encounter Summary ---
Author Organization [facility] Address [address] [place] [address] Phone Care Team Providers Care Telecommunications Sales Representative Name Role Phone Brenda Berger MD Primary Care Provider [phone] Encounter Details Date Type Department Care Team (Late st Contact Info) Description 06/05/2009 Documentation [facility] [place] Family Medicine [address] [place] [address] Family Medicine, Physician [address] [place], [place] [phone] Social History Tobacco Use Types Packs/Day Years [...] on filedocumented in this encounter Care Teams Telecommunications Sales Representative Relationship Specialty Start Date End Date Brenda Berger MD [address] [place] [address] TC Renee [address] PCP - General 10/08/16 08/19/22 documented as of this encounter
--- OUTSIDE RECORDS SUMMARY | 2024-10-12 13:37 | XMS_ITS | Encounter Summary ---
Author Organization [employer] Address [address] [facility] 7 [place] [address] Care Team Providers Care Devil Dog Name Role Phone [facility] Primary Care Provider [phone] Reason for Visit * Reason Onset Date Comments Call Back Request 04/11/2023 Encounter Details Date Type Department Care Team ([facility] Contact Info) Description 04/11/2023 Telephone [facility] MEDICINE [address] [place], [place] [phone] [facility] [address] [place] [address] Call Back Request Social History Tobacco Use [...] today (04/11) OV. Please contact pt at [phone] documented in this encounter Plan of Treatment Upcoming Encounters Date Type Department Care Team (Late st Contact Info) Description 11/23/2024 11:15 AM EDT Office Visit [facility] MEDICINE [address] [place] [address] Nereida John FNP [address] [place] [address] 01/01/2025 10:00 AM EST Office Visit [facility] ADULT DENTAL [address] [place] [address] May Anderson documented as of this encounter Visit Diagnoses Not on filedocumented in this encounter Additional Health Concerns Assessment Noted Time PHQ-9 Depression Total Score: 10 023 2:38 PM EST documented as of this encounter Care Teams Devil Dog Relationship Specialty Start Date End Date Nereida John FNP [address] [place] [address] PCP - General Family Medicine 08/09/22 documented as of this encounter
[2024-10-12 16:25] LABS: Appearance Urine Clear; Glucose Urine UA Negative (Negative); PH 6.5 (5.0-9.0); Specific Gravity - Urine <= 1.005 (1.005-1.025); UMIC TRIGGER UA YES
[2024-10-12 16:53] LABS: Alanine Aminotransferase 147 U/L (0-31); Albumin Level 4.5 g/dL (3.5-5.0); Alkaline Phosphatase 59 U/L (39-117); Anion Gap 13 (12-20); Aspartate Amino Transferase 64 U/L (5-31); Blood Urea Nitrogen 10 mg/dL (9-16); Calcium 9.9 mg/dL (8.4-10.2); Carbon Dioxide 24 mmol/L (22-29); Chloride 104 mmol/L (96-108); Estimated Glomerular Filt Rate > 60; Gamma Glutamyl Transpeptidase 44 U/L (7-33); Potassium 4.0 mmol/L (3.3-5.1); Sodium 137 mmol/L (135-145); Total Protein 7.3 g/dL (6.5-8.0)
== END 2024-10-12 13:36 | disposition home or self-care (01) ==
LOC: HO.HHCL 13:35
PROVIDERS: PCP Registered Nurse; Visit Provider Registered Nurse
DX: R74.8 Abnormal levels of other serum enzymes (principal); R80.9 Proteinuria, unspecified
CPT/HCPCS: 36415; 80053; 81001; 82043; 82570; 82977